=== PATIENT | male | born 1975 | race Caucasian/White ===

== ENCOUNTER 2016-06-23 17:44 | Emergency (ER) | payer MEDICARE, OTHER ==
[~2016-06-23] VITALS: Ht 170.2 cm; Wt 72.0 kg
[~2016-06-23 17:44] MED LIST: BENZ1TAB PO; CLON1 PO; ZYPR5TAB PO
--- NOTE | 2016-06-23 22:15 | PD ---
HPI Chief Complaint: Psychiatric Symptoms Time Seen by Provider: 22:09 Travel History International Travel<30 days: No Contact w/Intl Traveler<30days: No Traveled to known affect area: No History of Present Illness HPI Patient comes in with his mother requesting psychiatric evaluation. Patient has been under the care of Dr. Maier. Patient reports has not been sleeping well on his current medication. Patient was evaluated by different psychiatrist on Tuesday had medications adjusted. Patient continues to not sleep well and is having more agitation. Mother reports he has not slept normally for approximately a week. Denies anything making it better or worse. Denies any homicidal or suicidal ideations. Denies any pain anywhere. PFSH Past Medical History Anxiety: Yes Cardiovascular Problems: No Developmental Delay: Yes Diminished Hearing: No Genitourinary: No Musculoskeletal: No Neurologic: No Psychiatric: Yes Reproductive: No Respiratory: No Past Surgical History Abdominal Surgery: No Cardiac Surgery: No Ear Surgery: No Endocrine Surgery: No Eye Surgery: No Genitourinary Surgery: No Gynecologic Surgery: No Oral Surgery: No Thoracic Surgery: No Social History Alcohol Use: No Tobacco Use: No Substance Use: No Allergies-Medications (Allergen,Severity, Reaction): Coded Allergies: Risperidone (Verified Allergy, Severe, "CAN'T MOVE", 06/23/16) Abilify (Verified Allergy, Intermediate, 06/23/16) Reported Meds & Prescriptions Reported Meds & Active Scripts Active Zyprexa (Olanzapine) 5 Mg Tab 5 Mg PO HS Klonopin (Clonazepam) 1 Mg Tab 1 Mg PO BID PRN Review of Systems Except as stated in HPI: all other systems reviewed are Neg Physical Exam Narrative GENERAL: Well-developed, well nourished, in no acute distress, and non-ill appearing. SKIN: Warm and dry. HEAD: Atraumatic. Normocephalic. EYES: Pupils equal and round. EOMI. No scleral icterus. No injection or drainage. ENT: No nasal bleeding or discharge. Mucous membranes pink and moist. NECK: Trachea midline. Supple. No nuclear rigidity. CARDIOVASCULAR: Regular rate and rhythm. No murmur appreciated. RESPIRATORY: No accessory muscle use. No respiratory distress. Clear to auscultation. Breath sounds equal bilaterally. MUSCULOSKELETAL: No obvious deformities. No clubbing. No cyanosis. No edema. Full range of motion. NEUROLOGICAL: Awake and alert. No obvious cranial nerve deficits. Motor grossly within normal limits. Normal speech. PSYCHIATRIC: Appropriate mood and affect. Data Data Last Documented VS Vital Signs Date Time Temp Pulse Resp B/P Pulse Ox O2 Delivery O2 Flow Rate FiO2 06/24/16 01:59 97.6 79 16 117/61 99 Room Air Orders Complete Blood Count With Diff (06/23/16 22:01) Comprehensive Metabolic Panel (06/23/16 22:01) Psych Screen (06/23/16 22:01) Drug Screen, Random Urine (06/23/16 22:01) Alcohol (Ethanol) (06/23/16 22:01) Labs Laboratory Tests Test 06/23/16 22:19 White Blood Count 7.3 TH/MM3 Red Blood Count 4.75 MIL/MM3 Hemoglobin 13.8 GM/DL Hematocrit 39.9 % Mean Corpuscular Volume 84.0 FL Mean Corpuscular Hemoglobin 29.0 PG Mean Corpuscular Hemoglobin 34.5 % Concent Red Cell Distribution Width 13.0 % Platelet Count 227 TH/MM3 Mean Platelet Volume 8.6 FL Neutrophils (%) (Auto) 55.2 % Lymphocytes (%) (Auto) 33.2 % Monocytes (%) (Auto) 7.7 % Eosinophils (%) (Auto) 3.4 % Basophils (%) (Auto) 0.5 % Neutrophils # (Auto) 4.0 TH/MM3 Lymphocytes # (Auto) 2.4 TH/MM3 Monocytes # (Auto) 0.6 TH/MM3 Eosinophils # (Auto) 0.3 TH/MM3 Basophils # (Auto) 0.0 TH/MM3 CBC Comment AUTO DIFF Differential Comment AUTO DIFF CONFIRMED Sodium Level 143 MEQ/L Potassium Level 4.0 MEQ/L Chloride Level 106 MEQ/L Carbon Dioxide Level 29.6 MEQ/L Anion Gap 7 MEQ/L Blood Urea Nitrogen 8 MG/DL Creatinine 0.96 MG/DL Estimat Glomerular Filtration 87 ML/MIN Rate Random Glucose 100 MG/DL Calcium Level 8.5 MG/DL Total Bilirubin 0.3 MG/DL Aspartate Amino Transf 34 U/L (AST/SGOT) Alanine Aminotransferase 40 U/L (ALT/SGPT) Alkaline Phosphatase 70 U/L Total Protein 6.5 GM/DL Albumin 3.8 GM/DL Ethyl Alcohol Level LESS THAN 3 MG/DL MDM Medical Decision Making Medical Screen Exam Complete: Yes Emergency Medical Condition: Yes Differential Diagnosis Schizophrenia, disruptive mood disorder, insomnia, anxiety, other Narrative Course Patient was seen and examined. Labs were obtained and reviewed. Patient medically cleared for further treatment and evaluation by psych. Final disposition per psych. Diagnosis Primary Impression: DMDD (disruptive mood dysregulation disorder) Condition: Stable Santosh Tolbert Jun 23, 2016 22:15
[2016-06-23 22:48] LABS: BASOPHIL % 0.5 % (0.0-2.0); EOSINOPHIL # 0.3 TH/MM3 (0-0.4); EOSINOPHIL % 3.4 % (0.0-4.0); HEMATOCRIT 39.9 % (39.0-51.0); LYMPH % 33.2 % (9.0-44.0); LYMPHOCYTE # 2.4 TH/MM3 (1.0-4.8); MEAN CORPUSCULAR HGB CONC 34.5 % (32.0-36.0); MONO % 7.7 % (0.0-8.0); NEUT % 55.2 % (16.0-70.0); PLATELET COUNT 227 TH/MM3 (150-450); RED BLOOD COUNT 4.75 MIL/MM3 (4.50-5.90); WHITE BLOOD COUNT 7.3 TH/MM3 (4.0-11.0)
[2016-06-23 22:56] LABS: HEMO FLAGS AUTO DIFF
[2016-06-23 23:05] LABS: ALKALINE PHOSPHATASE 70 U/L (45-117); TOTAL BILIRUBIN ADULT 0.3 MG/DL (0.2-1.0)
[2016-06-23 23:19] LABS: ALT (GPT) 40 U/L (12-78); ANION GAP 7 MEQ/L (5-15); AST (GOT) 34 U/L (15-37); BICARBONATE 29.6 MEQ/L (21.0-32.0); BLOOD UREA NITROGEN 8 MG/DL (7-18); CHLORIDE 106 MEQ/L (98-107); GLOMERULAR FILTRATION RATE 87 ML/MIN (>89); SODIUM (NA) 143 MEQ/L (136-145)
[2016-06-23 23:25] LABS: SCAN/DIFF AUTO DIFF CONFIRMED
[2016-06-24 01:59] VITALS: BP 117/61; PULSE 79; RESP 16; TEMP 97.6; O2SAT 99
[2016-06-28] MEDS ORDERED: ZYPR15TA PO (09:00)
[2016-06-28] MEDS ORDERED: ZYPR5TAB PO (09:00)
[2016-06-28] MEDS ORDERED: QUET400XR PO ×2 (11:15→11:19)
[2016-07-05] MEDS ORDERED: SERO100T PO (11:17)
[2016-07-05] MEDS ORDERED: QUET400XR PO (11:17)
[2016-07-05] MEDS ORDERED: CLON1 PO (11:17)
[2016-07-26] MEDS ORDERED: SERO100T PO (10:51)
[2016-07-26] MEDS ORDERED: QUET400XR PO (10:51)
[2016-09-03] MEDS ORDERED: SAPH5SUB3 SL ×2 (10:29→10:32)
[2016-09-16] MEDS ORDERED: HALO2TAB PO ×2 (09:22→10:05)
[2016-09-16] MEDS ORDERED: BENZ1TAB PO ×2 (10:03→10:05)
[2016-09-28] MEDS ORDERED: SERO100T PO ×2 (11:00)
[2016-10-12] MEDS ORDERED: ZIPR40 PO ×2 (09:45→09:46)
[2016-10-27] MEDS ORDERED: SERO300T PO ×2 (09:38→09:39)
[2016-10-27] MEDS ORDERED: LORA-474 PO (09:39)
== END 2016-06-24 07:14 | disposition home or self-care (01) ==
LOC: NEPC 17:44
DX: F34.81 Disruptive mood dysregulation disorder (principal)
CPT/HCPCS: 80053; 80320; 85025; 99282

== ENCOUNTER 2016-07-29 08:52 | Emergency (ER) | payer MEDICARE, OTHER ==
[~2016-07-29] VITALS: Ht 172.7 cm; Wt 70.0 kg
[~2016-07-29 08:52] MED LIST changes: -BENZ1TAB PO; -CLON1 PO; +QUET400XR PO; +SERO100T PO; -ZYPR5TAB PO
[2016-07-29 08:53] VITALS: BP 114/66; PULSE 54; RESP 16; O2SAT 98
[2016-07-29 09:07] VITALS: BP 110/66; PULSE 54; RESP 18; TEMP 97.5; O2SAT 99
[2016-07-29 09:49] LABS: AUTOMATED NEUTROPHIL # 5.1 TH/MM3 (1.8-7.7); BASOPHIL % 0.2 % (0.0-2.0); EOSINOPHIL % 0.6 % (0.0-4.0); HEMATOCRIT 46.9 % (39.0-51.0); HEMO FLAGS DIFF FINAL; LYMPH % 21.2 % (9.0-44.0); LYMPHOCYTE # 1.5 TH/MM3 (1.0-4.8); MEAN CELL VOLUME 84.5 FL (80.0-100.0); MEAN CORPUSCULAR HEMOGLOBIN 27.9 PG (27.0-34.0); MEAN CORPUSCULAR HGB CONC 33.1 % (32.0-36.0); MONO % 5.8 % (0.0-8.0); NEUT % 72.2 % (16.0-70.0); PLATELET COUNT 262 TH/MM3 (150-450); RED BLOOD COUNT 5.56 MIL/MM3 (4.50-5.90); RED CELL DISTRIBUTION WIDTH 13.1 % (11.6-17.2); WHITE BLOOD COUNT 7.1 TH/MM3 (4.0-11.0)
[2016-07-29 10:07] LABS: BICARBONATE 28.2 MEQ/L (21.0-32.0); POTASSIUM 3.8 MEQ/L (3.5-5.1)
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
[2016-07-29 13:00] VITALS: BP 110/59; PULSE 61; RESP 16; O2SAT 98
[2016-09-03] MEDS ORDERED: SAPH5SUB3 SL ×2 (10:29→10:32)
[2016-09-16] MEDS ORDERED: HALO2TAB PO ×2 (09:22→10:05)
[2016-09-16] MEDS ORDERED: BENZ1TAB PO ×2 (10:03→10:05)
[2016-09-28] MEDS ORDERED: SERO100T PO ×2 (11:00)
[2016-10-12] MEDS ORDERED: ZIPR40 PO ×2 (09:45→09:46)
[2016-10-27] MEDS ORDERED: SERO300T PO ×2 (09:38→09:39)
[2016-10-27] MEDS ORDERED: LORA-474 PO (09:39)
[2016-11-12] MEDS ORDERED: LORA-474 PO ×3 (11:46→11:47)
[2016-11-12] MEDS ORDERED: SERO300T PO (11:46)
== END 2016-07-29 13:45 ==
LOC: NEPE 08:52 → NETRI 13:45
DX: M79.1 Myalgia (principal); R53.83 Other fatigue; T43.595A Adverse effect of other antipsychotics and neuroleptics, initial encounter; F84.0 Autistic disorder; Y92.009 Unspecified place in unspecified non-institutional (private) residence as the place of occurrence of the external cause
CPT/HCPCS: 80048; 82550; 85025; 99283

== ENCOUNTER 2016-07-29 13:47 | Inpatient (IN) | payer MEDICARE, OTHER ==
[~2016-07-29] VITALS: Ht 170.2 cm; Wt 67.5 kg
[2016-07-29 14:22] VITALS: BP 117/57; PULSE 60; O2SAT 99
[2016-07-29] MEDS ORDERED: ACETAMINOPHEN 325 MG TAB PO PRN (15:00)
[2016-07-29] MEDS ORDERED: ALUMINUM/MAGNESIUM/SIMETH 30 ML CUP PO PRN (15:00)
[2016-07-29] MEDS ORDERED: NICOTINE 21 MG/24 HR PATCH T-DERMAL SCH (15:00)
[2016-07-29] MEDS ORDERED: LORazepam 2 MG/ML VIAL IM PRN (15:00)
[2016-07-29] MEDS ORDERED: MAGNESIUM HYDROXIDE SUSP 30 ML CUP PO PRN (15:00)
[2016-07-29] MEDS ORDERED: LORazepam 1 MG TAB PO PRN (15:00)
[2016-07-29] MEDS ORDERED: REMOVE OLD NICOTINE PATCH T-DERMAL SCH (21:00)
[2016-07-30 06:05] VITALS: BP 114/58; PULSE 60; RESP 18; TEMP 99.3; O2SAT 98
[2016-07-30 07:44] LABS: AUTOMATED NEUTROPHIL # 6.3 TH/MM3 (1.8-7.7); BASOPHIL % 0.1 % (0.0-2.0); EOSINOPHIL % 0.4 % (0.0-4.0); HEMATOCRIT 44.5 % (39.0-51.0); HEMO FLAGS DIFF FINAL; LYMPH % 21.6 % (9.0-44.0); LYMPHOCYTE # 1.9 TH/MM3 (1.0-4.8); MEAN CELL VOLUME 82.4 FL (80.0-100.0); MEAN CORPUSCULAR HGB CONC 33.9 % (32.0-36.0); MONO % 6.2 % (0.0-8.0); NEUT % 71.7 % (16.0-70.0); PLATELET COUNT 246 TH/MM3 (150-450); RED BLOOD COUNT 5.41 MIL/MM3 (4.50-5.90); RED CELL DISTRIBUTION WIDTH 13.1 % (11.6-17.2); WHITE BLOOD COUNT 8.7 TH/MM3 (4.0-11.0)
[2016-07-30 08:24] LABS: ANION GAP 10 MEQ/L (5-15); BICARBONATE 28.4 MEQ/L (21.0-32.0); BLOOD UREA NITROGEN 14 MG/DL (7-18); CHLORIDE 102 MEQ/L (98-107); GLOMERULAR FILTRATION RATE 100 ML/MIN (>89); HDL CHOLESTEROL 49.6 MG/DL (40.0-60.0); LDL CHOLESTEROL 83 MG/DL (0-99); POTASSIUM 3.5 MEQ/L (3.5-5.1); SODIUM (NA) 140 MEQ/L (136-145)
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
[2016-07-30 13:53] LABS: HEMOGLOBIN A1a 0.8 %; HEMOGLOBIN A1b 0.9 %; HEMOGLOBIN F 0.8 %; HEMOGLOBIN LA1C 1.8 %; HEMOGLOBIN P3 3.5 %
--- NOTE | 2016-07-30 16:47 | RADRPT ---
EXAM DATE/TIME: 07/30/2016 16:27 [facility] COMPARISON: CT BRAIN W/O CONTRAST, January 15, 2011, 15:54. INDICATIONS : Altered mental status. RADIATION DOSE: 36.33 CTDIvol (mGy) MEDICAL HISTORY : Developmental delay. SURGICAL HISTORY : None. ENCOUNTER: Initial ACUITY: 1 day PAIN SCALE: 0/10 LOCATION: cranial TECHNIQUE: Multiple contiguous axial images were obtained of the head. Using automated exposure control and adj ustment of the mA and/or kV according to patient size, radiation dose was kept as low as reasonably a chievable to obtain optimal diagnostic quality images. FINDINGS: CEREBRUM: The ventricles are normal for age. No evidence of midline shift, mass lesion, hemorrhage or acute in farction. No extra-axial fluid collections are seen. POSTERIOR FOSSA: The cerebellum and brainstem are intact. The 4th ventricle is midline. The cerebellopontine angle i s unremarkable. EXTRACRANIAL: The visualized portion of the orbits is intact. SKULL: The calvaria is intact. No evidence of skull fracture. CONCLUSION: No acute disease. Gwyn Del Rio MD on July 30, 2016 at 16:45 Board Certified Radiologist. This report was verified electronically.
[2016-07-30 19:27] VITALS: BP 118/61; PULSE 57; RESP 18; TEMP 98.4; O2SAT 97
[2016-07-31 06:22] VITALS: BP 107/58; PULSE 51; RESP 18; TEMP 98.5; O2SAT 97
[2016-07-31 18:27] VITALS: BP 126/56; PULSE 74; RESP 18; TEMP 98.7; O2SAT 97
--- NOTE | 2016-07-31 21:04 | HHI.PYPN ---
Subjective Remarks Pt seen and discussed with staff. RN reports that pt's oral intake has increased but requires staff prompting and prefers packaged food. He is alert without sedation. No behavioral problems on unit. Objective Alert: Yes [place]: Person, Place Mood: Calm Affect: Restricted Memory Intact: Comment (intact) Hallucinations: Other (denies and does not appear to be responding internally) Delusions: No Delusion Type: Other (none) Suicidal: Ideation (denies) Homicidal: Ideation (denies) Insight/Judgement poor Vitals/IOs Vital Signs Date Time Temp Pulse Resp B/P Pulse Ox O2 Delivery O2 Flow Rate FiO2 07/31/16 18:27 98.7 74 18 126/56 97 Assessment & Plan Problem List: (1) Adjustment disorder with mixed disturbance of emotions and conduct ICD Code: F43.25 Assessment & Plan Continue observation and medication washout for now. Continue to monitor intake. Estimated LOS: days Justification for Cont. Inpt. impairments in self care Kina Esposito MD Jul 31, 2016 21:04
[2016-08-01 06:00] VITALS: BP 134/84; PULSE 58; RESP 16; TEMP 97.6; O2SAT 94
--- NOTE | 2016-08-01 15:32 | HHI.PYPN ---
Subjective Remarks Pt seen and discussed with staff. Pt has been cooperative with care. No agitation or aggression. Staff report improved eating and drinking and that pt has preferences for sweets including fruit. Pt has been pacing halls. He states that he is feeling "fine". Limited engagement. No SI/HI Objective Alert: Yes [place]: Person, Place Mood: Calm Affect: Restricted Memory Intact: Comment (intact) Hallucinations: Other (denies and does not appear to be responding internally) Delusions: No Delusion Type: Other (none) Suicidal: Ideation (denies) Homicidal: Ideation (denies) Insight/Judgement poor Vitals/IOs Vital Signs Date Time Temp Pulse Resp B/P Pulse Ox O2 Delivery O2 Flow Rate FiO2 08/01/16 06:00 97.6 58 16 134/84 94 Assessment & Plan Problem List: (1) Adjustment disorder with mixed disturbance of emotions and conduct ICD Code: F43.25 Assessment & Plan Continue current tx plan. Estimated LOS: days Justification for Cont. Inpt. risk of decompensation. Kina Esposito MD Aug 01, 2016 15:32
[2016-08-01 18:34] VITALS: BP 135/69; PULSE 88; RESP 17; TEMP 98.2; O2SAT 97
[2016-08-02 05:57] VITALS: BP 115/62; PULSE 53; RESP 16; TEMP 97.6; O2SAT 97
--- NOTE | 2016-08-02 15:47 | HHI.PYPN ---
Subjective Remarks Patient seen in [place] sleeping in Loren chair with nurse Aleksandar, patient somewhat delayed in his responses somewhat anxious also prior contact over no behavioral issues responses are brief and somewhat concrete. Though he denies suicidality of voices at this time. For now continue treatment and observation and assessment Review of Systems Except as stated in HPI: all other systems reviewed are Neg Objective Alert: Yes [place]: Person, Place Mood: Calm Affect: Restricted Memory Intact: Comment (intact) Hallucinations: Other (denies and does not appear to be responding internally) Delusions: No Delusion Type: Other (none) Suicidal: Ideation (denies) Homicidal: Ideation (denies) Insight/Judgement Poor Vitals/IOs Vital Signs Date Time Temp Pulse Resp B/P Pulse Ox O2 Delivery O2 Flow Rate FiO2 08/02/16 05:57 97.6 53 16 115/62 97 Intake and Output 08/01/16 08/01/16 08/02/16 08:00 16:00 00:00 Intake Total 120 ml 240 ml Balance 120 ml 240 ml Assessment & Plan Problem List: (1) Adjustment disorder with mixed disturbance of emotions and conduct ICD Code: F43.25 Assessment & Plan Estimated LOS: days patient showing no signs of aggression or irritability at this time he appears more withdrawn and isolating. For now continue observation Justification for Cont. Inpt. At this time patient will decompensate if placed in the lower level of care Discharge Planning To be determined Gwyn Lassiter MD Aug 02, 2016 15:47
[2016-08-02 18:56] VITALS: BP 112/61; PULSE 57; RESP 16; TEMP 97.6; O2SAT 94
[2016-08-03 06:13] VITALS: BP 100/58; PULSE 60; RESP 18; TEMP 98.3; O2SAT 96
--- NOTE | 2016-08-03 11:36 | HHI.PYPN ---
Subjective Remarks Patient seen in day room with nurse Leda, patient sitting in chair at table somewhat guarded look on his face. He is alert responses to my questions are somewhat delayed brief basically saying "I wish". He has otherwise been no behavioral problems. Did eat all his breakfast this morning. Nursing staff has been in contact with patient's mother and has arranged for meeting with us for about 9 AM tomorrow morning. At mother's request we'll repeat labs on the patient tomorrow including CBC CMP and UA to verify patient's level of hydration , that there is any processes that he has developed the interval between the last labs Review of Systems Except as stated in HPI: all other systems reviewed are Neg Objective Alert: Yes [place]: Person, Place Mood: Calm Affect: Restricted Memory Intact: Comment (intact) Hallucinations: Other (denies and does not appear to be responding internally) Delusions: No Delusion Type: Other (none) Suicidal: Ideation (denies) Homicidal: Ideation (denies) Insight/Judgement Very poor Vitals/IOs Vital Signs Date Time Temp Pulse Resp B/P Pulse Ox O2 Delivery O2 Flow Rate FiO2 08/03/16 06:13 98.3 60 18 100/58 96 Intake and Output 08/02/16 08/02/16 08/03/16 08:00 16:00 00:00 Intake Total 1380 ml Balance 1380 ml Assessment & Plan Problem List: (1) Adjustment disorder with mixed disturbance of emotions and conduct ICD Code: F43.25 Assessment & Plan Estimated LOS: days patient no significant behavioral problems, does need redirection encouragement at times. We'll meet with patient's mother tomorrow morning about 9 AM will repeat labs tomorrow morning Justification for Cont. Inpt. At this time patient will decompensate if placed in the lower level of care Discharge Planning To be determined Gwyn Lassiter MD Aug 03, 2016 11:36
[2016-08-03 20:27] VITALS: BP 117/71; PULSE 60; RESP 16; TEMP 97.8; O2SAT 96
[2016-08-04 04:19] LABS: BACTERIA, URINE RARE /hpf; BLOOD, URINE NEG (NEG); COMMENT (UR) CULT NOT INDICATED; CULTURE IF INDICATED CULT NOT INDICATED; GLUCOSE,URINE NEG (NEG); KETONE, URINE NEG (NEG); MUCUS URINE FEW /lpf (OCC); NITRITE,URINE NEG (NEG); PH, URINE 6.5 (5.0-8.5); SQUAMOUS EPITHELIAL CELL URINE <1 /hpf (0-5); URINE COLOR YELLOW (YELLW/STRAW)
[2016-08-04 06:01] VITALS: BP 111/56; PULSE 54; RESP 15; TEMP 99.1; O2SAT 97
[2016-08-04 08:01] LABS: AUTOMATED NEUTROPHIL # 7.4 TH/MM3 (1.8-7.7); BASOPHIL % 0.2 % (0.0-2.0); EOSINOPHIL # 0.4 TH/MM3 (0-0.4); EOSINOPHIL % 3.5 % (0.0-4.0); HEMATOCRIT 43.6 % (39.0-51.0); HEMO FLAGS DIFF FINAL; LYMPH % 19.6 % (9.0-44.0); LYMPHOCYTE # 2.1 TH/MM3 (1.0-4.8); MEAN CELL VOLUME 83.1 FL (80.0-100.0); MEAN CORPUSCULAR HEMOGLOBIN 28.8 PG (27.0-34.0); MEAN CORPUSCULAR HGB CONC 34.6 % (32.0-36.0); MONO % 7.4 % (0.0-8.0); NEUT % 69.3 % (16.0-70.0); PLATELET COUNT 258 TH/MM3 (150-450); RED BLOOD COUNT 5.24 MIL/MM3 (4.50-5.90); RED CELL DISTRIBUTION WIDTH 12.9 % (11.6-17.2); WHITE BLOOD COUNT 10.6 TH/MM3 (4.0-11.0)
[2016-08-04 08:07] LABS: ALT (GPT) 17 U/L (12-78); ANION GAP 7 MEQ/L (5-15); AST (GOT) 6 U/L (15-37); BICARBONATE 28.9 MEQ/L (21.0-32.0); BLOOD UREA NITROGEN 11 MG/DL (7-18); CHLORIDE 101 MEQ/L (98-107); GLOMERULAR FILTRATION RATE 106 ML/MIN (>89); POTASSIUM 3.8 MEQ/L (3.5-5.1); SODIUM (NA) 137 MEQ/L (136-145)
[2016-08-04 08:09] LABS: ALKALINE PHOSPHATASE 77 U/L (45-117); TOTAL BILIRUBIN ADULT 0.4 MG/DL (0.2-1.0)
--- NOTE | 2016-08-04 12:30 | HHI.PYPN ---
Subjective Remarks Met with patient's mother and counselor Lora, spoke with her for about 45 minutes. Discussed patient's behavior chronologically his various contact with mental health system since an adolescent, prior medications, and hospitalizations. Along with her hopes and expectations for patients recovery. It then discussed patient with the treatment team her we discussed diagnosis treatment medication management and discharge plans. And then met with patient on the unit, as is coming out of unit he was at the door to the unit started to walk out but was easily redirected back on the unit. Today he was also found to be laying down on a bed and another patient's room, again easily redirected from there. Patient is eating well taking fluids and, no significant out-of- control behaviors noted though continues to wander and is somewhat aimless manner. His responses are brief quite childlike and minimal. We'll continue to observe at the present time with though psychotropic medications continue to further assessment of his behaviors. No considering the fact that he had of his father 3 years ago and his grandmother about a year ago there may be a component of depression with this. Mother also stated she has noted episodes of behaviors that could be perhaps interpreted as hypomanic to manic behavior. We may want to consider a mood stabilizer. Routine labs drawn this morning have all come back within normal limits Review of Systems Except as stated in HPI: all other systems reviewed are Neg Objective Alert: Yes [place]: Person, Place Mood: Calm Affect: Restricted Memory Intact: Comment (intact) Hallucinations: Other (denies and does not appear to be responding internally) Delusions: No Delusion Type: Other (none) Suicidal: Ideation (denies) Homicidal: Ideation (denies) Insight/Judgement Very poor Labs Test 08/04/16 08/04/16 08/04/16 03:45 06:20 06:26 Urine Color YELLOW Urine Turbidity HAZY Urine pH 6.5 Urine Specific [place] 1.018 Urine Protein TRACE mg/dL Urine Glucose (UA) NEG mg/dL Urine Ketones NEG mg/dL Urine Occult Blood NEG Urine Nitrite NEG Urine Bilirubin NEG Urine Urobilinogen LESS THAN 2.0 MG/DL Urine Leukocyte Esterase NEG Urine RBC 5 /hpf Urine WBC 2 /hpf Urine Squamous Epithelial <1 /hpf Cells Urine Amorphous Sediment RARE Urine Bacteria RARE /hpf Urine Mucus FEW /lpf Urine Yeast (Budding) RARE Microscopic Urinalysis Comment CULT NOT INDICATED Sodium Level 137 MEQ/L Potassium Level 3.8 MEQ/L Chloride Level 101 MEQ/L Carbon Dioxide Level 28.9 MEQ/L Anion Gap 7 MEQ/L Blood Urea Nitrogen 11 MG/DL Creatinine 0.81 MG/DL Estimat Glomerular Filtration 106 ML/MIN Rate Random Glucose 80 MG/DL Calcium Level 9.4 MG/DL Total Bilirubin 0.4 MG/DL Aspartate Amino Transf 6 U/L (AST/SGOT) Alanine Aminotransferase 17 U/L (ALT/SGPT) Alkaline Phosphatase 77 U/L Total Protein 7.2 GM/DL Albumin 4.1 GM/DL White Blood Count 10.6 TH/MM3 Red Blood Count 5.24 MIL/MM3 Hemoglobin 15.1 GM/DL Hematocrit 43.6 % Mean Corpuscular Volume 83.1 FL Mean Corpuscular Hemoglobin 28.8 PG Mean Corpuscular Hemoglobin 34.6 % Concent Red Cell Distribution Width 12.9 % Platelet Count 258 TH/MM3 Mean Platelet Volume 9.1 FL Neutrophils (%) (Auto) 69.3 % Lymphocytes (%) (Auto) 19.6 % Monocytes (%) (Auto) 7.4 % Eosinophils (%) (Auto) 3.5 % Basophils (%) (Auto) 0.2 % Neutrophils # (Auto) 7.4 TH/MM3 Lymphocytes # (Auto) 2.1 TH/MM3 Monocytes # (Auto) 0.8 TH/MM3 Eosinophils # (Auto) 0.4 TH/MM3 Basophils # (Auto) 0.0 TH/MM3 CBC Comment DIFF FINAL Differential Comment Vitals/IOs Vital Signs Date Time Temp Pulse Resp B/P Pulse Ox O2 Delivery O2 Flow Rate FiO2 08/04/16 06:01 99.1 54 15 111/56 97 Intake and Output 08/03/16 08/03/16 08/04/16 08:00 16:00 00:00 Intake Total 840 ml 720 ml Balance 840 ml 720 ml Assessment & Plan Problem List: (1) Adjustment disorder with mixed disturbance of emotions and conduct ICD Code: F43.25 (2) Autism spectrum disorder ICD Code: F84.0 Assessment & Plan Estimated LOS: days patient continues to monitor the vague escape seeking behaviors. We'll further monitor thus psychotropics to assess stability of mood and behavior. We'll continue to consider possibility of an antidepressant and a mood stabilizer Justification for Cont. Inpt. At this time patient will decompensate if placed in a lower level of care Discharge Planning To be determined Gwyn Lassiter MD Aug 04, 2016 12:30
[2016-08-04 20:01] VITALS: BP 113/62; PULSE 68; RESP 17; TEMP 98.2; O2SAT 95
[2016-08-05 06:24] VITALS: BP 101/62; PULSE 58; RESP 16; TEMP 97.8; O2SAT 97
[2016-08-05 09:01] VITALS: BP 99/55; PULSE 62
--- NOTE | 2016-08-05 12:27 | HHI.PYPN ---
Subjective Remarks Patient seen in dayroom and in [place] with nurse Anamika. Chart reviewed. It appears patient's appetite is good and he is sleeping okay, patient continues wandering the unit somewhat confused expression on his face wandering into other patient's rooms and looking towards the dorsal unit. He is easily redirectable, there appears to been no behavioral issues related to this. However when considering mother's history of patient's episodes of mood lability and possible arousable I think a trial of a mood stabilizer is indicated. We will start patient on Tegretol chewable 100 mg twice a day Review of Systems Except as stated in HPI: all other systems reviewed are Neg Objective Alert: Yes [place]: Person, Place Mood: Anxious (mildly), Calm Affect: Restricted Memory Intact: Comment (intact) Hallucinations: Other (denies and does not appear to be responding internally) Delusions: No Delusion Type: Other (none) Suicidal: Ideation (denies) Homicidal: Ideation (denies) Insight/Judgement Very poor Vitals/IOs Vital Signs Date Time Temp Pulse Resp B/P Pulse Ox O2 Delivery O2 Flow Rate FiO2 08/05/16 09:01 62 99/55 08/05/16 06:24 97.8 16 97 Intake and Output 08/04/16 08/04/16 08/05/16 08:00 16:00 00:00 Intake Total 240 ml Balance 240 ml Assessment & Plan Problem List: (1) Adjustment disorder with mixed disturbance of emotions and conduct ICD Code: F43.25 (2) Autism spectrum disorder ICD Code: F84.0 Assessment & Plan Estimated LOS: days patient continues to wander somewhat confused look on his face. Responses continue quite brief and minimal. Appetite and sleep seem to be doing fairly well. Will initiate Tegretol Justification for Cont. Inpt. At this time patient will decompensate if place to the lower level of care Discharge Planning To be determined Gwyn Lassiter MD Aug 05, 2016 12:26
[2016-08-05 18:00] VITALS: BP 112/73; PULSE 75; RESP 17; TEMP 98.1; O2SAT 97
[2016-08-06 06:00] VITALS: BP 103/62; PULSE 51; RESP 18; TEMP 98.1
--- NOTE | 2016-08-06 15:08 | HHI.PYPN ---
Subjective Remarks Patient seen in day room, patient no behavioral problems. He continues to wander the halls at times laying down on other patient's beds but is easily redirected away from there. His appetite is been good. Is been sleeping well. I also did talk with patient's mother discussing the trowel of Tegretol. Patient mother would prefer we give the patient over the weekend to observe his behavior see if he returns more to her perceived prior level of functioning. I agreed to this. For now continue treatment and observation Review of Systems Except as stated in HPI: all other systems reviewed are Neg Objective Alert: Yes [place]: Person, Place Mood: Anxious (mildly), Calm Affect: Restricted Memory Intact: Comment (intact) Hallucinations: Other (denies and does not appear to be responding internally) Delusions: No Delusion Type: Other (none) Suicidal: Ideation (denies) Homicidal: Ideation (denies) Insight/Judgement Very poor Vitals/IOs Vital Signs Date Time Temp Pulse Resp B/P Pulse Ox O2 Delivery O2 Flow Rate FiO2 08/06/16 06:00 98.1 51 18 103/62 08/05/16 18:00 97 Intake and Output 08/05/16 08/05/16 08/06/16 08:00 16:00 00:00 Intake Total 480 ml 1200 ml 960 ml Balance 480 ml 1200 ml 960 ml Assessment & Plan Problem List: (1) Adjustment disorder with mixed disturbance of emotions and conduct ICD Code: F43.25 (2) Autism spectrum disorder ICD Code: F84.0 Assessment & Plan Estimated LOS: days patient continues to wander, please redirectable. So far showed no significant behavioral issues, is eating well sleeping well. For now continue observation assessment Justification for Cont. Inpt. At this time patient will decompensate if placed in a lower level of care Discharge Planning To be determined Gwyn Lassiter MD Aug 06, 2016 15:08
[2016-08-06 18:00] VITALS: BP 113/57; PULSE 74; RESP 18; TEMP 98.6; O2SAT 96
[2016-08-07 05:28] VITALS: BP 102/58; PULSE 55; RESP 16; TEMP 97.6; O2SAT 96
--- NOTE | 2016-08-07 14:22 | HHI.PYPN ---
Subjective Remarks Patient was seen and case discussed with nursing. Patient is anxious and hypoverbal. Flat affect. Guarded. His behavior is likely due to Asperger's. Is not on any medications at this time. Largely keeps to himself. Denies suicidal ideations intent or plan. Objective Alert: Yes [place]: Person, Place Mood: Anxious (mildly) Affect: Flat Memory Intact: Comment (intact) Hallucinations: Other (denies and does not appear to be responding internally) Delusions: No Delusion Type: Other (none) Suicidal: Ideation (denies) Homicidal: Ideation (denies) Insight/Judgement Poor Vitals/IOs Vital Signs Date Time Temp Pulse Resp B/P Pulse Ox O2 Delivery O2 Flow Rate FiO2 08/07/16 05:28 97.6 55 16 102/58 96 Intake and Output 08/06/16 08/06/16 08/07/16 08:00 16:00 00:00 Intake Total 480 ml 240 ml Balance 480 ml 240 ml Assessment & Plan Problem List: (1) Adjustment disorder with mixed disturbance of emotions and conduct ICD Code: F43.25 (2) Autism spectrum disorder ICD Code: F84.0 Assessment & Plan Continue current treatment plan Justification for Cont. Inpt. Patient will decompensate in a less restrictive setting Roger Thorpe DO Aug 07, 2016 14:22
--- NOTE | 2016-08-08 11:59 | HHI.PYPN ---
Subjective Remarks The patient was seen and case discussed with nursing. Patient is more interactive today. He went to the general area for lunch without direction from the [employer]. Remains anxious and blunted however. Compliant with his medications. During the one-word answers to most questions. Denies auditory visual hallucinations. Denies suicidal ideation intent or plan Objective Alert: Yes [place]: Person, Place Mood: Anxious, Oppositional Affect: Blunted Memory Intact: Comment (intact) Hallucinations: Other (denies and does not appear to be responding internally) Delusions: No Delusion Type: Other (none) Suicidal: Ideation (denies) Homicidal: Ideation (denies) Insight/Judgement Improving Vitals/IOs Vital Signs Date Time Temp Pulse Resp B/P Pulse Ox O2 Delivery O2 Flow Rate FiO2 08/07/16 05:28 97.6 55 16 102/58 96 Intake and Output 08/07/16 08/07/16 08/08/16 08:00 16:00 00:00 Intake Total 240 ml 720 ml 1080 ml Output Total 0 ml Balance 240 ml 720 ml 1080 ml Assessment & Plan Problem List: (1) Adjustment disorder with mixed disturbance of emotions and conduct ICD Code: F43.25 (2) Autism spectrum disorder ICD Code: F84.0 Assessment & Plan Continue current treatment plan Justification for Cont. Inpt. Patient will decompensate in a less restrictive setting Roger Thorpe DO Aug 08, 2016 11:59
[2016-08-08 19:04] VITALS: BP 122/58; PULSE 68; RESP 18; TEMP 98.1; O2SAT 96
[2016-08-09 05:27] VITALS: BP 107/67; PULSE 57; RESP 17; TEMP 97.9; O2SAT 97
--- NOTE | 2016-08-09 16:12 | HHI.PYPN ---
Subjective Remarks Patient discussed with treatment team and patient's mother, chart review, patient seen on unit. Mother feels patient is improving though not back to her somewhat wishful baseline. We did discuss alternatives including the addition of a mood stabilizer, Tegretol, will follow up with [facility] and Dr. barnhart. Or perhaps having her son go home with her tomorrow drug-free with continued observation and assessment at home the follow-up with next week. We also reassured patient's mother that she could have her son brought back for ED for a screening assessment at any time if she feels he is decompensating. Mother decided the latter option thus patient will be discharged tomorrow to his mother Review of Systems Except as stated in HPI: all other systems reviewed are Neg Objective Alert: Yes [place]: Person, Place Mood: Anxious, Oppositional Affect: Blunted Memory Intact: Comment (intact) Hallucinations: Other (denies and does not appear to be responding internally) Delusions: No Delusion Type: Other (none) Suicidal: Ideation (denies) Homicidal: Ideation (denies) Insight/Judgement Very poor Labs Test 08/09/16 06:20 Carbamazepine (Tegretol) Level LESS THAN 0.5 MCG/ML Vitals/IOs Vital Signs Date Time Temp Pulse Resp B/P Pulse Ox O2 Delivery O2 Flow Rate FiO2 08/09/16 05:27 97.9 57 17 107/67 97 Intake and Output 08/08/16 08/08/16 08/09/16 08:00 16:00 00:00 Intake Total 840 ml 600 ml Balance 840 ml 600 ml Assessment & Plan Problem List: (1) Adjustment disorder with mixed disturbance of emotions and conduct ICD Code: F43.25 (2) Autism spectrum disorder ICD Code: F84.0 Assessment & Plan Estimated LOS: days patient showing no significant behavior problems at this time, though he still wonders and needs redirection he is somewhat passive. This sleeping well and his appetite is good. For now consider discharge tomorrow to his mother Justification for Cont. Inpt. Will consider discharge tomorrow towards mother Discharge Planning See above Gwyn Lassiter MD Aug 09, 2016 16:12
[2016-08-09 18:00] VITALS: BP 126/60; PULSE 75; RESP 16; TEMP 97.9; O2SAT 97
[2016-08-10 06:00] VITALS: BP 112/68; PULSE 74; RESP 18; TEMP 96.9; O2SAT 97
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
[2016-09-03] MEDS ORDERED: SAPH5SUB3 SL ×2 (10:29→10:32)
[2016-09-16] MEDS ORDERED: HALO2TAB PO ×2 (09:22→10:05)
[2016-09-16] MEDS ORDERED: BENZ1TAB PO ×2 (10:03→10:05)
[2016-09-28] MEDS ORDERED: SERO100T PO ×2 (11:00)
[2016-10-12] MEDS ORDERED: ZIPR40 PO ×2 (09:45→09:46)
[2016-10-27] MEDS ORDERED: SERO300T PO ×2 (09:38→09:39)
[2016-10-27] MEDS ORDERED: LORA-474 PO (09:39)
[2016-11-12] MEDS ORDERED: LORA-474 PO ×3 (11:46→11:47)
[2016-11-12] MEDS ORDERED: SERO300T PO (11:46)
== END 2016-08-10 12:30 | disposition home or self-care (01) | DRG 882 ==
LOC: H260 13:47 → H250 07-31 21:56
PROVIDERS: ADMIT Psychiatry & Neurology Psychiatry; ATTEND Psychiatry & Neurology Psychiatry
DX: F43.25 Adjustment disorder with mixed disturbance of emotions and conduct (principal); F84.0 Autistic disorder; M79.1 Myalgia; R53.83 Other fatigue; T43.595A Adverse effect of other antipsychotics and neuroleptics, initial encounter; Y92.009 Unspecified place in unspecified non-institutional (private) residence as the place of occurrence of the external cause
CPT/HCPCS: 70450; 80048; 80053; 80061; 80156; 81001; 82550; 83036; 84443; 85025; 99283

== ENCOUNTER 2016-10-13 17:58 | Inpatient (IN) | payer MEDICARE, OTHER ==
[~2016-10-13] VITALS: Ht 172.7 cm; Wt 72.5 kg
[~2016-10-13 17:58] MED LIST changes: -QUET400XR PO; -SERO100T PO; +ZIPR40 PO
[2016-10-13 18:00] VITALS: BP 155/84; PULSE 86; RESP 24; TEMP 97.9; O2SAT 97
--- NOTE | 2016-10-13 18:14 | PD ---
Physical Exam Time Seen by Provider: 18:07 Narrative 41yo M having "breakdown." Having verbal outbursts. Followed by Dr. Maier. repetitive speech with outbursts in triage. Started last Tuesday and has been escalating. Patient seen in triage. VS reviewed. Awaiting bed placement. Data Data Last Documented VS Vital Signs Date Time Temp Pulse Resp B/P Pulse Ox O2 Delivery O2 Flow Rate FiO2 10/13/16 18:00 97.9 86 24 155/84 97 Room Air [facility] Supervised Visit with MATT: Rukhsana Stinson October 13, 2016 18:14
--- NOTE | 2016-10-13 20:54 | PD ---
HPI Chief Complaint: Psychiatric Symptoms Time Seen by Provider: 20:20 Travel History International Travel<30 days: No Contact w/Intl Traveler<30days: No Traveled to known affect area: No History of Present Illness HPI 41yo M with PMH of adjustment disorder and autism brought in by mother because of increasingly more odd behavior since last week. She called his psychiatrist who started him on geodon yesterday. However, mother states it is not helping. States his psychiatrist was Dr. Lagos. Denies any fever, chest pain, sob, n/v , abdominal pain, focal weakness or numbness or trauma. Pt was last admitted to psych 07/29/16. Mother states she has been having these episodes of mental confusion since his adverse effect to abilify last March. PFSH Past Medical History Anxiety: Yes Cancer: No Cardiovascular Problems: No Developmental Delay: Yes Diabetes: No Diminished Hearing: No Genitourinary: No Headaches: No Musculoskeletal: No Neurologic: No Psychiatric: No Reproductive: No Respiratory: No Seizures: No Past Surgical History Abdominal Surgery: No Cardiac Surgery: No Ear Surgery: No Endocrine Surgery: No Eye Surgery: No Genitourinary Surgery: No Gynecologic Surgery: No Oral Surgery: No Thoracic Surgery: No Social History Alcohol Use: No Tobacco Use: No Substance Use: No Allergies-Medications (Allergen,Severity, Reaction): Coded Allergies: Risperidone (Verified Allergy, Severe, "CAN'T MOVE", 10/13/16) Abilify (Verified Allergy, Intermediate, 10/13/16) Uncoded Allergies: abilify maintena (Adverse Reaction, Severe, 06/24/16) Reported Meds & Prescriptions Reported Meds & Active Scripts Active Geodon (Ziprasidone) 40 Mg Cap 40 Mg PO BID Reported Quetiapine (Quetiapine Fumarate) 100 Mg Tab 100 Mg PO BID Ziprasidone 40 Mg Cap 40 Mg PO BID Review of Systems Except as stated in HPI: all other systems reviewed are Neg Physical Exam Narrative GENERAL: 41yo M not in distress. SKIN: Focused skin assessment warm/dry. HEAD: Atraumatic. Normocephalic. EYES: Pupils equal and round at 4mm bilaterally. EOMI. No scleral icterus. No injection or drainage. ENT: No nasal bleeding or discharge. Mucous membranes pink and moist. NECK: Trachea midline. No JVD. CARDIOVASCULAR: Regular rate and rhythm. No murmur appreciated. RESPIRATORY: No accessory muscle use. Clear to auscultation. Breath sounds equal bilaterally. GASTROINTESTINAL: Abdomen soft, non-tender, nondistended. No rebound tenderness or guarding. MUSCULOSKELETAL: No obvious deformities. No clubbing. No cyanosis. No edema. NEUROLOGICAL: Awake and alert. No obvious cranial nerve deficits. Motor grossly within normal limits. Developmental delay. Moves all extremities to command. Does not seem to understand and my questions completely. PSYCHIATRIC: Inappropriate mood and affect; poor insight and judgment. Data Data Last Documented VS Vital Signs Date Time Temp Pulse Resp B/P Pulse Ox O2 Delivery O2 Flow Rate FiO2 10/13/16 18:00 97.9 86 24 155/84 97 Room Air Orders Complete Blood Count With Diff (10/13/16 20:21) Comprehensive Metabolic Panel (10/13/16 20:21) Psych Screen (10/13/16 20:21) Drug Screen, Random Urine (10/13/16 20:21) Alcohol (Ethanol) (10/13/16 20:21) Labs Laboratory Tests Test 10/13/16 20:50 White Blood Count 7.3 TH/MM3 Red Blood Count 5.33 MIL/MM3 Hemoglobin 15.2 GM/DL Hematocrit 44.4 % Mean Corpuscular Volume 83.4 FL Mean Corpuscular Hemoglobin 28.5 PG Mean Corpuscular Hemoglobin 34.2 % Concent Red Cell Distribution Width 13.4 % Platelet Count 351 TH/MM3 Mean Platelet Volume 8.3 FL Neutrophils (%) (Auto) 70.3 % Lymphocytes (%) (Auto) 22.8 % Monocytes (%) (Auto) 5.9 % Eosinophils (%) (Auto) 0.4 % Basophils (%) (Auto) 0.6 % Neutrophils # (Auto) 5.1 TH/MM3 Lymphocytes # (Auto) 1.7 TH/MM3 Monocytes # (Auto) 0.4 TH/MM3 Eosinophils # (Auto) 0.0 TH/MM3 Basophils # (Auto) 0.0 TH/MM3 CBC Comment DIFF FINAL Differential Comment Sodium Level 141 MEQ/L Potassium Level 3.6 MEQ/L Chloride Level 105 MEQ/L Carbon Dioxide Level 29.8 MEQ/L Anion Gap 6 MEQ/L Blood Urea Nitrogen 12 MG/DL Creatinine 0.97 MG/DL Estimat Glomerular Filtration 86 ML/MIN Rate Random Glucose 89 MG/DL Calcium Level 9.4 MG/DL Total Bilirubin 0.3 MG/DL Aspartate Amino Transf 14 U/L (AST/SGOT) Alanine Aminotransferase 26 U/L (ALT/SGPT) Alkaline Phosphatase 70 U/L Total Protein 8.1 GM/DL Albumin 4.5 GM/DL Ethyl Alcohol Level LESS THAN 3 MG/DL MDM Medical Decision Making Medical Screen Exam Complete: Yes Emergency Medical Condition: Yes Differential Diagnosis Adjustment disorder vs. worsening autism vs. delirium vs. electrolyte abnormality Narrative Course 41yo M with adjustment disorder here because of increasing odd behavior as per mother. Labs reviewed, no leukocytosis. CMP unremarkable. Alcohol negative. VS stable. Pt is medically clear for psych evaluation. Diagnosis Primary Impression: Adjustment disorder with mixed disturbance of emotions and conduct Emi Hightower DO October 13, 2016 20:54
[2016-10-13] MEDS ORDERED: QUET1TAB8 PO (20:56)
[2016-10-13] MEDS ORDERED: ZIPR1CAP8 PO (20:56)
[2016-10-13 21:19] LABS: AUTOMATED NEUTROPHIL # 5.1 TH/MM3 (1.8-7.7); BASOPHIL % 0.6 % (0.0-2.0); EOSINOPHIL % 0.4 % (0.0-4.0); HEMATOCRIT 44.4 % (39.0-51.0); HEMO FLAGS DIFF FINAL; LYMPH % 22.8 % (9.0-44.0); LYMPHOCYTE # 1.7 TH/MM3 (1.0-4.8); MEAN CELL VOLUME 83.4 FL (80.0-100.0); MEAN CORPUSCULAR HEMOGLOBIN 28.5 PG (27.0-34.0); MEAN CORPUSCULAR HGB CONC 34.2 % (32.0-36.0); MONO % 5.9 % (0.0-8.0); NEUT % 70.3 % (16.0-70.0); PLATELET COUNT 351 TH/MM3 (150-450); RED BLOOD COUNT 5.33 MIL/MM3 (4.50-5.90); RED CELL DISTRIBUTION WIDTH 13.4 % (11.6-17.2); WHITE BLOOD COUNT 7.3 TH/MM3 (4.0-11.0)
[2016-10-13 22:05] LABS: ALKALINE PHOSPHATASE 70 U/L (45-117); ALT (GPT) 26 U/L (12-78); ANION GAP 6 MEQ/L (5-15); AST (GOT) 14 U/L (15-37); BICARBONATE 29.8 MEQ/L (21.0-32.0); BLOOD UREA NITROGEN 12 MG/DL (7-18); CHLORIDE 105 MEQ/L (98-107); GLOMERULAR FILTRATION RATE 86 ML/MIN (>89); POTASSIUM 3.6 MEQ/L (3.5-5.1); SODIUM (NA) 141 MEQ/L (136-145); TOTAL BILIRUBIN ADULT 0.3 MG/DL (0.2-1.0)
[2016-10-14] MEDS ORDERED: diphenhydrAMINE HCL 50 MG/ML VIAL IM ONE (03:15)
[2016-10-14 05:17] VITALS: BP 130/67; PULSE 84; RESP 15; O2SAT 98
[2016-10-14 07:27] VITALS: BP 105/57; PULSE 94; RESP 15; TEMP 97.6; O2SAT 96
[2016-10-14] MEDS ORDERED: MAGNESIUM HYDROXIDE SUSP 30 ML CUP PO PRN (11:15)
[2016-10-14] MEDS ORDERED: ACETAMINOPHEN 325 MG TAB PO PRN (11:15)
[2016-10-14] MEDS ORDERED: LORazepam 0.5 MG TAB PO PRN (11:15)
[2016-10-14] MEDS ORDERED: ALUMINUM/MAGNESIUM/SIMETH 30 ML CUP PO PRN (11:15)
[2016-10-14] MEDS ORDERED: diphenhydrAMINE HCL 50 MG/ML VIAL IM PRN (11:15)
[2016-10-14] MEDS ORDERED: LORazepam 2 MG/ML VIAL IM PRN ×2 (11:15)
--- NOTE | 2016-10-14 11:20 | HHI.HP ---
Provisional Diagnosis Admission Date [place] I. Brief psychotic disorder. Certification of Person's Competence To Provide Express and Informed Consent I have personally examined Anders Butts , a person being served at [facility] on, Oct 14, 2016 11:14. Express and informed consent means consent voluntarily given in writing, by a competent person, after sufficient explanation and disclosure of the subject matter involved to enable the person to make a knowing and willful decision without any element of force, fraud, deceit, duress, or other form of constraint or coercion. This person is 18 years of age or older, is not now known to be incompetent to consent to treatment with a guardian advocate, and does not have a health care surrogate or proxy currently making medical treatment decisions. I have found this person to be one of the following: [] Competent to provide express and informed consent, as defined above, for voluntary admission to this facility and is competent to provide express and informed consent for treatment. He/she has the consistent capacity to make well reasoned, willful, and knowing decisions concerning his or her medical or mental health treatment. The person fully and consistently understands the purpose of the admission for examination/placement and is fully capable of personally exercising all rights assured [place] [X] Incompetent to provide express and informed consent to voluntary admission, and this is incompetent to provide express and informed consent to treatment. The person must be transferred to involuntary status and a petition for a guardian advocate filed with the Circuit Court. [] Refusing to provide express and informed consent to voluntary admission but is competent to provide express and informed consent for treatment. The person must be discharged or transferred to involuntary status. Form shall be completed within 24 hours of a person's arrival at the receiving facility and filed in the clinical record of each person: 1. Admitted on a voluntary basis 2. Permitted to provide express and informed consent to his/her own treatment 3. Allowed to transfer from involuntary to voluntary status 4. Prior to permitting a person to consent to his or her own treatment after having been previously found incompetent to consent to treatment. History of Present Illness Capacity: Lacks Capacity HPI This is a 41-year-old male, well known to this physician from years of outpatient treatment, currently presenting to the emergency department with civil commitment for dangerous behavior to self. The patient is highly emotional and easily agitated at this time. He is speaking in nonsensical terms. This physician spoke with the patient's mother and learned last evening he crammed as many candy in his mouth as possible and when she tried to get him to spit them out because he was choking he then took various coins and try to stop them in his mouth as well. Patient is currently a very poor historian and unable to follow directions or speak intelligently. This is not the patient's baseline as this physician has known the patient for years. Patient's mother is unable to care for him and his outpatient treatment with Dr. crawford has not stabilized his mood, thinking or behavior. Dr. crawford did recently change his medicines and add Geodon 40 mg twice a day but this has not helped and may have made him worse. In the past, Seroquel has at times improved his condition. The patient is currently at very high risk to harm himself. This physician also spoke with the patient's mother, indicating she does not have the capability of caring for the patient in the future and therefore she is willing to have him placed in some type of adult senior care. Review of Systems Except as stated in HPI: all other systems reviewed are Neg Past Psych History Psychological trauma history Uncertain evidence of previous psychological trauma. Patient has been admitted to adult psychiatry at [facility] previously. He is currently being treated as an outpatient at [facility]. Violence risk - others (6 mos) Moderate Violence risk - self (6 mos) Severe Substance Abuse History Drugs/Alcohol past 12 months Denied Past Family Social History Coded Allergies: Risperidone (Verified Allergy, Severe, "CAN'T MOVE", 10/13/16) Abilify (Verified Allergy, Intermediate, 10/13/16) Uncoded Allergies: abilify maintena (Adverse Reaction, Severe, 06/24/16) Active Scripts Ziprasidone (Geodon)40 Mg Cap40 Mg PO BID #60 CAP Ref 0 Prov:Thomas Crawford MD 10/12/16 Reported Medications Quetiapine 100 Mg Nex370 Mg PO BID #60 TAB Ref 0 10/13/16 Ziprasidone 40 Mg Cap40 Mg PO BID #60 CAP Ref 0 10/13/16 Discontinued Reported Medications Ziprasidone (Geodon)40 Mg Cap40 Mg PO BID #60 CAP Ref 0 10/12/16 Family History Patient has a brother with "special needs". Social History Patient lives with his 70-year-old mother. He occasionally works at a grocery store and try to do so in the last several days. He was unable to function. He does not use alcohol or drugs. He does receive Social Security disability. Patient's Strengths (min. 2) Resilient and has access to healthcare. Physical Exam GENERAL: SKIN: Warm and dry. HEAD: Normocephalic. EYES: No scleral icterus. No injection or drainage. NECK: Supple, trachea midline. No JVD or lymphadenopathy. CARDIOVASCULAR: Regular rate and rhythm without murmurs, gallops, or rubs. RESPIRATORY: Breath sounds equal bilaterally. No accessory muscle use. GASTROINTESTINAL: Abdomen soft, non-tender, nondistended. MUSCULOSKELETAL: No cyanosis, or edema. BACK: Nontender without obvious deformity. No CVA tenderness. Vital Signs Vital Signs Date Time Temp Pulse Resp B/P Pulse Ox O2 Delivery O2 Flow Rate FiO2 10/14/16 07:27 97.6 94 15 105/57 96 Room Air Mental Status Examination Speech: Incoherent Orientation: Person Memory: Impaired (describe) Thought Process: Organized, Other Thought Content: Bizarre thinking Hallucination Type: None Attention and Concentration: Easily Distracted Suicidal Ideation: No Previous Suicide Attempts: Yes Homicidal Ideation: No Previous Homicide Attempts: No Insight: Poor Judgment: Poor Affect: Anxious Affect if Inappropriate: Labile Mood: Anxious Motor Activity: Abnormal gait-specify Assessment & Plan Problem List: (1) Brief psychotic disorder ICD Code: F23 Assessment & Plan Estimated LOS: 7 days this is a 41-year-old male who is well known to this physician, currently decompensated to a state of psychosis and high risk self- harm behavior. Additionally, the patient has been historically very difficult to treat, including a severe reaction to Abilify which led to rhabdomyolysis and a decompensation of his cognitive function. He has recently been treated with Seroquel and Geodon. These medicines have not worked adequately and may have again made him worse, particularly the Geodon. At times, the Seroquel was helpful in the past and therefore it was continued upon this admission. The patient is also being evaluated for thyroid function, comprehensive metabolic profile and EKG. This physician remains highly concerned that the psychotropic medicines used to treat the patient may cause adverse reactions which are as dangerous as he has experienced in the past. Therefore we will ensure his cardiac conduction is satisfactory and that we are not doing anything to bring about neuroleptic malignant syndrome, some blood dyscrasia, or other serious side effects. This physician spoke to the patient's mother at length. She provided added history of his recent behavior. This physician spoke with the nurse regarding his dangerousness and inability to comply in the emergency department. This physician has ordered a second opinion from a psychiatrist because the patient is not apparently competent to provide consent. This physician is also asking the registered nurse hh case manager to get involved in placement decision making. John Maier MD Oct 14, 2016 11:20
[2016-10-14] MEDS: LORazepam 1 MG TAB PO PRN (11:34)
[2016-10-14 11:38] VITALS: BP 115/71; PULSE 90; RESP 15; TEMP 97.6; O2SAT 96
[2016-10-14 13:06] VITALS: BP 108/51; PULSE 91; RESP 18; TEMP 98.3; O2SAT 97
[2016-10-14 15:28] VITALS: BP 112/76; PULSE 94; RESP 16; TEMP 96.8; O2SAT 97
[2016-10-14] MEDS: diphenhydrAMINE HCL 50 MG CAP PO PRN (20:21)
[2016-10-14] MEDS: traZODone HCL 50 MG TAB PO PRN (20:21)
[2016-10-14] MEDS: QUEtiapine FUMARATE 100 MG TAB PO SCH (20:21)
[2016-10-15 05:56] VITALS: BP 115/57; PULSE 75; RESP 18; TEMP 97.9; O2SAT 98
[2016-10-15] MEDS: QUEtiapine FUMARATE 100 MG TAB PO SCH ×2 (09:14→20:28)
--- NOTE | 2016-10-15 09:45 | PD.CONS ---
Provisional Diagnosis Admission Date Oct 14, 2016 at 11:11 [place] I. 1. Intermittent explosive disorder 2. Generalized anxiety disorder 3. Autism spectrum disorder [place] II. Deferred [place] V. GAF is 35 presently History of Present Illness Service Psychiatry Consult Requested By Dr. Maier Reason for Consult Second opinion for involuntary psychiatric hospitalization Primary Care Physician No Primary Care Physician HPI From Dr. Maier's H&P: This is a 41-year-old male, well known to this physician from years of outpatient treatment, currently presenting to the emergency department with civil commitment for dangerous behavior to self. The patient is highly emotional and easily agitated at this time. He is speaking in nonsensical terms. This physician spoke with the patient's mother and learned last evening he crammed as many candy in his mouth as possible and when she tried to get him to spit them out because he was choking he then took various coins and try to stop them in his mouth as well. Patient is currently a very poor historian and unable to follow directions or speak intelligently. This is not the patient's baseline as this physician has known the patient for years. Patient's mother is unable to care for him and his outpatient treatment with Dr. crawford has not stabilized his mood, thinking or behavior. Dr. crawford did recently change his medicines and add Geodon 40 mg twice a day but this has not helped and may have made him worse. In the past, Seroquel has at times improved his condition. The patient is currently at very high risk to harm himself. This physician also spoke with the patient's mother, indicating she does not have the capability of caring for the patient in the future and therefore she is willing to have him placed in some type of adult skilled nursing. On my examination today: Patient seen and examined with counselor and nurse. Chart reviewed. I note that the patient saw his outpatient psychiatrist, Dr. Crawford, most recently on with diagnoses of IED, SHAKIRA, and ASD. Case discussed with nursing staff who reports that the patient was quite agitated on initial arrival on the unit but subsequently calmed down. On my examination today, the patient presents as quite childlike. Possibly some degree of intellectual disability. He repeats phrases like "7:30 or 8:00" which is when his mother is reportedly coming to visit. Inappropriate answers to questions, e.g. when I ask about AVH, he says, "I do see a doctor." Thought process somewhat disorganized. Patient cannot say whether he is experiencing SI/HI and seems unreliable to contract for safety in any event (and also see family history, below). Affect is generally euthymic, and I can elicit no depressive or hypomanic/manic symptoms. No chi delusions. Psychiatric interview somewhat limited, I suspect in large part because of patient's PDD. Patient denies side effects from medications and says that the Seroquel "tastes okay." Complains of some mild chronic back pain. Past psychiatric history: Patient has a history of IED, SHAKIRA and autism spectrum disorder. He follows with Dr. Crawford. When I inquire about prior admissions he says "I do clean my teeth sometimes." When I inquire about suicide attempts he says "one time, I hurt my pinky." Reviewing the electronic medical record, I note the patient was admitted most recently in July of this year under Dr. Lassiter. Family history: The patient does not seem to understand the question and says " I do hurt myself once in a while. I ride horses. Jackeline [apparently the name of his horse]." Chemical dependency history: The patient reports "I only eat coffee. I don't eat beer. I don't smoke either, that'll kill you." Social history: Patient reports that he lives with his mother and sometimes his brother Reinaldo. He is high school educated. He works at [employer]. He has a pet dog. Review of Systems ROS Limitations: Poor Historian Except as stated in HPI: all other systems reviewed are Neg Past Family Social History Coded Allergies: Risperidone (Verified Allergy, Severe, "CAN'T MOVE", 10/13/16) Abilify (Verified Allergy, Intermediate, 10/13/16) Uncoded Allergies: abilify maintena (Adverse Reaction, Severe, 06/24/16) Past Medical History See electronic medical record Reported Medications Quetiapine 100 Mg Tnh658 Mg PO BID #60 TAB Ref 0 10/13/16 Ziprasidone 40 Mg Cap40 Mg PO BID #60 CAP Ref 0 10/13/16 Discontinued Reported Medications Ziprasidone (Geodon)40 Mg Cap40 Mg PO BID #60 CAP Ref 0 10/12/16 Current Medications Medications (Trade) Dose Ordered Sig/Ilda Route Start Time Stop Time Status Last Admin (Ativan) 1 mg Q6H PRN PO 10/14/16 11:15 10/14/16 11:34 (Ativan Inj) 1 mg Q6H PRN IM 10/14/16 11:15 (Benadryl) 50 mg Q6H PRN PO 10/14/16 11:15 10/14/16 20:21 (Benadryl Inj) 50 mg Q6H PRN IM 10/14/16 11:15 (Tylenol) 650 mg Q4H PRN PO 10/14/16 11:15 (Milk Of Magnesia Liq) 30 ml DAILY PRN PO 10/14/16 11:15 (Mag-Al Plus Susp Liq) 30 ml Q6H PRN PO 10/14/16 11:15 (Desyrel) 50 mg HS PRN PO 10/14/16 11:15 10/14/16 20:21 (SEROquel) 100 mg BID PO 10/14/16 21:00 10/15/16 09:14 Family History See above Social History See above Patient's Strengths (min. 2) In monitored setting. Verbally fluent. Physical Exam Physical examination completed in the ED by ED provider. On my examination today, the patient appears to be in no acute physical distress. No motor abnormalities noted. Laboratories and vital signs reviewed: Vital Signs Vital Signs Date Time Temp Pulse Resp B/P Pulse Ox O2 Delivery O2 Flow Rate FiO2 10/15/16 05:56 97.9 75 18 115/57 98 10/14/16 11:38 Room Air Lab Results Item Value Date Time White Blood Count 5.8 TH/MM3 10/15/16957 Hemoglobin 15.1 GM/DL 10/15/16957 Platelet Count 309 TH/MM3 10/15/16957 Sodium Level 141 MEQ/L 10/13/162049 Potassium Level 3.6 MEQ/L 10/13/162049 Chloride Level 105 MEQ/L 10/13/162049 Carbon Dioxide Level 29.8 MEQ/L 10/13/162049 Blood Urea Nitrogen 12 MG/DL 10/13/162049 Estimat Glomerular Filtration Rate 86 ML/MIN L 10/13/162049 Creatinine 0.97 MG/DL 10/13/162049 Aspartate Amino Transf (AST/SGOT) 14 U/L L 10/13/162049 Alanine Aminotransferase (ALT/SGPT) 26 U/L 10/13/162049 Total Protein 8.1 GM/DL 10/13/162049 Alkaline Phosphatase 70 U/L 10/13/162049 Ethyl Alcohol Level LESS THAN 3 MG/DL 10/13/162049 EKG reveals sinus rhythm with a QTC of 401 ms. Mental Status Examination Patient is in hospital gown. He is somewhat disheveled but appears to be maintaining basic hygiene. He is awake and alert and oriented to person and hospital. No abnormal motor movements noted. Speech is within normal limits for rate, tone and volume. Language and fund of knowledge seems somewhat reduced for age. Memory seems fairly intact on clinical exam. Mood is good and affect is euthymic and childlike. Thought process circumstantial, at times tangential. Associations somewhat loose. No chi delusions. No audiovisual hallucinations. No active suicidal or homicidal ideation, but the patient seems unreliable to contract for safety. Insight and judgment are poor. Assessment & Plan Problem List: (1) Intermittent explosive disorder ICD Code: F63.81 (2) SHAKIRA (generalized anxiety disorder) ICD Code: F41.1 (3) Autism spectrum disorder ICD Code: F84.0 Assessment & Plan Given the circumstances of patient's presentation here and his presentation on my examination today, I concur with Dr. Maier that the patient meets criteria for involuntary psychiatric hospitalization under the [place] act. I have completed the second opinion paperwork. I will be assuming primary care of this patient. I will titrate his Seroquel to 150 mg twice daily for the management of symptoms associated with his psychiatric diagnoses. Continue to monitor on the high acuity unit. Continue other medications and care as ordered. Discharge Planning Per documentation from Dr. Maier, patient's mother desires the patient to be placed. I have asked the counselor to explore whether the patient has an APD guardian as this would be needed for skilled nursing placement. Assisted living placement represents an alternative. Request HC Surrog/Guard Advoc?: Yes Bobo Kirk MD Oct 15, 2016 09:44
[2016-10-15 10:15] LABS: AUTOMATED NEUTROPHIL # 3.7 TH/MM3 (1.8-7.7); BASOPHIL % 0.4 % (0.0-2.0); EOSINOPHIL % 0.8 % (0.0-4.0); HEMATOCRIT 43.8 % (39.0-51.0); HEMO FLAGS DIFF FINAL; LYMPH % 28.9 % (9.0-44.0); LYMPHOCYTE # 1.7 TH/MM3 (1.0-4.8); MEAN CELL VOLUME 83.5 FL (80.0-100.0); MEAN CORPUSCULAR HEMOGLOBIN 28.8 PG (27.0-34.0); MEAN CORPUSCULAR HGB CONC 34.5 % (32.0-36.0); MONO % 5.9 % (0.0-8.0); PLATELET COUNT 309 TH/MM3 (150-450); RED BLOOD COUNT 5.24 MIL/MM3 (4.50-5.90); RED CELL DISTRIBUTION WIDTH 13.2 % (11.6-17.2); WHITE BLOOD COUNT 5.8 TH/MM3 (4.0-11.0)
[2016-10-15] MEDS ORDERED: PILL SPLITTER OTHER PRN (11:15)
--- NOTE | 2016-10-15 12:23 | EKG ---
Date Performed: 10/14/2016 Time Performed: 11:23:22 PTAGE: 41 years EKG: Sinus rhythm INCOMPLETE RIGHT BUNDLE BRANCH BLOCK BORDERLINE ECG Compared to prior tracing no significant change PREVIOUS TRACING : 04/12/2016 22.06 DOCTOR: Anival Ledbetter Interpretating Date/Time 10/15/2016 12:20:02
[2016-10-15 15:30] VITALS: BP 98/64; PULSE 94; RESP 18; TEMP 97.7; O2SAT 96
[2016-10-15 17:53] LABS: HEMOGLOBIN A1b 1.6 %; HEMOGLOBIN LA1C 1.9 %; HEMOGLOBIN P3 3.5 %
[2016-10-15] MEDS: diphenhydrAMINE HCL 50 MG CAP PO PRN (20:28)
[2016-10-16 06:00] VITALS: BP 116/59; PULSE 88; RESP 18; TEMP 97.5; O2SAT 98
[2016-10-16] MEDS: QUEtiapine FUMARATE 100 MG TAB PO SCH ×2 (08:14→21:36)
[2016-10-16 09:55] LABS: ALKALINE PHOSPHATASE 67 U/L (45-117); ALT (GPT) 19 U/L (12-78); ANION GAP 8 MEQ/L (5-15); AST (GOT) 8 U/L (15-37); BICARBONATE 28.6 MEQ/L (21.0-32.0); BLOOD UREA NITROGEN 11 MG/DL (7-18); CHLORIDE 105 MEQ/L (98-107); GLOMERULAR FILTRATION RATE 86 ML/MIN (>89); LDL CHOLESTEROL 81 MG/DL (0-99); POTASSIUM 3.9 MEQ/L (3.5-5.1); SODIUM (NA) 142 MEQ/L (136-145); TOTAL BILIRUBIN ADULT 0.2 MG/DL (0.2-1.0)
--- NOTE | 2016-10-16 12:04 | HHI.PYPN ---
Subjective Remarks Pt seen and discussed with staff. Staff reports that pt has been calm and cooperative on unit. He is tolerating seroquel without side effects. No dystonia or EPS. Appetite improved. Objective Alert: Yes [place]: Person, Place Mood: Calm Affect: Restricted Memory Intact: Comment (difficult to assess) Hallucinations: Other (does not appear internally sitmulated) Delusions: No Delusion Type: Other (none) Suicidal: Ideation (none) Homicidal: Ideation (none) Insight/Judgment limited Labs Test 10/16/16 08:45 Sodium Level 142 MEQ/L Potassium Level 3.9 MEQ/L Chloride Level 105 MEQ/L Carbon Dioxide Level 28.6 MEQ/L Anion Gap 8 MEQ/L Blood Urea Nitrogen 11 MG/DL Creatinine 0.97 MG/DL Estimat Glomerular Filtration 86 ML/MIN Rate Random Glucose 107 MG/DL Calcium Level 8.5 MG/DL Total Bilirubin 0.2 MG/DL Aspartate Amino Transf 8 U/L (AST/SGOT) Alanine Aminotransferase 19 U/L (ALT/SGPT) Alkaline Phosphatase 67 U/L Total Protein 6.7 GM/DL Albumin 3.6 GM/DL Triglycerides Level 89 MG/DL Cholesterol Level 154 MG/DL LDL Cholesterol 81 MG/DL HDL Cholesterol 55.0 MG/DL Cholesterol/HDL Ratio 2.80 RATIO Thyroid Stimulating Hormone 0.761 uIU/ML 3rd Gen Vitals/IOs Vital Signs Date Time Temp Pulse Resp B/P Pulse Ox O2 Delivery O2 Flow Rate FiO2 10/16/16 06:00 97.5 88 18 116/59 98 10/14/16 11:38 Room Air Assessment & Plan Problem List: (1) Intermittent explosive disorder ICD Code: F63.81 (2) SHAKIRA (generalized anxiety disorder) ICD Code: F41.1 (3) Autism spectrum disorder ICD Code: F84.0 Assessment & Plan Continue current tx plan. Pt improving Estimated LOS: days Justification for Cont. Inpt. risk of decompensation Request HC Surrog/Guard Advoc?: Yes Kina Esposito MD Oct 16, 2016 12:04
[2016-10-16 15:20] VITALS: BP 112/59; PULSE 82; RESP 18; TEMP 97.9; O2SAT 97
[2016-10-16] MEDS: diphenhydrAMINE HCL 50 MG CAP PO PRN (21:40)
[2016-10-16] MEDS: traZODone HCL 50 MG TAB PO PRN (21:40)
[2016-10-17 06:04] VITALS: BP 111/61; PULSE 89; RESP 16; TEMP 96.9; O2SAT 95
[2016-10-17] MEDS: QUEtiapine FUMARATE 100 MG TAB PO SCH ×2 (08:50→21:00)
[2016-10-17 10:09] LABS: HEMOGLOBIN A1a 0.9 %; HEMOGLOBIN A1b 1.6 %; HEMOGLOBIN P3 3.5 %
--- NOTE | 2016-10-17 14:51 | HHI.PYPN ---
Subjective Remarks Pt seen and discussed with staff. He is compliant with treatment and has been cooperative. Pt denies any pain or discomfort. No EPS. No behavioral problems on unit. Objective Alert: Yes [place]: Person, Place Mood: Calm Affect: Restricted Memory Intact: Comment (difficult to assess) Hallucinations: Other (does not appear internally sitmulated) Delusions: No Delusion Type: Other (none) Suicidal: Ideation (none) Homicidal: Ideation (none) Insight/Judgment poor Vitals/IOs Vital Signs Date Time Temp Pulse Resp B/P Pulse Ox O2 Delivery O2 Flow Rate FiO2 10/17/16 06:04 96.9 89 16 111/61 95 10/14/16 11:38 Room Air Assessment & Plan Problem List: (1) Intermittent explosive disorder ICD Code: F63.81 (2) SHAKIRA (generalized anxiety disorder) ICD Code: F41.1 (3) Autism spectrum disorder ICD Code: F84.0 Assessment & Plan Continue current tx plan. Estimated LOS: days Justification for Cont. Inpt. risk of decompensation Request HC Surrog/Guard Advoc?: Yes Kina Esposito MD Oct 17, 2016 14:51
[2016-10-17 19:27] VITALS: BP 122/68; PULSE 78; TEMP 97.9; O2SAT 99
[2016-10-18 05:56] VITALS: BP 110/62; PULSE 71; RESP 18; TEMP 97.1; O2SAT 98
[2016-10-18] MEDS: QUEtiapine FUMARATE 100 MG TAB PO SCH (09:00)
--- NOTE | 2016-10-18 13:09 | HHI.PYPN ---
Subjective Remarks Patient seen and examined with counselor and nurse. Chart reviewed. Case discussed with nursing staff reports the patient has been cooperative and polite on the unit. On my examination today, the patient is discharged focused. He would like to go home so that he can go back to work. No SI or HI. No side effects from medications. No physical complaints. Spoke with patient's mother (EDGAR) over the phone, spending ~27min in consultation. She believes patient has had a negative response to antipsychotics, especially since an adverse reaction to Abilify last Fall. She believes these agents, even the non-sedating ones, make him more confused and make it more difficult for him to focus at his job at [employer]. She believes he has done the best on just a PRN benzodiazepine for anxiety. She believes that patient's primary issue is more to do with anxiety/worry and notes that the bulk of his psychiatric symptoms are in this vein. She reports that the presenting behavior of putting candies/coins in his mouth is rare, and she does not suspect that this was suicidal behavior. She would like to explore a medication regimen that avoids antipsychotics. I have a lengthy discussion with mother regarding the risks and benefits of an antipsychotic-sparing strategy, highlighting the risk for significant behavioral deterioration off of these agents. I discuss use of SSRIs for management of anxiety and discuss the risks and benefits of this strategy as well. We settle on discontinuing patient 's Seroquel, monitoring for a few days on the inpatient unit with just PRN Ativan/Benadryl, and considering adding an SSRI at that time. She would like to have the patient home at the conclusion of this admission and does not presently want him placed. She thanks me for the call. Review of Systems ROS Limitations: Poor Historian Except as stated in HPI: all other systems reviewed are Neg Objective Alert: Yes [place]: Person, Place Mood: Calm Affect: Blunted (childlike) Memory Intact: Comment (Not formally assessed today) Hallucinations: Other (Denies AVH) Delusions: No Delusion Type: Other (No delusions) Suicidal: Ideation (Denies SI) Homicidal: Ideation (Denies HI) Insight/Judgment Poor, chronically so. Remarks No motor abnormalities noted. Thought process perseverative on discharge. Grooming and hygiene fair. Labs Labs reviewed. Vitals/IOs Vital Signs Date Time Temp Pulse Resp B/P Pulse Ox O2 Delivery O2 Flow Rate FiO2 10/18/16 05:56 97.1 71 18 110/62 98 10/14/16 11:38 Room Air Assessment & Plan Problem List: (1) Intermittent explosive disorder ICD Code: F63.81 (2) SHAKIRA (generalized anxiety disorder) ICD Code: F41.1 (3) Autism spectrum disorder ICD Code: F84.0 Assessment & Plan Discontinue Seroquel. Continue Ativan as needed for anxiety. To consider initiating an SSRI. Continue monitoring on the high acuity unit. Continue other medications and care as ordered. Justification for Cont. Inpt. Medication changes in process. Risk for decompensation in a less restrictive environment. Discharge Planning Pending outcome of further observation and medication changes. Request HC Surrog/Guard Advoc?: Yes Bobo Kirk MD Oct 18, 2016 13:08
[2016-10-18] MEDS: LORazepam 1 MG TAB PO PRN (16:47)
[2016-10-18 18:32] VITALS: BP 131/56; PULSE 100; RESP 18; TEMP 97.9; O2SAT 98
[2016-10-19 06:00] VITALS: BP 125/59; PULSE 75; RESP 18; TEMP 97.5
--- NOTE | 2016-10-19 09:28 | HHI.PYPN ---
Subjective Remarks Patient seen and examined. Chart reviewed. Case discussed with counselor, nurse and occupational therapist in treatment team. No evidence of behavioral deterioration off of antipsychotics, per RN. Patient was reportedly complaining of AH. On my examination today, patient complains of "noise" that is "all the time and says 'go home' that's all it says." In context it seems more likely that this represents reification of patient's wish for discharge than AH per se. He denies SI noting, "I don't wanna hurt myself, I don't wanna cry." Says that he wants to be released to go to school and work. Affect quite childlike. No physical complaints or side effects from medications. Review of Systems ROS Limitations: Poor Historian Objective Alert: Yes [place]: Person, Place Mood: Calm Affect: Blunted (remains quite childlike) Memory Intact: Comment (Not formally assessed today) Hallucinations: Other (As above) Delusions: No Delusion Type: Other (No chi delusional material) Suicidal: Ideation (Denies SI) Homicidal: Ideation (No HI) Insight/Judgment poor Remarks No motor abnormalities noted. Grooming and hygiene fair. Labs Labs reviewed. Vitals/IOs Vital Signs Date Time Temp Pulse Resp B/P Pulse Ox O2 Delivery O2 Flow Rate FiO2 10/19/16 06:00 97.5 75 18 125/59 10/18/16 18:32 98 Assessment & Plan Problem List: (1) Intermittent explosive disorder ICD Code: F63.81 (2) SHAKIRA (generalized anxiety disorder) ICD Code: F41.1 (3) Autism spectrum disorder ICD Code: F84.0 Assessment & Plan Continue to monitor off of antipsychotics. As noted above, I do not suspect that the patient is experiencing goran damion auditory hallucinations. Patient does not presently appear to be responding to internal stimuli. Continue to monitor on the inpatient unit. Continue other medications and care as ordered. Justification for Cont. Inpt. Risk for decompensation in a less restrictive environment. Observing for impairments in safety. Discharge Planning Monitor overnight. Consider further medication adjustments tomorrow including possible introduction of an SSRI or reintroduction of an antipsychotic. Request HC Surrog/Guard Advoc?: Yes Bobo Kirk MD Oct 19, 2016 09:27
--- NOTE | 2016-10-19 14:58 | PD.TTN ---
Present for Treatment Team Treatment Team Staff: Provider (Dr. Kirk), Nurse (Taylor Hrerera, CARISSA), Psych Therapist (VERA Betancourt), Occupational Therapist (KATIA Ross) Patient Problems 1. Discharge planning 2. Medication compliance 3. Knowledge deficit 4. Lack of coping skills Progress Toward Goals Provider Input: Medication changes will continue to be made in order to attempt to achieve further stabilization. Nurse Input: Pt appears childlike, cooperative, confused, repetitive and compliant with medication regiment. He displays no aggression or agitation and cooperates with unit expectations. Psych Therapist Input: Pt appears distressed today and reports that he is "not well" due to auditory hallucinations. Pt appears disorganized, confused and struggles to remain on topic. He denies any suicidal or homicidal ideation. Pt appears anxious and struggles to cope with emotional distress. Occupational Therapist Input: Pt will often attend groups but usually does not participate. He appears confused during group and often asks to go back to unit confusing this for "home". Documentation Scribe: VERA Betancourt Date Resolved: Oct 19, 2016 Bhaskar Sauer Oct 19, 2016 14:58
[2016-10-19 18:06] VITALS: BP 122/71; PULSE 106; RESP 18; TEMP 97.4; O2SAT 97
[2016-10-20 06:07] VITALS: BP 144/72; PULSE 95; RESP 18; TEMP 98.5; O2SAT 97
--- NOTE | 2016-10-20 10:03 | HHI.PYPN ---
Subjective Remarks Patient seen and examined with counselor and nurse. Chart reviewed. Case discussed with nursing staff who reports that the patient is emotionally labile and complaining of auditory hallucinations. On my examination today, the patient presents as tearful. He says "always cry." He alludes to wanting to go "to heaven all of the time. I don't want to take shots." He reports voices saying, "socks, socks, socks." No physical complaints. In light of patient's deteriorated state today, I placed a call back to patient' s mother. I think that the Seroquel that he was taking was clearly providing some therapeutic benefit. I have recommended that the patient's mother allow me to resume this medication at slightly increased dose, namely 200 mg twice daily. Patient's mother agrees that the discontinuation of the Seroquel has not been beneficial for the patient and agrees with resuming this medication now. We discussed the [place] act court briefly. We also discussed length of stay, and the patient's mother would like to have him home soon once he stabilizes, and we discussed possible discharge end of this week or beginning of next week if the patient improves with reintroduction of Seroquel and she is in agreement with this plan. Review of Systems ROS Limitations: Poor Historian Except as stated in HPI: all other systems reviewed are Neg Objective Alert: Yes [place]: Person, Place Mood: Anxious, Other (dysphoric) Affect: Tearful Memory Intact: Comment (Not assessed) Hallucinations: Auditory ("socks, socks, socks") Delusions: No Delusion Type: Other (No delusions) Suicidal: Ideation (Possibly some SI, speaks of wanting to go to heaven. No reported urge to hurt self on inpatient unit.) Homicidal: Ideation (No HI) Insight/Judgment Poor Remarks No motor abnormalities noted. Grooming and hygiene poor. Speech a little rambling. TP fairly linear. Labs Labs reviewed. Vitals/IOs Vital Signs Date Time Temp Pulse Resp B/P Pulse Ox O2 Delivery O2 Flow Rate FiO2 10/20/16 06:07 98.5 95 18 144/72 97 Assessment & Plan Problem List: (1) Intermittent explosive disorder ICD Code: F63.81 (2) SHAKIRA (generalized anxiety disorder) ICD Code: F41.1 (3) Autism spectrum disorder ICD Code: F84.0 Assessment & Plan Resume Seroquel 200mg BID. Continue to monitor on high acuity unit. Continue other medications and care as ordered. Justification for Cont. Inpt. Monitoring for impairment in safety. Med changes in process. High risk for decompensation pending psychiatric stabilization. Discharge Planning Pending stabilization. As above. Request HC Surrog/Guard Advoc?: Yes Bobo Kirk MD Oct 20, 2016 10:03
[2016-10-20] MEDS: QUEtiapine FUMARATE 200 MG TAB PO SCH ×2 (11:21→21:44)
[2016-10-20] MEDS: LORazepam 1 MG TAB PO PRN (11:21)
[2016-10-20 18:16] VITALS: BP 138/66; PULSE 80; RESP 18; TEMP 98; O2SAT 99
[2016-10-20] MEDS: diphenhydrAMINE HCL 50 MG CAP PO PRN (21:44)
[2016-10-21 06:13] VITALS: BP 110/63; PULSE 78; RESP 18; TEMP 97.9; O2SAT 78
[2016-10-21] MEDS: QUEtiapine FUMARATE 200 MG TAB PO SCH ×2 (08:20→21:21)
--- NOTE | 2016-10-21 09:53 | HHI.PYPN ---
Subjective Remarks Patient seen and examined with nurse. Chart reviewed. Case discussed with nursing staff who reports that the patient is discharged focus. This is how I find the patient today. He is significantly less labile and dysphoric than yesterday since reintroduction of the Seroquel. Affect actually seems generally fairly euthymic if somewhat childlike. Denies any suicidal or homicidal ideation. Continues to purport to hear voices saying "go home" but he says that he always hears these. No side effects from medications. No physical complaints. Review of Systems ROS Limitations: Poor Historian Except as stated in HPI: all other systems reviewed are Neg Objective Alert: Yes [place]: Person, Place Mood: Calm Affect: Euthymic Memory Intact: Comment (Not assessed) Hallucinations: Auditory ("go home") Delusions: No Delusion Type: Other (No delusions) Suicidal: Ideation (Denies SI) Homicidal: Ideation (Denies HI) Insight/Judgment Poor Remarks No motor abnormalities noted. Labs Labs reviewed. Vitals/IOs Vital Signs Date Time Temp Pulse Resp B/P Pulse Ox O2 Delivery O2 Flow Rate FiO2 10/21/16 06:13 97.9 78 18 110/63 78 Assessment & Plan Problem List: (1) Intermittent explosive disorder ICD Code: F63.81 (2) SHAKIRA (generalized anxiety disorder) ICD Code: F41.1 (3) Autism spectrum disorder ICD Code: F84.0 Assessment & Plan Continue Seroquel as ordered. Patient seems much improved with this medication back in place. To consider further titration of this medication although the patient's mood seems much more stable today and he has been no behavioral problem. Continue to monitor on the inpatient unit. Continue other medications and care as ordered. The patient's case was presented to the [place] act court and placed in continuance for 4 weeks. Mother was in attendance at [place] court. Justification for Cont. Inpt. Risk for decompensation Discharge Planning Anticipate discharge back to mother's care Tuesday or perhaps Tuesday. Request HC Surrog/Guard Advoc?: Yes Bobo Kirk MD Oct 21, 2016 09:53
[2016-10-21 15:55] VITALS: BP 117/57; PULSE 84; RESP 17; TEMP 97.8; O2SAT 97
[2016-10-21] MEDS: traZODone HCL 50 MG TAB PO PRN (21:32)
[2016-10-22 06:02] VITALS: BP 108/67; PULSE 80; RESP 16; TEMP 98.2; O2SAT 98
[2016-10-22] MEDS: QUEtiapine FUMARATE 200 MG TAB PO SCH (08:34)
--- NOTE | 2016-10-22 15:56 | HHI.PYPN ---
Subjective Remarks Patient seen and examined with counselor. Chart reviewed. Case discussed with nursing staff who reports patient continues to pace and remains somewhat anxious. On my examination today, patient is anxious and discharge focused. No psychotic symptoms. Denies SI or HI. No side effects from medications. No physical complaints. Placed call to patient's mother who requests that the patient be observed over the weekend. She is agreeable to a Tuesday discharge. I discuss using this time to titrate patient's Seroquel to target anxiety, and she is agreeable to this. Review of Systems ROS Limitations: Poor Historian Except as stated in HPI: all other systems reviewed are Neg Objective Alert: Yes [place]: Person, Place Mood: Calm Affect: Euthymic (childlike) Memory Intact: Comment (Not assessed) Hallucinations: Auditory (denies AVH) Delusions: No Delusion Type: Other (no delusional material) Suicidal: Ideation (Denies SI) Homicidal: Ideation (Denies HI) Insight/Judgment Poor Remarks No motor abnormalities noted Labs Labs reviewed Vitals/IOs Vital Signs Date Time Temp Pulse Resp B/P Pulse Ox O2 Delivery O2 Flow Rate FiO2 10/22/16 06:02 98.2 80 16 108/67 98 Assessment & Plan Problem List: (1) Intermittent explosive disorder ICD Code: F63.81 (2) SHAKIRA (generalized anxiety disorder) ICD Code: F41.1 (3) Autism spectrum disorder ICD Code: F84.0 Assessment & Plan Titrate Seroquel over the weekend to target dose of 300 mg twice daily. Continue to monitor on the inpatient unit in the meantime. Continue other medications and care as ordered. Justification for Cont. Inpt. Medication changes in process. Discharge Planning Discharge home Tuesday barring some clinical deterioration. Request HC Surrog/Guard Advoc?: Yes Bobo Kirk MD Oct 22, 2016 15:56
[2016-10-22 17:00] VITALS: BP 110/55; PULSE 86; RESP 16; TEMP 98.4; O2SAT 96
[2016-10-22] MEDS: QUEtiapine FUMARATE 100 MG TAB PO SCH (21:57)
[2016-10-22] MEDS: traZODone HCL 50 MG TAB PO PRN (21:57)
[2016-10-23 06:18] VITALS: BP 105/55; PULSE 75; RESP 17; TEMP 97.3; O2SAT 96
[2016-10-23] MEDS: QUEtiapine FUMARATE 100 MG TAB PO SCH ×2 (08:24→21:00)
--- NOTE | 2016-10-23 16:02 | HHI.PYPN ---
Subjective Remarks Patient was seen and case discussed with nursing. Patient is pleasant and cooperative with exam. Said he had a productive to our visit with his mother. Behaving well per nursing. No outbursts or labile behavior. Compliant with medications Objective Alert: Yes [place]: Person, Place Mood: Calm Affect: Euthymic (childlike) Memory Intact: Comment (Not assessed) Hallucinations: Auditory (denies AVH) Delusions: No Delusion Type: Other (no delusional material) Suicidal: Ideation (Denies SI) Homicidal: Ideation (Denies HI) Insight/Judgment Poor Vitals/IOs Vital Signs Date Time Temp Pulse Resp B/P Pulse Ox O2 Delivery O2 Flow Rate FiO2 10/23/16 06:18 97.3 75 17 105/55 96 Assessment & Plan Problem List: (1) Intermittent explosive disorder ICD Code: F63.81 (2) SHAKIRA (generalized anxiety disorder) ICD Code: F41.1 (3) Autism spectrum disorder ICD Code: F84.0 Assessment & Plan Continue current treatment plan Justification for Cont. Inpt. Patient will decompensate in a less restrictive setting Request HC Surrog/Guard Advoc?: Yes Roger Thorpe DO Oct 23, 2016 16:02
[2016-10-23 17:00] VITALS: BP 126/69; PULSE 101; RESP 18; TEMP 98.5; O2SAT 96
[2016-10-23] MEDS: traZODone HCL 50 MG TAB PO PRN (21:16)
[2016-10-24 05:59] VITALS: BP 111/67; PULSE 84; RESP 16; TEMP 97.6; O2SAT 98
[2016-10-24] MEDS: QUEtiapine FUMARATE 100 MG TAB PO SCH ×2 (08:20→21:00)
--- NOTE | 2016-10-24 16:47 | HHI.PYPN ---
Subjective Remarks Patient was seen and case discussed with nursing. Patient is compliant with medications. Has had no behavioral outbursts or agitated behavior. Compliant with medications. Getting along with others. Objective Alert: Yes [place]: Person, Place Mood: Calm Affect: Euthymic (childlike) Memory Intact: Comment (Not assessed) Hallucinations: Auditory (denies AVH) Delusions: No Delusion Type: Other (no delusional material) Suicidal: Ideation (Denies SI) Homicidal: Ideation (Denies HI) Insight/Judgment Poor Vitals/IOs Vital Signs Date Time Temp Pulse Resp B/P Pulse Ox O2 Delivery O2 Flow Rate FiO2 10/24/16 05:59 97.6 84 16 111/67 98 Assessment & Plan Problem List: (1) Intermittent explosive disorder ICD Code: F63.81 (2) SHAKIRA (generalized anxiety disorder) ICD Code: F41.1 (3) Autism spectrum disorder ICD Code: F84.0 Assessment & Plan Continue current treatment plan Justification for Cont. Inpt. Patient will decompensate in a less restrictive setting Request HC Surrog/Guard Advoc?: Yes Roger Thorpe DO Oct 24, 2016 16:47
[2016-10-24 20:06] VITALS: BP 131/73; PULSE 76; RESP 16; TEMP 98.2; O2SAT 100
[2016-10-24] MEDS: traZODone HCL 50 MG TAB PO PRN (21:31)
[2016-10-25 05:48] VITALS: BP 113/57; PULSE 87; RESP 17; TEMP 97.7; O2SAT 98
[2016-10-25] MEDS: QUEtiapine FUMARATE 100 MG TAB PO SCH (09:00)
[2016-10-25] MEDS ORDERED: SERO300T PO (09:22)
[2016-10-25] MEDS ORDERED: LORA-474 PO (09:22)
--- NOTE | 2016-10-25 09:22 | HHI.DS ---
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 The patient is highly emotional and easily agitated at this time. He is speaking in nonsensical terms. This physician spoke with the patient's mother and learned last evening he crammed as many candy in his mouth as possible and when she tried to get him to spit them out because he was choking he then took various coins and try to stop them in his mouth as well. Patient is currently a very poor historian and unable to follow directions or speak intelligently. This is not the patient's baseline as this physician has known the patient for years. Patient's mother is unable to care for him and his outpatient treatment with Dr. barnhart has not stabilized his mood, thinking or behavior. Dr. barnhart did recently change his medicines and add Geodon 40 mg twice a day but this has not helped and may have made him worse. In the past, Seroquel has at times improved his condition. The patient is currently at very high risk to harm himself. Tobacco Use In Past 30 Days: No Tobacco Past 30 Days Alcohol Use: Never Hospital Course Patient was admitted to a locked, inpatient psychiatric unit. Appropriate precautions were in place throughout patient's hospital stay. Patient was seen and examined daily on the unit by psychiatry and also visited by counselor. Medications were adjusted. Patient was trialed off of antipsychotic medications at the behest of his mother but unfortunately experienced destabilization of his mood and exacerbation of hallucinatory phenomena off of antipsychotics. Once placed back on his Seroquel and with a small dose titration, the patient had rapid return of good mood stabilization and resolution of psychotic symptoms. Patient's behavior improved with benefit of psychopharmacologic treatment. There was no evidence of any suicidality or homicidality on the inpatient unit. I have discussed the case with patient's mother who is not presently desirous of placement and wants the patient home once stable. On the day of discharge: Patient seen and examined with nurse. Chart reviewed. Case discussed with nursing staff. No behavioral issues noted. On my examination today, the patient is in good spirits. He remains eager for discharge. He denies any suicidal or homicidal ideation. Denies audiovisual hallucinations. No evidence of psychosis otherwise. No mood instability. Denies side effects from medications. No physical complaints. Weighing the acute, chronic, and protective factors and based on the available evidence, I tankroom tender to a reasonable degree of medical certainty that the patient is at low imminent risk of harm to self or others from a mental illness as defined under the [place] act and his level of function is adequate for outpatient care. There likely is a component of chronic risk related to patient 's underlying pervasive developmental disorder but this risk would not be further ameliorated by a longer inpatient psychiatric hospital stay. The patient has maximized benefit from this inpatient psychiatric hospital stay will be discharged today with psychiatric follow-up as arranged by counselor. Patient is also to follow-up with primary care. Patient to return to the psychiatric emergency room for any concerning psychiatric symptoms. Results Blood Pressure 113 / 57 Vital Signs Date Time Temp Pulse Resp B/P Pulse Ox O2 Delivery O2 Flow Rate FiO2 10/25/16 05:48 97.7 87 17 113/57 98 Item Value Date Time White Blood Count 5.8 TH/MM3 10/15/16 0958 Hemoglobin 15.1 GM/DL 10/15/16 0958 Platelet Count 309 TH/MM3 10/15/16 0958 Sodium Level 142 MEQ/L 10/16/16 0845 Potassium Level 3.9 MEQ/L 10/16/16 0845 Chloride Level 105 MEQ/L 10/16/16 0845 Carbon Dioxide Level 28.6 MEQ/L 10/16/16 0845 Blood Urea Nitrogen 11 MG/DL 10/16/16 0845 Creatinine 0.97 MG/DL 10/16/16 0845 Random Glucose 107 MG/DL H 10/16/16 0845 Hemoglobin A1c 5.4 % 10/16/16 0845 Aspartate Amino Transf (AST/SGOT) 8 U/L L 10/16/16 0845 Alanine Aminotransferase (ALT/SGPT) 19 U/L 10/16/16 0845 Alkaline Phosphatase 67 U/L 10/16/16 0845 Thyroid Stimulating Hormone 3rd Gen 0.761 uIU/ML 10/16/16 0845 Ethyl Alcohol Level LESS THAN 3 MG/DL 10/13/162049 Summary of Procedures None done Imaging None done Pending results at discharge: No Medications # of Antipsychotic meds at D/C: 1 Approp Antipsych med options 1 - Minimum of three failed multiple trials of monotherapy. 2 - Documented plan to taper to monotherapy due to previous use of multiple meds OR cross-taper in progress at D/C. 3 - Documentation of augmentation of Clozapine. 4 - Justification other than those listed in allowable values 1-3, document here : Discharge Discharge Date: Oct 25, 2016 Discharge Diagnosis: (1) Intermittent explosive disorder Diagnosis: Principal (stable) ICD Code: F63.81 (2) SHAKIRA (generalized anxiety disorder) Diagnosis: Secondary (stable) ICD Code: F41.1 (3) Autism spectrum disorder Diagnosis: Secondary (chronic) ICD Code: F84.0 GAF on discharge is 50. Mental Status Exam at Disch Patient is casually dressed. He is fairly well groomed and certainly maintaining basic hygiene. He is awake and alert and oriented to person and hospital. No evidence of delirium. No motor abnormalities noted. Speech is in normal limits for rate, tone and volume. Mood is good and affect is full and reactive if somewhat childlike. Thought process fairly linear. No loosening of associations. No delusional material. Denies audiovisual hallucinations. Denies suicidal or homicidal ideation. Insight and judgment are chronically poor. Pt Condition on Discharge: Stable Discharge Disposition: Discharge Home Discharge Instructions Diet Instructions: As Tolerated, No Restrictions Activities you can perform: Weight Bearing as Sade Scheduled Appointment: as per counselor's notes New Medications: Quetiapine (Seroquel) 300 Mg Tab 300 MG PO BID Mental Health Days 15 Ref 1 TAB Lorazepam (Ativan) 1 Mg Tab 1 MG PO Q6H PRN MODERATE TO SEVERE ANXIETY #15 Ref 1 TAB Discontinued Medications: Quetiapine (Quetiapine) 100 Mg Tab 100 MG PO BID #60 Ref 0 TAB Ziprasidone (Ziprasidone) 40 Mg Cap 40 MG PO BID #60 Ref 0 CAP Discharge Time <= 30 minutes Discharge/Advance Care Plan Health Problems: (1) Intermittent explosive disorder (2) SHAKIRA (generalized anxiety disorder) (3) Autism spectrum disorder Goals to promote your health * To prevent worsening of your condition and complications * To maintain your health at the optimal level Directions to meet your goals Take your medications as prescribed Follow your dietary instruction Follow activity as directed Keep your appointments as scheduled Take your immunizations and boosters as scheduled If your symptoms worsen call your PCP, if no PCP go to Urgent Care Center or Emergency Room For 06/12 questions related to your inpatient stay or results of tests pending at discharge, please contact Dr. Bobo Kirk at Smoking is Dangerous to Your Health. Avoid second hand smoking Bobo Kirk MD Oct 25, 2016 09:22
[2016-10-27] MEDS ORDERED: SERO300T PO ×2 (09:38→09:39)
[2016-10-27] MEDS ORDERED: LORA-474 PO (09:39)
[2016-11-12] MEDS ORDERED: SERO300T PO (11:46)
[2016-11-12] MEDS ORDERED: LORA-474 PO ×3 (11:46→11:47)
== END 2016-10-25 14:25 | disposition home or self-care (01) | DRG 883 ==
LOC: NEPD 17:58 → NEDA 10-14 11:11 → H270 10-14 12:20
PROVIDERS: ADMIT Psychiatry & Neurology Psychiatry; ATTEND Psychiatry & Neurology Psychiatry
DX: F63.81 Intermittent explosive disorder (principal); F41.1 Generalized anxiety disorder; F84.0 Autistic disorder
CPT/HCPCS: 80053; 80061; 80307; 83036; 84443; 85025; 93005; J1200; Q0163

== ENCOUNTER 2017-04-23 17:29 | Emergency (ER) | payer MEDICARE ==
[~2017-04-23] VITALS: Ht 170.2 cm; Wt 75.0 kg
[~2017-04-23 17:29] MED LIST changes: +LORA-474 PO; +SERO300T PO; -ZIPR40 PO
[2017-04-23 17:30] VITALS: BP 133/72; PULSE 125; RESP 15; TEMP 97.4; O2SAT 97
[2017-04-23] MEDS ORDERED: LORazepam 2 MG TAB PO ONE (18:15)
[2017-04-23] MEDS ORDERED: FAMOTIDINE 20 MG TAB PO ONE (18:15)
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
[2017-04-23] MEDS ORDERED: RANI150T PO (18:49)
[2017-04-23] MEDS ORDERED: QUEtiapine FUMARATE 300 MG TAB PO ONE (19:00)
[2017-04-27] MEDS ORDERED: AMBI10TA PO ×3 (08:07→12:12)
== END 2017-04-23 19:44 | disposition home or self-care (01) ==
LOC: NEPD 17:29
DX: F34.81 Disruptive mood dysregulation disorder (principal); F84.0 Autistic disorder; F43.25 Adjustment disorder with mixed disturbance of emotions and conduct
CPT/HCPCS: 99284

== ENCOUNTER 2017-04-29 17:05 | Inpatient (IN) | payer MEDICARE, OTHER ==
[~2017-04-29] VITALS: Ht 170.2 cm; Wt 76.9 kg
[~2017-04-29 17:05] MED LIST changes: +AMBI10TA PO; +RANI150T PO
[2017-04-29 17:06] VITALS: BP 141/87; PULSE 113; RESP 18; TEMP 98.2; O2SAT 99
[2017-04-29] MEDS ORDERED: HALOPERIDOL LACTATE 5 MG/ML AMP IM ONE (19:30)
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
[2017-04-29 20:58] LABS: AUTOMATED NEUTROPHIL # 2.9 TH/MM3 (1.8-7.7); BASOPHIL % 0.4 % (0.0-2.0); EOSINOPHIL # 0.2 TH/MM3 (0-0.4); EOSINOPHIL % 2.7 % (0.0-4.0); HEMATOCRIT 38.4 % (39.0-51.0); HEMO FLAGS DIFF FINAL; LYMPH % 36.7 % (9.0-44.0); LYMPHOCYTE # 2.1 TH/MM3 (1.0-4.8); MEAN CELL VOLUME 85.8 FL (80.0-100.0); MEAN CORPUSCULAR HEMOGLOBIN 29.4 PG (27.0-34.0); MEAN CORPUSCULAR HGB CONC 34.2 % (32.0-36.0); MONO % 9.8 % (0.0-8.0); NEUT % 50.4 % (16.0-70.0); PLATELET COUNT 239 TH/MM3 (150-450); RED BLOOD COUNT 4.47 MIL/MM3 (4.50-5.90); RED CELL DISTRIBUTION WIDTH 13.1 % (11.6-17.2); WHITE BLOOD COUNT 5.8 TH/MM3 (4.0-11.0)
[2017-04-29 21:12] LABS: ALT (GPT) 43 U/L (12-78); ANION GAP 9 MEQ/L (5-15); AST (GOT) 22 U/L (15-37); BICARBONATE 25.6 MEQ/L (21.0-32.0); BLOOD UREA NITROGEN 9 MG/DL (7-18); CHLORIDE 106 MEQ/L (98-107); GLOMERULAR FILTRATION RATE 77 ML/MIN (>89); POTASSIUM 3.3 MEQ/L (3.5-5.1); SODIUM (NA) 141 MEQ/L (136-145)
[2017-04-29 21:15] LABS: ALKALINE PHOSPHATASE 73 U/L (45-117); TOTAL BILIRUBIN ADULT 0.1 MG/DL (0.2-1.0)
[2017-04-29] MEDS ORDERED: MIDAZOLAM HCL 2 MG/2 ML VIAL IM ONE (22:00)
[2017-04-30 09:00] VITALS: BP 132/72; PULSE 78; RESP 20
[2017-04-30 13:00] VITALS: BP 132/70; PULSE 85; RESP 20; O2SAT 98
--- NOTE | 2017-04-30 13:11 | HHI.HP ---
Provisional Diagnosis Admission Date [place] I. Autism spectrum disorder, intermittent explosive disorder [place] II. Deferred [place] III. No significant medical history Certification of Person's Competence To Provide Express and Informed Consent I have personally examined Anders Butts , a person being served at [facility] on, Apr 30, 2017 12:56. Express and informed consent means consent voluntarily given in writing, by a competent person, after sufficient explanation and disclosure of the subject matter involved to enable the person to make a knowing and willful decision without any element of force, fraud, deceit, duress, or other form of constraint or coercion. This person is 18 years of age or older, is not now known to be incompetent to consent to treatment with a guardian advocate, and does not have a health care surrogate or proxy currently making medical treatment decisions. I have found this person to be one of the following: [] Competent to provide express and informed consent, as defined above, for voluntary admission to this facility and is competent to provide express and informed consent for treatment. He/she has the consistent capacity to make well reasoned, willful, and knowing decisions concerning his or her medical or mental health treatment. The person fully and consistently understands the purpose of the admission for examination/placement and is fully capable of personally exercising all rights [place] [x] Incompetent to provide express and informed consent to voluntary admission, and this is incompetent to provide express and informed consent to treatment. The person must be transferred to involuntary status and a petition for a guardian advocate filed with the Circuit Court. [] Refusing to provide express and informed consent to voluntary admission but is competent to provide express and informed consent for treatment. The person must be discharged or transferred to involuntary status. Form shall be completed within 24 hours of a person's arrival at the receiving facility and filed in the clinical record of each person: 1. Admitted on a voluntary basis 2. Permitted to provide express and informed consent to his/her own treatment 3. Allowed to transfer from involuntary to voluntary status 4. Prior to permitting a person to consent to his or her own treatment after having been previously found incompetent to consent to treatment. History of Present Illness Capacity: Lacks Capacity HPI The patient is a 41 years old man, domicile with his mother, single, part-time employed in [employer], with psychiatric history of autism spectrum disorder, intermittent explosive disorder, multiple psychiatric hospitalizations , no previous suicidal attempts, establish outpatient psychiatric care in the [facility] with Dr. Jimenez, the patient is on Seroquel 1200 mg daily, 300 in the morning, 300 in the afternoon, 600 at bedtime, Ativan 1 mg 3 times a day when necessary agitation and anxiety, no significant medical history, who was brought by his mother due to persistent disorganized behavior, agitation, lack of sleep. Chart was reviewed. Case discussed with the ER physician and nurse in charge. Collateral information from mother Alva Butts, was obtained. On psychiatric evaluation patient is poorly cooperative, very disorganized, talkative, repetitive. Patient says that he is here because "they want to kill me, mon don't allow them to kill me". Patient doesn't make sense, but he is sensitive to verbal de-escalation. His mother says that the patient has been this way for about 2 weeks now. He has been very talkative, talking irrational , restless, irritable, which goes far beyond his baseline. She says that at baseline the patient can work part-time in [employer], he can sustain pleasant conversations and he is usually calm and cooperative. The patient has been taking his medication as prescribed. No suicidal or homicidal ideation, no visual or auditory hallucinations. The patient denies the use of drugs and alcohol. Review of Systems Constitutional: DENIES: Diaphoretic episodes, Fatigue, Fever, Weight gain, Weight loss, Chills, Dizziness, Change in appetite, Night Sweats Endocrine: DENIES: Heat/cold intolerance, Polydipsia, Polyuria, Polyphagia Eyes: DENIES: Blurred vision, Diplopia, Eye inflammation, Eye pain, Vision loss , Photosensitivity, Double Vision Cardiovascular: DENIES: Chest pain, Palpitations, Syncope, Dyspnea on Exertion , PND, Lower Extremity Edema, Orthopnea, Claudication Gastrointestinal: DENIES: Abdominal pain, Black stools, Bloody stools, Constipation, Diarrhea, Nausea, Vomiting, Difficulty Swallowing, Anorexia Genitourinary: DENIES: Sexual dysfunction, Urinary frequency, Urinary incontinence, Urgency, Hematuria, Dysuria, Nocturia, Penile Discharge, Testicular Pain, Testicular Swelling Musculoskeletal: DENIES: Joint pain, Muscle aches, Stiffness, Joint Swelling, Back pain, Neck pain Integumentary: DENIES: Abnormal pigmentation, Nail changes, Pruritus, Rash Hematologic/lymphatic: DENIES: Bruising, Lymphadenopathy Immunologic/allergic: DENIES: Eczema, Urticaria Neurologic: DENIES: Abnormal gait, Headache, Localized weakness, Paresthesias, Seizures, Speech Problems, Tremor, Poor Balance Psychiatric: COMPLAINS OF: Anxiety, Mood changes Substance Abuse History Drugs/Alcohol past 12 months Patient denies alcohol and the use of drugs Past Family Social History Coded Allergies: risperidone (Unverified Allergy, Severe, "CAN'T MOVE", 04/21/17) aripiprazole (Unverified Allergy, Intermediate, 04/21/17) Uncoded Allergies: abilify maintena (Adverse Reaction, Severe, 06/24/16) Active Scripts Zolpidem (Ambien) 10 Mg Tab, 10 MG PO HS Y for INSOMNIA, #30 TAB 0 Refills Prov:Thomas Crawford MD 04/27/17 Ranitidine (Ranitidine) 150 Mg Tab, 150 MG PO DAILY for Heartburn Management, # 30 TAB 0 Refills Prov:Demetrio Vickers MD 04/23/17 Quetiapine (Seroquel) 300 Mg Tab, 300 MG PO DIRECTED, #120 TAB 3 Refills 1 pill q am and 3pm and 2 q hs Prov:Thomas Crawford MD 04/21/17 Lorazepam (Ativan) 1 Mg Tab, 1 MG PO BID Y for ANXIETY AND/OR AGITATION, #60 TAB 3 Refills Prov:Thomas Crawford MD 04/21/17 Discontinued Reported Medications Zolpidem (Ambien) 10 Mg Tab, 10 MG PO HS Y for INSOMNIA, #30 TAB 0 Refills 04/27/17 Current Medications Medications (Trade) Dose Ordered Sig/Ilda Route Start Time Stop Time Status Last Admin (SEROquel) 300 mg TID PO 04/30/17 13:00 UNV Non-Formulary Medication 150 mg DAILY PO 04/30/17 13:00 UNV (SEROquel) 300 mg HS PO 04/30/17 21:00 UNV (Depakote Dr) 250 mg Q12HR PO 04/30/17 13:00 UNV (KlonoPIN) 2 mg HS PO 04/30/17 21:00 UNV Family Psych History No family psychiatric history Social History Patient was born and raised in [facility], he lives in [place] with his mother , part-time employed in [employer], Patient's Strengths (min. 2) Family support, outpatient psychiatric care Physical Exam Vital Signs Vital Signs Date Time Temp Pulse Resp B/P (MAP) Pulse Ox O2 Delivery O2 Flow Rate FiO2 04/29/17 17:06 98.2 113 18 141/87 (105) 99 Lab Results Test 04/29/17 20:45 White Blood Count 5.8 TH/MM3 Red Blood Count 4.47 MIL/MM3 Hemoglobin 13.1 GM/DL Hematocrit 38.4 % Mean Corpuscular Volume 85.8 FL Mean Corpuscular Hemoglobin 29.4 PG Mean Corpuscular Hemoglobin Concent 34.2 % Red Cell Distribution Width 13.1 % Platelet Count 239 TH/MM3 Mean Platelet Volume 8.1 FL Neutrophils (%) (Auto) 50.4 % Lymphocytes (%) (Auto) 36.7 % Monocytes (%) (Auto) 9.8 % Eosinophils (%) (Auto) 2.7 % Basophils (%) (Auto) 0.4 % Neutrophils # (Auto) 2.9 TH/MM3 Lymphocytes # (Auto) 2.1 TH/MM3 Monocytes # (Auto) 0.6 TH/MM3 Eosinophils # (Auto) 0.2 TH/MM3 Basophils # (Auto) 0.0 TH/MM3 CBC Comment DIFF FINAL Differential Comment Blood Urea Nitrogen 9 MG/DL Creatinine 1.07 MG/DL Random Glucose 115 MG/DL Total Protein 6.4 GM/DL Albumin 3.8 GM/DL Calcium Level 8.4 MG/DL Alkaline Phosphatase 73 U/L Aspartate Amino Transf (AST/SGOT) 22 U/L Alanine Aminotransferase (ALT/SGPT) 43 U/L Total Bilirubin 0.1 MG/DL Sodium Level 141 MEQ/L Potassium Level 3.3 MEQ/L Chloride Level 106 MEQ/L Carbon Dioxide Level 25.6 MEQ/L Anion Gap 9 MEQ/L Estimat Glomerular Filtration Rate 77 ML/MIN Mental Status Examination Appearance: Appropriate Consciousness: Alert Orientation: Person, Place Motor Activity: Abnormal gait Speech: Rapid Language: Adequate Fund of Knowledge: Inadequate Attention and Concentration: Adequate Memory: Unremarkable Mood: Irritable Affect: Irritable Thought Process & Associations: Loose associations, Disorganized Thought Content: Bizarre thinking Hallucination Type: None Delusion Type: None Suicidal Ideation: No Suicidal Plan: No Suicidal Intention: No Homicidal Ideation: No Homicidal Plan: No Homicidal Intention: No Insight: Fair Judgment: Impulsive Assessment & Plan Problem List: (1) Autism spectrum disorder ICD Codes: F84.0 - Autistic disorder Status: Acute Assessment & Plan: On psychiatric evaluation the patient is disorganized, restless, tangential, with rapidly and incoherent speech. Patient also has been reportedly verbally aggressive at home and was sleeping more than 3 hours per night. Patient has a psychiatric history of autism spectrum disorder, but as per mother at baseline the patient works part-time, can have logical conversations, take care of himself, but usually be more attentive and his sleep over 8 hours per day. His mother feels that the patient under the circumstances could be a danger to herself and others due to the level of disorganization and agitation. Patient will be admitted in psychiatry for stabilization and safety. Try to communicate with Dr. Banks. I'm going to reduce his Seroquel to 900 mg daily with the idea that akathisia could be partly responsible for patient current presentation. Add propranolol 10 mg 3 times a day. Add Depakote 250 mg twice a day for mood stabilization. Add clonazepam 2 mg at bedtime to help with sleep. Discontinue daytime Ativan to avoid paradoxical reaction. Transfer patient to med psych. auto glass worker intervention for psychosocial assessment, individual and group therapies. Will consult psychiatry for second opinion. Assessment & Plan Estimated LOS: Hugo Ferrer MD Apr 30, 2017 13:11
[2017-04-30] MEDS: PROPRANOLOL HCL 10 MG TAB PO SCH ×2 (14:00→21:03)
[2017-04-30] MEDS: QUEtiapine FUMARATE 300 MG TAB PO SCH ×2 (14:00→17:38)
[2017-04-30] MEDS: FAMOTIDINE 20 MG TAB PO SCH (14:00)
[2017-04-30] MEDS: DIVALPROEX SODIUM DELAYED RELEASE 250 MG TAB PO SCH ×2 (14:00→21:03)
[2017-04-30 14:53] VITALS: BP 128/72; PULSE 100; RESP 18; TEMP 97.4; O2SAT 95
[2017-04-30 18:03] VITALS: BP 131/77; PULSE 99; RESP 17; TEMP 99; O2SAT 96
[2017-04-30] MEDS ORDERED: QUEtiapine FUMARATE 300 MG TAB PO SCH (21:00)
[2017-04-30] MEDS: clonazePAM 1 MG TAB PO SCH (21:03)
[2017-04-30] MEDS: ACETAMINOPHEN 325 MG TAB PO PRN (21:07)
[2017-05-01] MEDS: PROPRANOLOL HCL 10 MG TAB PO SCH ×3 (05:58→21:03)
[2017-05-01 06:03] VITALS: BP 114/81; PULSE 88; RESP 21; TEMP 97.1; O2SAT 100
[2017-05-01] MEDS: FAMOTIDINE 20 MG TAB PO SCH (07:57)
[2017-05-01] MEDS: QUEtiapine FUMARATE 300 MG TAB PO SCH ×3 (07:57→17:04)
[2017-05-01] MEDS: DIVALPROEX SODIUM DELAYED RELEASE 250 MG TAB PO SCH ×2 (07:57→21:03)
[2017-05-01] MEDS: ACETAMINOPHEN 325 MG TAB PO PRN (11:25)
--- NOTE | 2017-05-01 13:59 | HHI.PYPN ---
Subjective Remarks This is a request for second opinion. Admission note was reviewed and I agree with the contents. Pt was seen and case discussed with nursing. Pt has been on good behavior. No outbursts, perseverations, compliant with instructions, eating and sleeping well. Insight poor likely secondary to cognitive deficits. Thought process remains disorganized. Mental Status Examination Appearance: Appropriate Consciousness: Alert Orientation: Person, Place, Date/Time Motor Activity: Abnormal gait Speech: Unremarkable Language: Adequate Fund of Knowledge: Inadequate Attention and Concentration: Adequate Memory: Unremarkable Mood: Irritable Affect: Irritable Thought Process & Associations: Loose associations, Disorganized Thought Content: Bizarre thinking Hallucination Type: None Delusion Type: None Suicidal Ideation: No Suicidal Plan: No Suicidal Intention: No Homicidal Ideation: No Homicidal Plan: No Homicidal Intention: No Insight: Fair Judgment: Impulsive Results Vitals/IOs Vital Signs Date Time Temp Pulse Resp B/P (MAP) Pulse Ox O2 Delivery O2 Flow Rate FiO2 05/01/17 06:03 97.1 88 21 114/81 (92) 100 Intake and Output 05/01/17 05/01/17 05/02/17 08:00 16:00 00:00 Intake Total 360 ml 240 ml Balance 360 ml 240 ml Assessment & Plan Problem List: (1) Autism spectrum disorder ICD Codes: F84.0 - Autistic disorder Status: Acute Assessment & Plan I agree with the first opinion to continue petition, criteria include aggressive behavior before admission. Justification for Cont. Inpt. Patient would decompensate in a less restrictive setting. Roger Thorpe DO May 01, 2017 13:59
[2017-05-01 18:00] VITALS: BP 121/59; PULSE 81; RESP 18; TEMP 97.4; O2SAT 94
[2017-05-01] MEDS: clonazePAM 1 MG TAB PO SCH (21:03)
[2017-05-02] MEDS: PROPRANOLOL HCL 10 MG TAB PO SCH ×3 (05:57→21:03)
[2017-05-02] MEDS: ACETAMINOPHEN 325 MG TAB PO PRN (06:00)
[2017-05-02 06:25] VITALS: BP 115/58; PULSE 82; RESP 18; TEMP 97.5; O2SAT 97
[2017-05-02] MEDS: DIVALPROEX SODIUM DELAYED RELEASE 250 MG TAB PO SCH ×2 (08:21→21:03)
[2017-05-02] MEDS: QUEtiapine FUMARATE 300 MG TAB PO SCH ×3 (08:21→16:41)
[2017-05-02] MEDS: FAMOTIDINE 20 MG TAB PO SCH (08:21)
--- NOTE | 2017-05-02 12:41 | HHI.PYPN ---
Subjective Remarks Patient seen for follow, chart reviewed. Discussed nursing staff reported that mother came to visit with patient today has not had any behavioral disturbances. Patient found sitting in hospital bed speaking with mother who was interviewed alone. Patient states that he is feeling "better" reported that he was feeling sick prior to coming in but that he no longer feels this way. Patient states that he is feeling not well for the past 4 days and was unable to describe exactly what was he experiencing aside from having difficulty with sleep. Patient noted to have concrete thought process has history of autism. Patient states his mood is "good" reported that he feels "100% better" denies any perceptual disturbances or delusions at this time. Patient noted to carry adequate conversation, noted to have pressured speech, with appropriate engagement during interview. Patient denies any adverse drug reaction from medication regimen at this time. Patient reports sleeping well, eating and drinking well, no problems with urination or bowel movement. Billing Administrator spoke with patient's mother who had come to visit his which she states that she sees that her son is much better. Mother reports that previously she been having difficulty for the past couple of weeks with his behavior as well as medication changes with her outpatient provider. Nancy plan was reviewed with patient's mother which she acknowledges and for sees patient is stabilized soon to be discharged back to her care. Review of Systems Except as stated in HPI: all other systems reviewed are Neg Mental Status Examination Appearance: Appropriate Consciousness: Alert Orientation: Person, Place, Date/Time Motor Activity: Abnormal gait Speech: Unremarkable Language: Adequate Fund of Knowledge: Inadequate Attention and Concentration: Adequate Memory: Unremarkable Mood: Appropriate Affect: Appropriate, Anxious Thought Process & Associations: Loose associations, Disorganized Thought Content: Appropriate Hallucination Type: None Delusion Type: None Suicidal Ideation: No Suicidal Plan: No Suicidal Intention: No Homicidal Ideation: No Homicidal Plan: No Homicidal Intention: No Insight: Fair Judgment: Impulsive Results Vitals/IOs Vital Signs Date Time Temp Pulse Resp B/P (MAP) Pulse Ox O2 Delivery O2 Flow Rate FiO2 05/02/17 06:25 97.5 82 18 115/58 (77) 97 Intake and Output 05/02/17 05/02/17 05/03/17 08:00 16:00 00:00 Intake Total 240 ml Balance 240 ml Assessment & Plan Problem List: (1) Autism spectrum disorder ICD Codes: F84.0 - Autistic disorder Status: Acute Assessment & Plan Patient at this time was able to engage in interview appropriately, not noted to have any pressured speech, bizarre thinking or psychotic symptoms. Patient was better organized thought process as he was able to maintain engage in conversation. Patient really started on Depakote which appears to be effective. Valproic acid level ordered for tomorrow a.m. Continue current treatment for now. Continue recommendations as per primary medical team. Discharge planning in progress Justification for Cont. Inpt. At risk for further decompensation if at lower level of care Discharge Planning Patient to be discharged back to mother's care once psychiatric stable. Jefferson Wolfe MD May 02, 2017 12:41
--- NOTE | 2017-05-02 15:03 | PD.TTN ---
Patient Problems 1. Discharge planning 2. Medication compliance 3. Knowledge deficit 4. Lack of coping skills Progress Toward Goals Provider Present: Dr. Joycelyn Wolfe Provider Input: 05/02/2017 patient continue to require medication stablizing Nurse(s) Present: CARISSA [place] Nurse(s) Input: 05/02/2017 patient is taking his medication and eating meals he is however obtaining redirection with his mood Psychiatric Counselors Present: VERA Smith Psych Therapist Input: 05/02/2017 Patient will be encouraged with group activities; call family to discuss discharge concerns Group Spec/RT/OT/MONTALVO Present: Taco Tran OT Group Spec/RT/OT/MONTALVO Input: 05/02/2017 New admission will be orientated with group activities Documentation Scribe: VERA Smith Sandra LMHC May 02, 2017 15:03
[2017-05-02 18:04] VITALS: BP 98/55; PULSE 76; RESP 17; TEMP 97.4; O2SAT 96
[2017-05-02 21:01] VITALS: BP 102/60
[2017-05-02] MEDS: clonazePAM 1 MG TAB PO SCH (21:03)
[2017-05-03] MEDS: PROPRANOLOL HCL 10 MG TAB PO SCH ×3 (05:36→21:11)
[2017-05-03 05:49] VITALS: BP 118/63; PULSE 81; RESP 16; TEMP 97.6; O2SAT 97
[2017-05-03 07:17] LABS: BICARBONATE 32.6 MEQ/L (21.0-32.0); POTASSIUM 3.3 MEQ/L (3.5-5.1)
--- NOTE | 2017-05-03 07:55 | HHI.PYPN ---
Subjective Remarks Patient seen for follow-up, chart reviewed. Discussion she staff reported patient continues to be noted to be childlike, cooperative and slept well last evening. Patient was sitting in hospital chair, cooperative today. Patient noted to have's subs pressured speech with interview today. Patient reports having slept well with some back pain that has been happening for some time as per patient but estimates about for 5 hours last evening which she states is usual for him. He shouldn't says his mood is "pretty good", reported having visited by his mother and that his brothers planning to visit him today. When asked how he has to compare when he first came any patient states that he had felt sick initially prior to coming to the hospital. States feeling much better. Patient noted to be tangential at times during interview. Review of Systems Except as stated in HPI: all other systems reviewed are Neg Mental Status Examination Appearance: Appropriate Consciousness: Alert Orientation: Person, Place, Date/Time Motor Activity: Abnormal gait Speech: Pressured Language: Adequate Fund of Knowledge: Inadequate Attention and Concentration: Adequate Memory: Unremarkable Mood: Appropriate Affect: Appropriate, Anxious Thought Process & Associations: Loose associations, Tangential Thought Content: Appropriate Hallucination Type: None Delusion Type: None Suicidal Ideation: No Suicidal Plan: No Suicidal Intention: No Homicidal Ideation: No Homicidal Plan: No Homicidal Intention: No Insight: Fair Judgment: Impulsive Results Labs Labs reviewed Test 05/03/17 05:12 Blood Urea Nitrogen 16 MG/DL Creatinine 1.03 MG/DL Random Glucose 80 MG/DL Calcium Level 9.0 MG/DL Sodium Level 140 MEQ/L Potassium Level 3.3 MEQ/L Chloride Level 102 MEQ/L Carbon Dioxide Level 32.6 MEQ/L Anion Gap 5 MEQ/L Estimat Glomerular Filtration Rate 80 ML/MIN Valproic Acid (Depakene) Level 48 MCG/ML Vitals/IOs Vital Signs Date Time Temp Pulse Resp B/P (MAP) Pulse Ox O2 Delivery O2 Flow Rate FiO2 05/03/17 05:49 97.6 81 16 118/63 (81) 97 Intake and Output 05/03/17 05/03/17 05/04/17 08:00 16:00 00:00 Intake Total 0 ml Balance 0 ml Assessment & Plan Problem List: (1) Autism spectrum disorder ICD Codes: F84.0 - Autistic disorder Status: Acute Assessment & Plan Patient noted to have his some pressured speech with interview today and well as some tangentiality. Depakote levels were subtherapeutic. We'll increase Depakote to 250 mg a.m./500 mg at bedtime for mood stabilization. Continue with the medications. Patient had reported some chronic back pain as well as noted to have some hypokalemia upon lab results. Consult hospitalist for evaluation and management. Discharge planning in progress Justification for Cont. Inpt. At risk for further decompensation if at lower level of care Discharge Planning Patient to return back to his residence was psychiatrically stable. Jefferson Wolfe MD May 03, 2017 07:55
[2017-05-03] MEDS: FAMOTIDINE 20 MG TAB PO SCH (09:35)
[2017-05-03] MEDS: QUEtiapine FUMARATE 300 MG TAB PO SCH ×3 (09:35→18:00)
[2017-05-03] MEDS: DIVALPROEX SODIUM DELAYED RELEASE 250 MG TAB PO SCH (09:35)
[2017-05-03 18:08] VITALS: BP 105/61; PULSE 83; RESP 16; TEMP 97.3; O2SAT 98
[2017-05-03] MEDS: clonazePAM 1 MG TAB PO SCH (20:47)
[2017-05-03] MEDS ORDERED: DIVALPROEX DR 500 MG TABEC PO SCH (21:00)
[2017-05-04 05:14] VITALS: BP 96/57; PULSE 76; RESP 18; TEMP 97.7; O2SAT 96
[2017-05-04] MEDS: PROPRANOLOL HCL 10 MG TAB PO SCH (05:20)
[2017-05-04] MEDS: QUEtiapine FUMARATE 300 MG TAB PO SCH (08:38)
[2017-05-04] MEDS: FAMOTIDINE 20 MG TAB PO SCH (08:38)
[2017-05-04] MEDS: DIVALPROEX SODIUM DELAYED RELEASE 250 MG TAB PO SCH (08:38)
[2017-05-04] MEDS ORDERED: POTASSIUM CHLORIDE 20 MEQ CONTROLLED RELEASE TAB PO ONE (09:15)
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
[2017-05-04] MEDS ORDERED: DIVA500T PO (10:06)
[2017-05-04] MEDS ORDERED: CLON1 PO (10:06)
[2017-05-04] MEDS ORDERED: DIVA250T PO (10:06)
[2017-05-04] MEDS ORDERED: QUET1TAB10 PO (10:06)
[2017-05-04] MEDS ORDERED: PROP10TA6 PO (10:06)
--- NOTE | 2017-05-04 10:41 | HHI.DS ---
Psychiatry Discharge Summary Inpatient Psychiatric care?: Yes Advance Directive: No Reason Not Provided: REFUSED Mental Health AdvanceDirective: No Health Care Proxy: No Admission Admission Date Apr 30, 2017 at 12:56 Admission Diagnosis: (1) Autism spectrum disorder ICD Code: F84.0 - Autistic disorder Brief History The patient is a 41 years old man, domicile with his mother, single, part-time employed in [employer], with psychiatric history of autism spectrum disorder, intermittent explosive disorder, multiple psychiatric hospitalizations , no previous suicidal attempts, establish outpatient psychiatric care in the [facility] with Dr. Jimenez, the patient is on Seroquel 1200 mg daily, 300 in the morning, 300 in the afternoon, 600 at bedtime, Ativan 1 mg 3 times a day when necessary agitation and anxiety, no significant medical history, who was brought by his mother due to persistent disorganized behavior, agitation, lack of sleep. Chart was reviewed. Case discussed with the ER physician and nurse in charge. Collateral information from mother Alva Butts, was obtained. On psychiatric evaluation patient is poorly cooperative, very disorganized, talkative, repetitive. Patient says that he is here because "they want to kill me, mon don't allow them to kill me". Patient doesn't make sense, but he is sensitive to verbal de-escalation. His mother says that the patient has been this way for about 2 weeks now. He has been very talkative, talking irrational , restless, irritable, which goes far beyond his baseline. She says that at baseline the patient can work part-time in [employer], he can sustain pleasant conversations and he is usually calm and cooperative. The patient has been taking his medication as prescribed. No suicidal or homicidal ideation, no visual or auditory hallucinations. The patient denies the use of drugs and alcohol. Tobacco Use In Past 30 Days: No Tobacco Past 30 Days Alcohol Use: Never Hospital Course Patient is a 41 years old man, domicile with his mother, single, part- time employed in [employer], with psychiatric history of autism spectrum disorder, intermittent explosive disorder, multiple psychiatric hospitalizations, no previous suicidal attempts, establish outpatient psychiatric care in the [facility] with Dr. Jimenez, the patient is on Seroquel 1200 mg daily, 300 in the morning, 300 in the afternoon, 600 at bedtime, Ativan 1 mg 3 times a day when necessary agitation and anxiety, no significant medical history, who was brought by his mother due to persistent disorganized behavior, agitation, lack of sleep. Patient had quetiapine reduced to 900mg PO daily, started on Depakote 250mg PO BID and titrated up to 250mg/500mg, started on clonazepam 2mg PO HS and propranolol 10mg PO TID for likely akathisia from high quetiapine dose previously. Patient tolerated level well was noted to have stable mood, organized thought process, and mother during admission had been visiting with him and recognized that the patient was back at baseline prior to discharge. He did not endorse suicidal ideation nor perceptual disturbances and maintained fair mood, was goal-directed and hopeful to continue to improve and maintain stable mood. Patient agreed to continue medication regimen and outpatient follow up for continuity of care. Patient plans on returning home with mother. Patient advised to call 911 or go nearest ED in case of emergency. Patient agrees with plan. Results Blood Pressure 96 / 57 Vital Signs Date Time Temp Pulse Resp B/P (MAP) Pulse Ox O2 Delivery O2 Flow Rate FiO2 05/04/17 05:14 97.7 76 18 96/57 (70) 96 Laboratory Tests Test 05/03/17 05:12 Potassium Level 3.3 MEQ/L (3.5-5.1) Carbon Dioxide Level 32.6 MEQ/L (21.0-32.0) Estimat Glomerular Filtration Rate 80 ML/MIN (>89) Valproic Acid (Depakene) Level 48 MCG/ML (50-100) Laboratory Results Test 05/03/17 05:12 Valproic Acid (Depakene) Level 48 MCG/ML (50-100) Summary of Procedures None Pending results at discharge: No Medications # of Antipsychotic meds at D/C: 1 Approp Antipsych med options 1 - Minimum of three failed multiple trials of monotherapy. 2 - Documented plan to taper to monotherapy due to previous use of multiple meds OR cross-taper in progress at D/C. 3 - Documentation of augmentation of Clozapine. 4 - Justification other than those listed in allowable values 1-3, document here : Discharge Discharge Date: May 04, 2017 Discharge Diagnosis: (1) Autism spectrum disorder ICD Code: F84.0 - Autistic disorder Status: Chronic Pt Condition on Discharge: Stable Discharge Disposition: Discharge Home Discharge Instructions Diet Instructions: As Tolerated, No Restrictions Activities you can perform: Regular-No Restrictions Discharge Time > 30 minutes Mental Status Examination Appearance: Appropriate Consciousness: Alert Orientation: Person, Place, Date/Time Motor Activity: Abnormal gait Speech: Pressured Language: Adequate Fund of Knowledge: Inadequate Attention and Concentration: Adequate Memory: Unremarkable Mood: Appropriate Affect: Appropriate Thought Process & Associations: Intact Thought Content: Appropriate Hallucination Type: None Delusion Type: None Suicidal Ideation: No Suicidal Plan: No Suicidal Intention: No Homicidal Ideation: No Homicidal Plan: No Homicidal Intention: No Insight: Fair Judgment: Impulsive Discharge/Advance Care Plan Health Problems: (1) Autism spectrum disorder Goals to promote your health * To prevent worsening of your condition and complications * To maintain your health at the optimal level Directions to meet your goals Take your medications as prescribed Follow your dietary instruction Follow activity as directed Keep your appointments as scheduled Take your immunizations and boosters as scheduled If your symptoms worsen call your PCP, if no PCP go to Urgent Care Center or Emergency Room For 06/12 questions related to your inpatient stay or results of tests pending at discharge, please contact Dr. Jefferson Wolfe at Smoking is Dangerous to Your Health. Avoid second hand smoking Jefferson Wolfe MD May 04, 2017 10:41
[2017-05-06] MEDS ORDERED: DEPA500T3 PO ×2 (10:22→10:23)
== END 2017-05-04 12:00 | disposition home or self-care (01) | DRG 884 ==
LOC: NEPD 17:05 → NEDA 04-30 12:56 → H4EA 04-30 14:07
PROVIDERS: ADMIT Student in an Organized Health Care Education/Training Program; ATTEND Student in an Organized Health Care Education/Training Program
DX: F84.0 Autistic disorder (principal); R41.89 Other symptoms and signs involving cognitive functions and awareness; E87.6 Hypokalemia; M54.9 Dorsalgia, unspecified
CPT/HCPCS: 80048; 80053; 80164; 85025; 96372; J1630

== ENCOUNTER 2017-05-06 11:41 | Inpatient (IN) | payer MEDICARE ==
[~2017-05-06] VITALS: Ht 170.2 cm; Wt 70.9 kg
[~2017-05-06 11:41] MED LIST changes: -AMBI10TA PO; +CLON1 PO; +DEPA500T3 PO; +DIVA250T PO; +DIVA500T PO; -LORA-474 PO; +PROP10TA6 PO; +QUET1TAB10 PO; -SERO300T PO
[2017-05-06 11:43] VITALS: BP 118/72; PULSE 82; RESP 12; TEMP 98.6; O2SAT 99
[2017-05-06 12:13] VITALS: BP 114/65; PULSE 75; RESP 18; TEMP 99.1; O2SAT 99
[2017-05-06] MEDS ORDERED: MAGNESIUM HYDROXIDE SUSP 30 ML CUP PO PRN (12:30)
[2017-05-06] MEDS ORDERED: LORazepam 2 MG/ML VIAL IM PRN (12:30)
[2017-05-06] MEDS ORDERED: diphenhydrAMINE HCL 50 MG/ML VIAL IM PRN (12:30)
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
[2017-05-06] MEDS: FAMOTIDINE 20 MG TAB PO SCH (12:45)
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
[2017-05-06 16:00] VITALS: BP 116/57; PULSE 85; RESP 16; TEMP 97.9; O2SAT 96
[2017-05-06 18:00] VITALS: BP 116/57; PULSE 85; RESP 16; TEMP 97.9
[2017-05-06] MEDS: clonazePAM 1 MG TAB PO SCH (20:56)
[2017-05-06] MEDS: DIVALPROEX SODIUM E.R. 500 MG TAB PO SCH (20:57)
[2017-05-06] MEDS: LURASIDONE 40 MG TAB PO SCH (20:57)
[2017-05-06] MEDS: ALUMINUM/MAGNESIUM/SIMETH 30 ML CUP PO PRN (21:17)
[2017-05-07] MEDS: LORazepam 1 MG TAB PO PRN (00:52)
[2017-05-07 01:00] VITALS: BP 120/71; PULSE 103; RESP 18; O2SAT 96
[2017-05-07 06:19] VITALS: BP 115/64; PULSE 110; RESP 18; TEMP 98; O2SAT 94
--- NOTE | 2017-05-07 08:09 | HHI.PYPN ---
Subjective Remarks Patient initially seen by Dr. John Maier his initial psych eval reviewed and agreed with. I have completed the initial admission psychiatric template and review the medication reconciliation. Dr. Maier has signed first opinion petition supporting Colon act. I agree. Patient meets criteria for involuntary psychiatric hospitalization under the Colon act thus will cosign second opinion petition supporting Colon act Dr. Maier is also requested health care surrogate I agreed to that also. Patient seen by me with nurse Radha. Patient is alert quite childlike his developmental delays his autistic behaviors are quite prevalent. He denies any of the behaviors that are documented on the admission and the Colon act. He does denies suicidality with plan does deny voices. However this time he does meet criteria for further assessment of the Colon act. There is a Depakote level in the process of being determined at this time. Otherwise will continue medications per the med reconciliation. Review of Systems Constitutional: DENIES: Diaphoretic episodes, Fatigue, Fever, Weight gain, Weight loss, Chills, Dizziness, Change in appetite, Night Sweats Endocrine: DENIES: Heat/cold intolerance, Polydipsia, Polyuria, Polyphagia Eyes: DENIES: Blurred vision, Diplopia, Eye inflammation, Eye pain, Vision loss , Photosensitivity, Double Vision Ears, nose, mouth, throat: DENIES: Tinnitus, Hearing loss, Vertigo, Nasal discharge, Oral lesions, Throat pain, Hoarseness, Ear Pain, Running Nose, Epistaxis, Sinus Pain, Toothache, Odynophagia Respiratory: DENIES: Apneas, Cough, Snoring, Wheezing, Hemoptysis, Sputum production, Shortness of breath Cardiovascular: DENIES: Chest pain, Palpitations, Syncope, Dyspnea on Exertion , PND, Lower Extremity Edema, Orthopnea, Claudication Gastrointestinal: DENIES: Abdominal pain, Black stools, Bloody stools, Constipation, Diarrhea, Nausea, Vomiting, Difficulty Swallowing, Anorexia Genitourinary: DENIES: Sexual dysfunction, Urinary frequency, Urinary incontinence, Urgency, Hematuria, Dysuria, Nocturia, Penile Discharge, Testicular Pain, Testicular Swelling Musculoskeletal: DENIES: Joint pain, Muscle aches, Stiffness, Joint Swelling, Back pain, Neck pain Integumentary: DENIES: Abnormal pigmentation, Nail changes, Pruritus, Rash Hematologic/lymphatic: DENIES: Bruising, Lymphadenopathy Immunologic/allergic: DENIES: Eczema, Urticaria Neurologic: DENIES: Abnormal gait, Headache, Localized weakness, Paresthesias, Seizures, Speech Problems, Tremor, Poor Balance Psychiatric: COMPLAINS OF: Anxiety, Agitation Mental Status Examination Appearance: Appropriate Consciousness: Alert Orientation: Person, Place, Date/Time Motor Activity: Normal gait Speech: Hesitant Language: Perseveration, Other Fund of Knowledge: Inadequate Attention and Concentration: Easily Distracted Memory: Impaired Mood: Oppositional Affect: Labile Thought Process & Associations: Other Thought Content: Bizarre thinking Hallucination Type: None Delusion Type: None Suicidal Ideation: No Suicidal Plan: No Suicidal Intention: No Homicidal Ideation: No Homicidal Plan: No Homicidal Intention: No Insight: Poor Judgment: Impulsive Results Vitals/IOs Vital Signs Date Time Temp Pulse Resp B/P (MAP) Pulse Ox O2 Delivery O2 Flow Rate FiO2 05/07/17 06:19 98.0 110 18 115/64 (81) 94 05/06/17 12:13 Room Air Intake and Output 05/07/17 05/07/17 05/08/17 08:00 16:00 00:00 Intake Total 480 ml Balance 480 ml Assessment & Plan Problem List: (1) Intermittent explosive disorder ICD Codes: F63.81 - Intermittent explosive disorder Assessment & Plan Estimated LOS: days this time patient does meet criteria for further inpatient hospitalist of the Colon act. Dr. Muhammad done first opinion, I would then second opinion, he has long health care surrogate and guardian advocate and I agree with that also. We'll to his medications per med reconciliation. Basically further discussion with patient's family about possible placement issues Justification for Cont. Inpt. At this time patient will decompensate and placed in the lower level of care Discharge Planning Possible return to the family home versus other alternative Request HC Surrog/Guard Advoc?: Yes Gwyn Lassiter MD May 07, 2017 08:09
[2017-05-07] MEDS: DIVALPROEX SODIUM E.R. 500 MG TAB PO SCH ×2 (09:54→22:05)
[2017-05-07] MEDS: FAMOTIDINE 20 MG TAB PO SCH (09:54)
[2017-05-07] MEDS: LURASIDONE 40 MG TAB PO SCH ×2 (09:54→22:06)
[2017-05-07 10:00] LABS: EOSINOPHIL % 0.5 % (0.0-4.0); HEMATOCRIT 44.8 % (39.0-51.0); HEMOGLOBIN 15.1 GM/DL (13.0-17.0); LYMPH % 5.2 % (9.0-44.0); LYMPHOCYTE # 0.5 TH/MM3 (1.0-4.8); MEAN CELL VOLUME 86.7 FL (80.0-100.0); MEAN CORPUSCULAR HEMOGLOBIN 29.2 PG (27.0-34.0); MEAN CORPUSCULAR HGB CONC 33.7 % (32.0-36.0); MEAN PLATELET VOLUME 8.5 FL (7.0-11.0); MONOCYTE # 0.6 TH/MM3 (0-0.9); NEUT % 87.3 % (16.0-70.0); PLATELET COUNT 231 TH/MM3 (150-450); RED BLOOD COUNT 5.16 MIL/MM3 (4.50-5.90); RED CELL DISTRIBUTION WIDTH 13.1 % (11.6-17.2); WHITE BLOOD COUNT 9.2 TH/MM3 (4.0-11.0)
[2017-05-07] MEDS: ACETAMINOPHEN 325 MG TAB PO PRN (10:07)
[2017-05-07 10:21] LABS: AST (GOT) 12 U/L (15-37); BICARBONATE 25.2 MEQ/L (21.0-32.0); BLOOD UREA NITROGEN 20 MG/DL (7-18); CALCIUM 8.5 MG/DL (8.5-10.1); CHLORIDE 103 MEQ/L (98-107); CREATININE 1.03 MG/DL (0.60-1.30); GLOMERULAR FILTRATION RATE 80 ML/MIN (>89); GLUCOSE,RANDOM 104 MG/DL (74-106); SODIUM (NA) 138 MEQ/L (136-145)
[2017-05-07 10:22] LABS: ALT (GPT) 21 U/L (12-78); CHOLESTEROL 170 MG/DL (120-200); TRIGLYCERIDES 103 MG/DL (42-150)
[2017-05-07 10:47] LABS: ALKALINE PHOSPHATASE 56 U/L (45-117); CHOLESTEROL/ HDL RATIO 3.01 RATIO; HDL CHOLESTEROL 56.4 MG/DL (40.0-60.0); LDL CHOLESTEROL 93 MG/DL (0-99); TOTAL BILIRUBIN ADULT 0.4 MG/DL (0.2-1.0); TOTAL PROTEIN 7.1 GM/DL (6.4-8.2)
[2017-05-07 12:05] LABS: HEMOGLOBIN A1C 5.3 % (4.3-6.0)
[2017-05-07] MEDS: ALUMINUM/MAGNESIUM/SIMETH 30 ML CUP PO PRN (16:25)
[2017-05-07] MEDS: hydrOXYzine HCL 50 MG TAB PO PRN ×2 (16:25→23:00)
--- NOTE | 2017-05-07 16:50 | EKG ---
Date Performed: 05/07/2017 Time Performed: 10:32:56 PTAGE: 41 years EKG: SINUS TACHYCARDIA INCOMPLETE RIGHT BUNDLE BRANCH BLOCK ABNORMAL RHYTHM ECG PREVIOUS TRACING : 10/14/2016 11.23 Compared to prior tracing no significant change DOCTOR: Rashi Barrow Interpretating Date/Time 05/07/2017 16:49:26
[2017-05-07 18:08] VITALS: BP 108/70; PULSE 92; RESP 17; TEMP 98; O2SAT 95
[2017-05-07] MEDS ORDERED: ONDANSETRON ODT 4 MG TAB PO PRN (18:30)
[2017-05-07] MEDS: clonazePAM 1 MG TAB PO SCH (22:06)
[2017-05-08 06:08] VITALS: BP 112/59; PULSE 77; RESP 18; TEMP 97.9; O2SAT 95
--- NOTE | 2017-05-08 08:07 | HHI.PYPN ---
Subjective Remarks Patient seen in his room with nurse Kenzie, chart review patient compliant medication. Patient calm pleasant with us patient no behavioral problems. States she slept on his appetite is good. He states his mother is not feeling well right now. Continues little insight into his behaviors. For now continue treatment, Depakote level drawn on 05/07 was 31. We need to repeat this in 2 days once level gets to steady-state Review of Systems Except as stated in HPI: all other systems reviewed are Neg Mental Status Examination Appearance: Appropriate Consciousness: Alert Orientation: Person, Place, Date/Time Motor Activity: Normal gait Speech: Hesitant Language: Perseveration, Other Fund of Knowledge: Inadequate Attention and Concentration: Easily Distracted Memory: Impaired Mood: Oppositional Affect: Labile Thought Process & Associations: Other Thought Content: Bizarre thinking Hallucination Type: None Delusion Type: None Suicidal Ideation: No Suicidal Plan: No Suicidal Intention: No Homicidal Ideation: No Homicidal Plan: No Homicidal Intention: No Insight: Poor Judgment: Impulsive Results Labs Test 05/07/17 08:45 White Blood Count 9.2 TH/MM3 Red Blood Count 5.16 MIL/MM3 Hemoglobin 15.1 GM/DL Hematocrit 44.8 % Mean Corpuscular Volume 86.7 FL Mean Corpuscular Hemoglobin 29.2 PG Mean Corpuscular Hemoglobin Concent 33.7 % Red Cell Distribution Width 13.1 % Platelet Count 231 TH/MM3 Mean Platelet Volume 8.5 FL Neutrophils (%) (Auto) 87.3 % Lymphocytes (%) (Auto) 5.2 % Monocytes (%) (Auto) 7.0 % Eosinophils (%) (Auto) 0.5 % Basophils (%) (Auto) 0.0 % Neutrophils # (Auto) 8.0 TH/MM3 Lymphocytes # (Auto) 0.5 TH/MM3 Monocytes # (Auto) 0.6 TH/MM3 Eosinophils # (Auto) 0.0 TH/MM3 Basophils # (Auto) 0.0 TH/MM3 CBC Comment DIFF FINAL Differential Comment Blood Urea Nitrogen 20 MG/DL Creatinine 1.03 MG/DL Random Glucose 104 MG/DL Total Protein 7.1 GM/DL Albumin 4.0 GM/DL Calcium Level 8.5 MG/DL Alkaline Phosphatase 56 U/L Aspartate Amino Transf (AST/SGOT) 12 U/L Alanine Aminotransferase (ALT/SGPT) 21 U/L Total Bilirubin 0.4 MG/DL Sodium Level 138 MEQ/L Potassium Level 3.7 MEQ/L Chloride Level 103 MEQ/L Carbon Dioxide Level 25.2 MEQ/L Anion Gap 10 MEQ/L Estimat Glomerular Filtration Rate 80 ML/MIN Hemoglobin A1c 5.3 % Triglycerides Level 103 MG/DL Cholesterol Level 170 MG/DL LDL Cholesterol 93 MG/DL HDL Cholesterol 56.4 MG/DL Cholesterol/HDL Ratio 3.01 RATIO Vitamin B12 Level 254 PG/ML 25-Hydroxy Vitamin D Total 18.2 ng/ML Thyroid Stimulating Hormone 3rd Gen 0.359 uIU/ML Valproic Acid (Depakene) Level 31 MCG/ML Vitals/IOs Vital Signs Date Time Temp Pulse Resp B/P (MAP) Pulse Ox O2 Delivery O2 Flow Rate FiO2 05/08/17 06:08 97.9 77 18 112/59 (76) 95 05/06/17 12:13 Room Air Intake and Output 05/08/17 05/08/17 05/09/17 08:00 16:00 00:00 Intake Total 360 ml Balance 360 ml Assessment & Plan Problem List: (1) Intermittent explosive disorder ICD Codes: F63.81 - Intermittent explosive disorder Assessment & Plan Estimated LOS: days patient calm cooperative compliant with medications. Still little insight into his behaviors. For now continue treatment need to recheck Depakote blood level in a few days Justification for Cont. Inpt. At this time patient will decompensate if placed in the lower level of care Discharge Planning Probable return to family home Request HC Surrog/Guard Advoc?: Yes Gwyn Lassiter MD May 08, 2017 08:07
[2017-05-08] MEDS: FAMOTIDINE 20 MG TAB PO SCH (08:13)
[2017-05-08] MEDS: DIVALPROEX SODIUM E.R. 500 MG TAB PO SCH ×2 (08:13→20:43)
[2017-05-08] MEDS: LURASIDONE 40 MG TAB PO SCH ×2 (08:13→20:43)
[2017-05-08 17:26] VITALS: BP 111/59; PULSE 84; RESP 18; TEMP 98; O2SAT 96
[2017-05-08] MEDS: clonazePAM 1 MG TAB PO SCH (20:43)
[2017-05-08] MEDS: diphenhydrAMINE HCL 50 MG CAP PO PRN (20:43)
[2017-05-09] MEDS: LORazepam 1 MG TAB PO PRN (04:44)
[2017-05-09 06:08] VITALS: BP 100/54; PULSE 78; RESP 20; TEMP 97.9; O2SAT 97
[2017-05-09] MEDS: LURASIDONE 40 MG TAB PO SCH ×2 (08:25→20:35)
[2017-05-09] MEDS: FAMOTIDINE 20 MG TAB PO SCH (08:25)
[2017-05-09] MEDS: DIVALPROEX SODIUM E.R. 500 MG TAB PO SCH ×2 (08:25→20:35)
--- NOTE | 2017-05-09 11:05 | HHI.PYPN ---
Subjective Remarks Patient very agitated and threatening when he discovered his mother would not take him home yesterday. Still not sleeping well. Review of Systems Psychiatric: COMPLAINS OF: Anxiety, Mood changes Except as stated in HPI: all other systems reviewed are Neg Mental Status Examination Appearance: Appropriate Consciousness: Alert Orientation: Person, Place, Date/Time Motor Activity: Normal gait Speech: Hesitant Language: Perseveration, Other Fund of Knowledge: Inadequate Attention and Concentration: Easily Distracted Memory: Impaired Mood: Oppositional Affect: Labile Thought Process & Associations: Other Thought Content: Bizarre thinking Hallucination Type: None Delusion Type: None Suicidal Ideation: No Suicidal Plan: No Suicidal Intention: No Homicidal Ideation: No Homicidal Plan: No Homicidal Intention: No Insight: Poor Judgment: Impulsive Results Vitals/IOs Vital Signs Date Time Temp Pulse Resp B/P (MAP) Pulse Ox O2 Delivery O2 Flow Rate FiO2 05/09/17 06:08 97.9 78 20 100/54 (69) 97 05/06/17 12:13 Room Air Intake and Output 05/09/17 05/09/17 05/10/17 08:00 16:00 00:00 Intake Total 360 ml Balance 360 ml Assessment & Plan Problem List: (1) Intermittent explosive disorder ICD Codes: F63.81 - Intermittent explosive disorder Assessment & Plan Estimated LOS: days this physician started Thorazine 100 mg by mouth daily at bedtime for its soporific effects, anti-anxiety effects and hopeful behavioral stabilization. Justification for Cont. Inpt. Patient still represents a danger to himself and others. We'll evaluate new medication, Thorazine at bedtime. Request HC Surrog/Guard Advoc?: Yes John Maier MD May 09, 2017 11:05
[2017-05-09] MEDS: hydrOXYzine HCL 50 MG TAB PO PRN (14:30)
[2017-05-09 18:00] VITALS: BP 127/71; PULSE 88; RESP 18; TEMP 97.6; O2SAT 97
[2017-05-09] MEDS: clonazePAM 1 MG TAB PO SCH (20:35)
[2017-05-10 06:21] VITALS: BP 112/96; PULSE 104; RESP 16; TEMP 97.5; O2SAT 96
--- NOTE | 2017-05-10 08:19 | HHI.PYPN ---
Subjective Remarks Patient seen for follow-up, chart review. Patient is found walking the hallway to be somewhat disheveled slightly irritable interview today. Patient states that "I got sick", was able to her expand on events that occurred after his last hospitalization and prior to his recent admission. Patient states that he has been sleeping prior to coming to the hospital stated that he had been compliant with medications although valproic acid level was subtherapeutic initially. Patient states that he slept well last night after the addition of the new medication (Thorazine 100 mg daily at bedtime). Patient reports hitting drinking well, no problems with bowel movements states that his mood is "very well", denies any perceptual disturbances or delusions at this time. Review of Systems Except as stated in HPI: all other systems reviewed are Neg Mental Status Examination Appearance: Disheveled Consciousness: Alert Orientation: Person, Place, Date/Time Motor Activity: Normal gait Speech: Hesitant Language: Perseveration, Other Fund of Knowledge: Inadequate Attention and Concentration: Easily Distracted Memory: Impaired Mood: Irritable Affect: Irritable Thought Process & Associations: Other (concrete) Thought Content: Bizarre thinking Hallucination Type: None Delusion Type: None Suicidal Ideation: No Suicidal Plan: No Suicidal Intention: No Homicidal Ideation: No Homicidal Plan: No Homicidal Intention: No Insight: Poor Judgment: Impulsive Results Labs Labs reviewed Test 05/10/17 07:08 Valproic Acid (Depakene) Level 90 MCG/ML Vitals/IOs Vital Signs Date Time Temp Pulse Resp B/P (MAP) Pulse Ox O2 Delivery O2 Flow Rate FiO2 05/10/17 06:21 97.5 104 16 112/96 (101) 96 05/06/17 12:13 Room Air Assessment & Plan Problem List: (1) Intermittent explosive disorder ICD Codes: F63.81 - Intermittent explosive disorder Assessment & Plan Patient at this time noted to be slightly irritable but cooperative and noted to have pressured speech at this time. We'll continue current treatment for now , valproic acid level was within therapeutic range (90.0). Continue to monitor mood and behavior. Collateral information pending. Discharge planning in progress Justification for Cont. Inpt. At risk for further decompensation if at lower level of care Discharge Planning Patient return back to his mother's residence once psychiatric stable Request HC Surrog/Guard Advoc?: Yes Jefferson Wolfe MD May 10, 2017 08:19
[2017-05-10] MEDS: LURASIDONE 40 MG TAB PO SCH ×2 (09:23→20:45)
[2017-05-10] MEDS: DIVALPROEX SODIUM E.R. 250 MG TAB PO SCH ×2 (09:23→20:46)
[2017-05-10] MEDS: FAMOTIDINE 20 MG TAB PO SCH (09:23)
[2017-05-10] MEDS ORDERED: LURA40 PO (13:17)
[2017-05-10] MEDS ORDERED: CLON1 PO (13:17)
[2017-05-10] MEDS ORDERED: DEPA500T3 PO (13:17)
[2017-05-10] MEDS ORDERED: PROP10TA6 PO (13:17)
[2017-05-10] MEDS ORDERED: FAMO20TA2 PO (13:17)
[2017-05-10 18:00] VITALS: BP 132/62; PULSE 90; RESP 18; TEMP 97.9; O2SAT 99
[2017-05-10] MEDS: clonazePAM 1 MG TAB PO SCH (20:46)
[2017-05-11] MEDS: hydrOXYzine HCL 50 MG TAB PO PRN (05:56)
[2017-05-11 06:00] VITALS: BP 122/65; PULSE 96; RESP 17; TEMP 98.1; O2SAT 94
[2017-05-11] MEDS: FAMOTIDINE 20 MG TAB PO SCH (09:09)
[2017-05-11] MEDS: DIVALPROEX SODIUM E.R. 250 MG TAB PO SCH ×2 (09:09→21:46)
[2017-05-11] MEDS: LURASIDONE 40 MG TAB PO SCH ×2 (09:09→21:46)
[2017-05-11 18:20] VITALS: BP 124/69; PULSE 100; RESP 16; TEMP 98.1; O2SAT 97
--- NOTE | 2017-05-11 20:36 | HHI.PYPN ---
Subjective Remarks Patient seen for follow up; chart reviewed. Discussion with nursing staff reported that the patient doing well today, less demanding, less confused, showered today, slept well overnight but was noted to have pushed a behavioral tech this morning. Patient was found walking on the unit, calm and cooperative with interview. Patient noted to have some thought blocking, stating that he is feeling "good", sleeping well, no physical complaints at this time. He reports attending groups and activities. He denies any AVH or delusions. Review of Systems Except as stated in HPI: all other systems reviewed are Neg Mental Status Examination Appearance: Disheveled Consciousness: Alert Orientation: Person, Place, Date/Time Motor Activity: Normal gait Speech: Hesitant Language: Perseveration, Other Fund of Knowledge: Inadequate Attention and Concentration: Easily Distracted Memory: Impaired Mood: Other ("good") Affect: Blunt Thought Process & Associations: Other (concrete) Thought Content: Thought blocking (at times) Hallucination Type: None Delusion Type: None Suicidal Ideation: No Suicidal Plan: No Suicidal Intention: No Homicidal Ideation: No Homicidal Plan: No Homicidal Intention: No Insight: Poor Judgment: Impulsive Results Vitals/IOs Vital Signs Date Time Temp Pulse Resp B/P (MAP) Pulse Ox O2 Delivery O2 Flow Rate FiO2 05/11/17 18:20 98.1 100 16 124/69 (87) 97 Assessment & Plan Problem List: (1) Intermittent explosive disorder ICD Codes: F63.81 - Intermittent explosive disorder Assessment & Plan Patient to continue current treatment for now, noted to have some thought blocking. He has not had any behavioral issues or episodes of agitation. Will have mother visit and inquire if she sees patient back to baseline prior to discharge. Discharge planning in progress. Justification for Cont. Inpt. At risk for further decompensation if at lower level of care. Request HC Surrog/Guard Advoc?: Yes Jefferson Wolfe MD May 11, 2017 20:36
[2017-05-11] MEDS: clonazePAM 1 MG TAB PO SCH (21:46)
[2017-05-12 06:00] VITALS: BP 122/65; PULSE 113; RESP 18; TEMP 97.8; O2SAT 95
[2017-05-12] MEDS: DIVALPROEX SODIUM E.R. 250 MG TAB PO SCH ×2 (08:51→20:16)
[2017-05-12] MEDS: FAMOTIDINE 20 MG TAB PO SCH (08:51)
[2017-05-12] MEDS: hydrOXYzine HCL 50 MG TAB PO PRN (08:51)
[2017-05-12] MEDS: LURASIDONE 40 MG TAB PO SCH ×2 (08:51→20:16)
--- NOTE | 2017-05-12 14:42 | PD.TTN ---
Patient Problems 1. Discharge planning 2. Medication compliance 3. Knowledge deficit 4. Lack of coping skills Progress Toward Goals Provider Present: Dr. Joycelyn Wolfe Provider Input: Patient is continuing to be monitored on the unit. Patient is compliant with medications and Nurse(s) Input: Patient has been compliant with medications and has not shown significant behavioral issues. Patient was confused and disoriented but is redirectable. Psychiatric Counselors Present: NOÉ Knott Psych Therapist Input: Patient will return to reside with mother once patient is stablized. Patient continues to be montiored on the unit and has not shown significant behavioral issues. Group Spec/RT/OT/MONTALVO Present: Taco Tran OT Group Spec/RT/OT/MONTALVO Input: Patient participates in some groups. Discharge Plan Patient will return home to mother once stablized. Stephanie David [facility] May 12, 2017 14:42
--- NOTE | 2017-05-12 15:36 | HHI.PYPN ---
Subjective Remarks Patient seen for follow-up, chart reviewed. Discussion she staff reported the patient noted to have speech delay, slow response to questioning, with poverty of thought at this time. Patient was found walking in the hallway was able to participate in interview but was noted to be lethargic which patient noted to be nodding off and had to be redirected back to his room. Patient states that he is feeling "okay" but noted to be very sedated during interview and having difficulty with fibrillation of thoughts. Patient noted to have some speech latency as well. It is likely patient to be spirits in sedation from current treatment regimen. Patient reports having attended groups. In he also reports having spoken to his mother but was able to recall details from the conversation. Collateral information from patient's mother: She stated that patient was noted to be very lethargic and unable to interact effectively during her visit stating that patient could not recall previous conversations nor count adequately. She states that she is concerned that this thinking process is slowed down due to medications but is glad the patient has been sleeping. Review of Systems Except as stated in HPI: all other systems reviewed are Neg Mental Status Examination Appearance: Disheveled Consciousness: Alert Orientation: Person, Place, Date/Time Motor Activity: Normal gait Speech: Hesitant, Slow Language: Other Fund of Knowledge: Inadequate Attention and Concentration: Inadequate Memory: Impaired Mood: Other ("good") Affect: Blunt, Other (noted to be too lethargic) Thought Process & Associations: Other (concrete) Thought Content: Other (concrete) Hallucination Type: None Delusion Type: None Suicidal Ideation: No Suicidal Plan: No Suicidal Intention: No Homicidal Ideation: No Homicidal Plan: No Homicidal Intention: No Insight: Poor Judgment: Impulsive Results Vitals/IOs Vital Signs Date Time Temp Pulse Resp B/P (MAP) Pulse Ox O2 Delivery O2 Flow Rate FiO2 05/12/17 06:00 97.8 113 18 122/65 (23) 95 Assessment & Plan Problem List: (1) Intermittent explosive disorder ICD Codes: F63.81 - Intermittent explosive disorder Assessment & Plan Patient this time noted to be too sedated to effectively interact with interview. Will decrease Thorazine to 50 mg by mouth at bedtime, decrease clonazepam to 1 mg at bedtime continue rest of medications. Continue to monitor mood and behavior. Continue to monitor for with a psychotic hypotension. Discharge planning in progress Justification for Cont. Inpt. At risk for further decompensation if at lower level of care Discharge Planning Patient to return back to his mother's residence once psychiatrically stable. Request HC Surrog/Guard Advoc?: Yes Jefferson Wolfe MD May 12, 2017 15:36
[2017-05-12 17:06] VITALS: BP 134/74; PULSE 97; RESP 18; TEMP 97.6; O2SAT 96
[2017-05-12] MEDS ORDERED: clonazePAM 1 MG TAB PO SCH (21:00)
[2017-05-13 05:42] VITALS: BP 141/73; PULSE 82; RESP 16; TEMP 97.4; O2SAT 98
[2017-05-13] MEDS: FAMOTIDINE 20 MG TAB PO SCH (09:52)
[2017-05-13] MEDS: DIVALPROEX SODIUM E.R. 250 MG TAB PO SCH ×2 (09:53→21:43)
[2017-05-13] MEDS: LURASIDONE 40 MG TAB PO SCH ×2 (09:53→21:43)
--- NOTE | 2017-05-13 15:02 | EKG ---
Date Performed: 05/12/2017 Time Performed: 13:00:02 PTAGE: 42 years EKG: SINUS TACHYCARDIA INCOMPLETE RIGHT BUNDLE BRANCH BLOCK Since previous tracing, no significa nt change noted ABNORMAL RHYTHM ECG PREVIOUS TRACING : 05/07/2017 10.32 DOCTOR: Wilmar Robledo Interpretating Date/Time 05/13/2017 14:59:59
--- NOTE | 2017-05-13 16:16 | HHI.PYPN ---
Subjective Remarks Patient seen for follow-up, chart reviewed. Discussion with nursing staff reported that the patient has not been noted to be irritable, feeling better but later in the day was found to have defecated on the floor to his room. Patient was found sitting in the day room after having showered and states that he had an accident in his room and that he did not make it to the bathroom. He reports that this has never happened before. He states that he is feeling better and no longer feeling sick. He continues to have some delay in response but more reactive today. Review of Systems Except as stated in HPI: all other systems reviewed are Neg Mental Status Examination Appearance: Disheveled Consciousness: Alert Orientation: Person, Place, Date/Time Motor Activity: Normal gait Speech: Hesitant, Slow Language: Other Fund of Knowledge: Inadequate Attention and Concentration: Inadequate Memory: Impaired Mood: Other ("ok") Affect: Blunt, Other (guarded) Thought Process & Associations: Other (concrete) Thought Content: Other (concrete) Hallucination Type: None Delusion Type: None Suicidal Ideation: No Suicidal Plan: No Suicidal Intention: No Homicidal Ideation: No Homicidal Plan: No Homicidal Intention: No Insight: Poor Judgment: Impulsive Results Vitals/IOs Vital Signs Date Time Temp Pulse Resp B/P (MAP) Pulse Ox O2 Delivery O2 Flow Rate FiO2 05/13/17 05:42 97.4 82 16 141/73 (95) 98 Intake and Output 05/13/17 05/13/17 05/14/17 08:00 16:00 00:00 Intake Total 1800 ml Balance 1800 ml Assessment & Plan Problem List: (1) Intermittent explosive disorder ICD Codes: F63.81 - Intermittent explosive disorder Assessment & Plan Patient continues to be noted to be concrete, not elaborating much. Patient noted to be more reactive but continues with some degree of lethargy. Will decrease thorazine to 25mg PO HS and decrease clonazepam to 0.5mg PO HS, continue rest of medications. Labs ordered for tomorrow AM. (CBC, BMP, VPA level). Encourage and assist patient in maintenance of hygiene and participation in groups and activities. Discharge planning in progress. Justification for Cont. Inpt. At risk for further decompensation at lower level of care. Discharge Planning To be discharge back to mother's residence once psychiatrically stable. Request HC Surrog/Guard Advoc?: Yes Jefferson Wolfe MD May 13, 2017 16:16
[2017-05-13] MEDS ORDERED: PILL SPLITTER OTHER PRN (17:00)
[2017-05-13 18:00] VITALS: BP 138/70; PULSE 94; RESP 17; TEMP 98.4; O2SAT 99
[2017-05-13] MEDS: clonazePAM 0.5 MG TAB PO SCH (21:45)
[2017-05-14 06:31] VITALS: BP 107/58; PULSE 80; RESP 16; TEMP 97.6; O2SAT 98
[2017-05-14] MEDS: FAMOTIDINE 20 MG TAB PO SCH (08:46)
[2017-05-14] MEDS: LURASIDONE 40 MG TAB PO SCH ×2 (08:46→20:32)
[2017-05-14] MEDS: DIVALPROEX SODIUM E.R. 250 MG TAB PO SCH ×3 (08:47→20:25)
[2017-05-14 09:31] LABS: AUTOMATED NEUTROPHIL # 2.6 TH/MM3 (1.8-7.7); BASOPHIL % 0.3 % (0.0-2.0); EOSINOPHIL % 0.8 % (0.0-4.0); LYMPH % 30.2 % (9.0-44.0); LYMPHOCYTE # 1.3 TH/MM3 (1.0-4.8); MEAN CELL VOLUME 85.6 FL (80.0-100.0); MEAN CORPUSCULAR HEMOGLOBIN 30.6 PG (27.0-34.0); MEAN CORPUSCULAR HGB CONC 35.7 % (32.0-36.0); MEAN PLATELET VOLUME 8.2 FL (7.0-11.0); MONO % 9.5 % (0.0-8.0); MONOCYTE # 0.4 TH/MM3 (0-0.9); NEUT % 59.2 % (16.0-70.0); PLATELET COUNT 262 TH/MM3 (150-450); RED CELL DISTRIBUTION WIDTH 12.9 % (11.6-17.2); WHITE BLOOD COUNT 4.4 TH/MM3 (4.0-11.0)
[2017-05-14 09:52] LABS: BICARBONATE 28.2 MEQ/L (21.0-32.0); CALCIUM 8.8 MG/DL (8.5-10.1); CREATININE 0.99 MG/DL (0.60-1.30)
[2017-05-14] MEDS ORDERED: BENZTROPINE MESYLATE 1 MG TAB PO ONE (17:30)
[2017-05-14 18:00] VITALS: BP 109/57; PULSE 89; RESP 18; TEMP 98; O2SAT 97
--- NOTE | 2017-05-14 19:38 | HHI.PYPN ---
Subjective Remarks Pt seen and discussed with staff. Thorazine was decreased yesterday due to lethargy. He remains sedated and lethargic and RNs express concern over pt's shuffling gait. On exam, pt is found to have cogwheeling in upper extremities. No oculogyric movements or dystonia present. Staff report that pt has been anxious and mildly agitated. Depakote level is 118 and he has a fine tremor. No SI/HI Mental Status Examination Appearance: Disheveled Consciousness: Alert Orientation: Person, Place, Date/Time Motor Activity: Abnormal gait (shuffling bradykinetic) Speech: Hesitant, Slow Language: Other Fund of Knowledge: Inadequate Attention and Concentration: Inadequate Memory: Impaired Mood: Other ("ok") Affect: Blunt, Other (guarded) Thought Process & Associations: Other (concrete) Thought Content: Other (concrete) Hallucination Type: None Delusion Type: None Suicidal Ideation: No Suicidal Plan: No Suicidal Intention: No Homicidal Ideation: No Homicidal Plan: No Homicidal Intention: No Insight: Poor Judgment: Impulsive Results Labs Test 05/14/17 08:30 White Blood Count 4.4 TH/MM3 Red Blood Count 4.90 MIL/MM3 Hemoglobin 15.0 GM/DL Hematocrit 42.0 % Mean Corpuscular Volume 85.6 FL Mean Corpuscular Hemoglobin 30.6 PG Mean Corpuscular Hemoglobin Concent 35.7 % Red Cell Distribution Width 12.9 % Platelet Count 262 TH/MM3 Mean Platelet Volume 8.2 FL Neutrophils (%) (Auto) 59.2 % Lymphocytes (%) (Auto) 30.2 % Monocytes (%) (Auto) 9.5 % Eosinophils (%) (Auto) 0.8 % Basophils (%) (Auto) 0.3 % Neutrophils # (Auto) 2.6 TH/MM3 Lymphocytes # (Auto) 1.3 TH/MM3 Monocytes # (Auto) 0.4 TH/MM3 Eosinophils # (Auto) 0.0 TH/MM3 Basophils # (Auto) 0.0 TH/MM3 CBC Comment DIFF FINAL Differential Comment Blood Urea Nitrogen 14 MG/DL Creatinine 0.99 MG/DL Random Glucose 162 MG/DL Calcium Level 8.8 MG/DL Sodium Level 138 MEQ/L Potassium Level 3.5 MEQ/L Chloride Level 100 MEQ/L Carbon Dioxide Level 28.2 MEQ/L Anion Gap 10 MEQ/L Estimat Glomerular Filtration Rate 83 ML/MIN Valproic Acid (Depakene) Level 118 MCG/ML Vitals/IOs Vital Signs Date Time Temp Pulse Resp B/P (MAP) Pulse Ox O2 Delivery O2 Flow Rate FiO2 05/14/17 18:00 98.0 89 18 109/57 (74) 97 Intake and Output 05/14/17 05/14/17 05/15/17 08:00 16:00 00:00 Intake Total 480 ml 240 ml Balance 480 ml 240 ml Assessment & Plan Problem List: (1) Intermittent explosive disorder ICD Codes: F63.81 - Intermittent explosive disorder Assessment & Plan Will stop thorazine due to sedation and EPS. Cogentin given for EPS. Continue Latuda. Hold Depakote HS and Recheck depakote level in AM. Lower depakote dose to 750 total daily dose. Estimated LOS: days Justification for Cont. Inpt. medication changes requiring observation Request HC Surrog/Guard Advoc?: Yes Kina Esposito MD May 14, 2017 19:38
[2017-05-14] MEDS: diphenhydrAMINE HCL 50 MG CAP PO PRN (20:32)
[2017-05-14] MEDS: clonazePAM 0.5 MG TAB PO SCH (20:32)
[2017-05-14] MEDS: BENZTROPINE MESYLATE 1 MG TAB PO SCH (20:32)
[2017-05-14] MEDS ORDERED: chlorproMAZINE HCL 25 MG TAB PO SCH (21:00)
[2017-05-14] MEDS ORDERED: BENZTROPINE MESYLATE 1 MG TAB PO SCH (21:00)
[2017-05-15] MEDS: DIVALPROEX SODIUM E.R. 500 MG TAB PO SCH (08:54)
[2017-05-15] MEDS: LURASIDONE 40 MG TAB PO SCH (08:55)
[2017-05-15] MEDS: BENZTROPINE MESYLATE 1 MG TAB PO SCH ×2 (08:55→21:59)
[2017-05-15] MEDS: FAMOTIDINE 20 MG TAB PO SCH (08:55)
[2017-05-15 09:00] VITALS: BP 119/62; PULSE 95
--- NOTE | 2017-05-15 13:13 | HHI.PYPN ---
Subjective Remarks Pt seen and discussed with staff. Pt is more alert today and has been less anxious and agitated. Cogwheeling and stiffness in UE is decreased, but still present. Pt states that he feels better and staff report that he has been cooperative and pleasant today. No aggression. Mental Status Examination Appearance: Disheveled Consciousness: Alert Orientation: Person, Place, Date/Time Motor Activity: Abnormal gait (mild shuffling, improved compared with yesterday ) Speech: Hesitant, Slow Language: Other Fund of Knowledge: Inadequate Attention and Concentration: Inadequate Memory: Impaired Mood: Other ("ok") Affect: Blunt, Other (guarded) Thought Process & Associations: Other (concrete) Thought Content: Other (concrete) Hallucination Type: None Delusion Type: None Suicidal Ideation: No Suicidal Plan: No Suicidal Intention: No Homicidal Ideation: No Homicidal Plan: No Homicidal Intention: No Insight: Poor Judgment: Impulsive Results Labs Test 05/15/17 07:15 Valproic Acid (Depakene) Level 77 MCG/ML Vitals/IOs Vital Signs Date Time Temp Pulse Resp B/P (MAP) Pulse Ox O2 Delivery O2 Flow Rate FiO2 05/15/17 09:00 95 119/62 (81) 05/14/17 18:00 98.0 18 97 Intake and Output 05/15/17 05/15/17 05/16/17 08:00 16:00 00:00 Intake Total 360 ml 240 ml Balance 360 ml 240 ml Assessment & Plan Problem List: (1) Intermittent explosive disorder ICD Codes: F63.81 - Intermittent explosive disorder Assessment & Plan Will lower latuda to 40mg PO Qdaily with 350 calories due to EPS. will increase cogentin. PT improving. Will check ck. VPA 77. Will continue lowered dose. Estimated LOS: days Justification for Cont. Inpt. complicating medical condition. Request HC Surrog/Guard Advoc?: Yes Kina Esposito MD May 15, 2017 13:13
[2017-05-15] MEDS ORDERED: BENZTROPINE MESYLATE 1 MG TAB PO ONE (13:15)
[2017-05-15] MEDS ORDERED: BENZTROPINE MESYLATE 1 MG TAB PO PRN (13:15)
[2017-05-15 18:14] VITALS: BP 118/60; PULSE 92; RESP 16; TEMP 98.6; O2SAT 94
[2017-05-15] MEDS: clonazePAM 0.5 MG TAB PO SCH (21:59)
[2017-05-15] MEDS: DIVALPROEX SODIUM E.R. 250 MG TAB PO SCH (21:59)
[2017-05-16 06:19] VITALS: BP 113/65; PULSE 88; RESP 18; TEMP 97.8; O2SAT 96
[2017-05-16] MEDS: DIVALPROEX SODIUM E.R. 500 MG TAB PO SCH ×2 (09:10→22:48)
[2017-05-16] MEDS: BENZTROPINE MESYLATE 1 MG TAB PO SCH ×2 (09:10→22:48)
[2017-05-16] MEDS: LURASIDONE 40 MG TAB PO SCH (09:11)
[2017-05-16] MEDS: FAMOTIDINE 20 MG TAB PO SCH (09:11)
--- NOTE | 2017-05-16 10:04 | HHI.PYPN ---
Subjective Remarks I have seen and examined this patient, reviewed the documentation, review the notes of the weekend rounder, discussed the case with nursing charge. On psychiatric evaluation patient is found in his breakfast, he reports feeling much better, a little be confused, oriented in place and person, disoriented in time, in general calm, cooperative. He reports good mood, good sleep, level of energy and concentration, denies suicidal and homicidal ideation, he denies visual and auditory hallucinations. A little bit stiff and tremulous. He has been compliant with his medications, decreased severity of EPS compare with initial presentation. No agitation or aggressive behavior reported. Review of Systems Neurologic: COMPLAINS OF: Tremor, Poor Balance Except as stated in HPI: all other systems reviewed are Neg Mental Status Examination Appearance: Appropriate Consciousness: Alert Orientation: Person, Place, Date/Time Motor Activity: Abnormal gait (mild shuffling, improved compared with yesterday ) Speech: Hesitant, Slow Language: Adequate Fund of Knowledge: Inadequate Attention and Concentration: Inadequate Memory: Impaired Mood: Other ("ok") Affect: Blunt, Other (guarded) Thought Process & Associations: Other (concrete) Thought Content: Appropriate Hallucination Type: None Delusion Type: None Suicidal Ideation: No Suicidal Plan: No Suicidal Intention: No Homicidal Ideation: No Homicidal Plan: No Homicidal Intention: No Insight: Fair Judgment: Adequate Results Labs Test 05/15/17 14:44 Total Creatine Kinase 979 U/L Creatine Kinase MB 3.6 NG/ML Creatine Kinase MB % 0.4 % Vitals/IOs Vital Signs Date Time Temp Pulse Resp B/P (MAP) Pulse Ox O2 Delivery O2 Flow Rate FiO2 05/16/17 06:19 97.8 88 18 113/65 (81) 96 Intake and Output 05/16/17 05/16/17 05/17/17 08:00 16:00 00:00 Intake Total 240 ml 480 ml Balance 240 ml 480 ml Assessment & Plan Problem List: (1) Intermittent explosive disorder ICD Codes: F63.81 - Intermittent explosive disorder (2) Extrapyramidal syndrome ICD Codes: G25.9 - Extrapyramidal and movement disorder, unspecified Status: Acute Assessment & Plan: Patient presents improvement in behavior. Continue to be a little bit confused and with mild EPS. We will increase Depakote to 500 mg twice a day. Order Depakote levels. Also will order CPK. Increase clonazepam to 0.5 twice a day to help with EPS. Assessment & Plan Estimated LOS: days Justification for Cont. Inpt. Patient has an very elevated risk of decompensation at a lower level of care. Request HC Surrog/Guard Advoc?: Yes Hugo Monique MD May 16, 2017 10:04
[2017-05-16 18:00] VITALS: BP 133/62; PULSE 84; RESP 17; TEMP 98.1; O2SAT 96
[2017-05-16] MEDS: hydrOXYzine HCL 50 MG TAB PO PRN (20:00)
[2017-05-16] MEDS: diphenhydrAMINE HCL 50 MG CAP PO PRN (22:48)
[2017-05-16] MEDS: clonazePAM 0.5 MG TAB PO SCH (22:48)
[2017-05-17] MEDS: LORazepam 1 MG TAB PO PRN (02:19)
[2017-05-17 06:15] VITALS: BP 122/67; PULSE 84; RESP 16; TEMP 97.3; O2SAT 97
[2017-05-17] MEDS: PROPRANOLOL HCL 10 MG TAB PO SCH ×3 (10:00→21:11)
--- NOTE | 2017-05-17 10:16 | HHI.PYPN ---
Subjective Remarks Patient is a follow, chart reviewed. Discussion she staff reported the patient did receive Ativan 1 by mouth last evening but slept. Patient was found pacing the hallway unable to sit throughout interview Getting up and walking around him to be restless. Patient states that he is feeling "good" and reports having slept well last evening tolerating medications well. She reports they've been visited by his mother over the weekend which went well. When asked if patient is feeling slightly more restless than usual he says yes. Patient denies any perceptual disturbances or delusions at this time. Patient noted to be more alert and engaging in interview compared to previous encounters. Review of Systems Except as stated in HPI: all other systems reviewed are Neg Mental Status Examination Appearance: Appropriate Consciousness: Alert Orientation: Person, Place, Date/Time Motor Activity: Abnormal gait (mild shuffling, improved compared with yesterday ) Speech: Hesitant, Slow Language: Adequate Fund of Knowledge: Inadequate Attention and Concentration: Inadequate Memory: Impaired Mood: Other ("good") Affect: Blunt, Other (less guarded today) Thought Process & Associations: Other (concrete) Thought Content: Appropriate Hallucination Type: None Delusion Type: None Suicidal Ideation: No Suicidal Plan: No Suicidal Intention: No Homicidal Ideation: No Homicidal Plan: No Homicidal Intention: No Insight: Fair Judgment: Adequate Results Labs Labs reviewed Test 05/16/17 11:12 Total Creatine Kinase 953 U/L Creatine Kinase MB 3.7 NG/ML Creatine Kinase MB % 0.4 % Valproic Acid (Depakene) Level 81 MCG/ML Vitals/IOs Vital Signs Date Time Temp Pulse Resp B/P (MAP) Pulse Ox O2 Delivery O2 Flow Rate FiO2 05/17/17 06:15 97.3 84 16 122/67 (85) 97 Intake and Output 05/17/17 05/17/17 05/18/17 08:00 16:00 00:00 Intake Total 120 ml Balance 120 ml Assessment & Plan Problem List: (1) Intermittent explosive disorder ICD Codes: F63.81 - Intermittent explosive disorder (2) Extrapyramidal syndrome ICD Codes: G25.9 - Extrapyramidal and movement disorder, unspecified Status: Acute Assessment & Plan Patient this time noted to have improved interaction during interview noted to be sedated at alert and engaging. Patient noted to have likely akathisia secondary to psychotropic medications. Depakote levels within therapeutic limits. We'll start propranolol 10 mg by mouth 3 times a day for akathisia. Continue with the medications. Patient noted to have elevated CK on lab, will order Hospital consult for recommendations. Discharge planning in progress Justification for Cont. Inpt. At risk for further decompensation at lower level of care Discharge Planning To return back to mother's residence when psychiatrically stable Request HC Surrog/Guard Advoc?: Yes Jefferson Wolfe MD May 17, 2017 10:16
[2017-05-17] MEDS: FAMOTIDINE 20 MG TAB PO SCH (10:32)
[2017-05-17] MEDS: clonazePAM 0.5 MG TAB PO SCH ×2 (10:32→21:00)
[2017-05-17] MEDS: BENZTROPINE MESYLATE 1 MG TAB PO SCH ×2 (10:32→21:12)
[2017-05-17] MEDS: DIVALPROEX SODIUM E.R. 500 MG TAB PO SCH ×2 (10:32→21:13)
[2017-05-17] MEDS: LURASIDONE 40 MG TAB PO SCH (10:32)
--- NOTE | 2017-05-17 12:08 | PD.CONS ---
HPI Service [facility] Consult Requested By Reason for Consult Patient with Autism, intermittent explosive disorder, currently with elevated CK level 953. Primary Care Physician Thomas Crawford MD Diagnoses: (1) Intermittent explosive disorder (2) Autism spectrum disorder (3) Elevated creatine kinase level History of Present Illness 42-year old male with PMH significant for autism currently admitted in Medical psychiatric unit due to intermittent explosive disorder. He is a poor historian due to his autism, he is seen and examined in his room sitting up on side of bed eating lunch. He denies chest pain, SOB, cough or chest pain or pressure. He denies muscle aches, headache, fever, chills, nausea or vomiting. He repots he had one episode of vomiting but no more since then. Asked about his past medical history and states the only thing is back pain but repots "that is betting better now". Call placed to mother to discuss Mr. Butts, she states that his episode of rhabdomyolysis in 2016 was due to IM injections of Abilify. She states that this latest hospitalization was due to insomnia. She tells me that she patient was going 3 days without sleeping, she also felt that he was making unsafe decisions. Even when at work in [employer] she tells me he was leaving his designated workstation and walking out into the parking lot in front of traffic. She believes that the reason why his lab work has been elevated was due to the recent trial of Thorazine. She denies any recent falls or trauma to patient, no IM injections. Spent time discussing with the mother plan to rehydrate and recheck lab work tomorrow. She was pleased and is happy to know that the medical team is also following. She is also asking for a work note as patient has been absent from work for several days now. Review of Systems Except as stated in HPI: all other systems reviewed are Neg Past Family Social History Allergies: Coded Allergies: risperidone (Unverified Allergy, Severe, "CAN'T MOVE", 04/21/17) aripiprazole (Unverified Allergy, Intermediate, 04/21/17) Uncoded Allergies: abilify maintena (Adverse Reaction, Severe, 06/24/16) Past Medical History Autism spectrum with intermittent explosive disorder Anxiety Back pain Past Surgical History none Reported Medications Reported Meds & Active Scripts Active Quetiapine (Quetiapine Fumarate) 300 Mg Tab 300 Mg PO TID 30 Days Ranitidine (Ranitidine HCl) 150 Mg Tab 150 Mg PO DAILY Active Ordered Medications Inpatient Medications Acetaminophen (Tylenol) 650 mg Q4H PRN PO Pain 1-5 or Temp >101F Last administered on 05/07/17 10:07; Start 05/06/17 at 12:30 Al Hydrox/Mg Hydrox/Simethicone (Mag-Al Plus Susp Liq) 30 ml Q6H PRN PO DYSPEPSIA Last administered on 05/07/17 16:25; Start 05/06/17 at 12:30 Benztropine Mesylate (Cogentin) 1 mg Q8HR PRN PO Extrapyramidal symptoms; Start 05/15/17 at 13:15 Chlorpromazine (Thorazine) 25 mg HS PO ; Start 05/14/17 at 21:00; Stop at 21:00; Status DC Clonazepam (KlonoPIN) 0.5 mg BID PO Last administered on 05/17/17 10:32; Start 05/16/17 at 21:00 Diphenhydramine HCl (Benadryl Inj) 50 mg Q6H PRN IM For mild anxiety and/or EPS Last administered on 05/15/17 04:41; Start 05/06/17 at 12:30 Diphenhydramine HCl (Benadryl) 50 mg Q6H PRN PO For mild anxiety and/or EPS Last administered on 05/16/17 22:48; Start 05/06/17 at 12:30 Divalproex Sodium (Depakote Er) 500 mg BID PO Last administered on 05/17/17 10: 32; Start 05/16/17 at 21:00 Famotidine (Pepcid) 20 mg DAILY PO Last administered on 05/17/17 10:32; Start 05/06/17 at 12:45 Hydroxyzine HCl (Atarax) 50 mg Q6H PRN PO ANXIETY Last administered on 20:00; Start 05/07/17 at 08:00 Lorazepam (Ativan Inj) 1 mg Q6H PRN IM MODERATE TO SEVERE ANXIETY Last administered on 05/14/17 21:20; Start 05/06/17 at 12:30 Lorazepam (Ativan) 1 mg Q6H PRN PO MODERATE TO SEVERE ANXIETY Last administered on 05/17/17at 02:19; Start 05/06/17 at 12:30 Lurasidone HCl (Latuda) 40 mg DAILY PO Last administered on 05/17/17at 10:32; Start 05/16/17 at 09:00 Magnesium Hydroxide (Milk Of Magnesia Liq) 30 ml DAILY PRN PO CONSTIPATION; Start 05/06/17 at 12:30 Miscellaneous (Pill Splitter) 1 ea UNSCH PRN OTHER SEE LABEL COMMENTS; Start 05/13/17 at 17:00 Ondansetron HCl (Zofran Odt) 4 mg Q6H PRN PO NAUSEA OR VOMITING Last administered on 05/07/17t 18:30; Start 05/07/17 at 18:30 Propranolol HCl (Inderal) 10 mg Q8HR PO ; Start 05/17/17 at 10:00 Family History maternal grandfather- lung ca maternal grandmother- heart failure Social History Patient works at [employer] Not a smoker, drinker, no illicit drug use. Physical Exam Vital Signs Vital Signs Date Time Temp Pulse Resp B/P (MAP) Pulse Ox O2 Delivery O2 Flow Rate FiO2 05/17/17 06:15 97.3 84 16 122/67 (85) 97 05/16/17 18:00 98.1 84 17 133/62 (85) 96 Physical Exam GENERAL: This is a well-nourished, well-developed patient, child like. SKIN: No rashes, ecchymoses or lesions. Cool and dry. HEAD: Atraumatic. Normocephalic. No temporal or scalp tenderness. EYES: Pupils slightly dilated equal round and reactive. Extraocular motions intact. No scleral icterus. No injection or drainage. ENT: Nose without bleeding, purulent drainage or septal hematoma. Throat without erythema. Airway patent. NECK: Trachea midline. No JVD, supple, nontender. CARDIOVASCULAR: Regular rate and rhythm without murmurs, gallops, or rubs. RESPIRATORY: Clear to auscultation. Breath sounds equal bilaterally. No wheezes , rales, or rhonchi. GASTROINTESTINAL: Abdomen soft, non-tender, nondistended. MUSCULOSKELETAL: Extremities without clubbing, cyanosis, or edema. No joint tenderness, effusion, or edema noted. No calf tenderness. Negative Homans sign bilaterally. NEUROLOGICAL: Awake and alert oriented to self, place and thinks it is still April. Motor and sensory grossly within normal limits. Five out of 5 muscle strength in all muscle groups. Moves all extremities without difficulty, ambulating in knight. Normal speech. Result Diagram: 05/14/1782905/14/17829 Assessment and Plan Assessment and Plan 42-year-old male with history of autism spectrum admitted to medical psychiatry unit due to impulsive and dangerous behaviors. Medical team has been consult to due to elevated CK levels. Elevated CK - Possibly secondary to recent trial of Thorazine, this has now been discontinued as well as akathisia - CK on 05/15 979--->953 - No reports of recent trauma, falls, or statin use - Renal function stable last checked on 05/14 - We will provide oral rehydration and encourage by mouth fluids - Recheck levels as well as renal function tomorrow Autism spectrum with intermittent explosive disorder - Autism chronic, insomnia and mood medications being adjusted by psychiatry team - Recently started on propranolol for akathisia DVT prop. -ambulating Discussed Condition With Patient discussed with , nursing, and mother at length. Michelle Dawson May 17, 2017 12:08
[2017-05-17 18:00] VITALS: BP 115/66; PULSE 84; RESP 16; TEMP 97.8; O2SAT 97
[2017-05-17] MEDS: diphenhydrAMINE HCL 50 MG CAP PO PRN (21:13)
[2017-05-18] MEDS: hydrOXYzine HCL 50 MG TAB PO PRN (03:40)
[2017-05-18 05:28] LABS: BICARBONATE 28.4 MEQ/L (21.0-32.0); CALCIUM 9.2 MG/DL (8.5-10.1); CREATININE 0.93 MG/DL (0.60-1.30)
[2017-05-18] MEDS: PROPRANOLOL HCL 10 MG TAB PO SCH ×3 (05:32→20:36)
[2017-05-18 05:50] VITALS: BP 110/55; PULSE 70; RESP 18; TEMP 94.8; O2SAT 96
--- NOTE | 2017-05-18 08:09 | HHI.PR ---
Subjective Remarks 42-year old male with PMH significant for autism currently admitted in Medical psychiatric unit due to intermittent explosive disorder with mild rhabdomyolysis. Patient seen and examined in his broom eating breakfast. He denies any fevers, chills, nausea, vomiting, headaches, trouble urination or diarrhea. He does not voice any complaints, has been drinking fluids as recommended. Objective Vitals Vital Signs Date Time Temp Pulse Resp B/P (MAP) Pulse Ox O2 Delivery O2 Flow Rate FiO2 05/18/17 05:50 94.8 70 18 110/55 (73) 96 05/17/17 18:00 97.8 84 16 115/66 (82) 97 I/O 05/17/17 05/17/17 05/17/17 05/18/17 05/18/17 05/18/17 07:00 15:00 23:00 07:00 15:00 23:00 Intake Total 600 ml 120 ml 240 ml Balance 600 ml 120 ml 240 ml Intake Oral 600 ml 120 ml 240 ml # Voids 2 4 3 # Bowel Movements 1 Result Diagram: 05/14/17 0830 05/18/17 0440 Objective Remarks GENERAL: This is a well-nourished, well-developed patient, in no apparent distress. SKIN: No rashes, ecchymoses or lesions. Cool and dry. HEAD: Atraumatic. Normocephalic. EYES: Pupils equal round and reactive. Extraocular motions intact. No scleral icterus. No injection or drainage. ENT: Nose without bleeding, purulent drainage or septal hematoma. Airway patent. NECK: Trachea midline. CARDIOVASCULAR: Regular rate and rhythm without murmurs, gallops, or rubs. RESPIRATORY: Clear to auscultation. Breath sounds equal bilaterally. No wheezes , rales, or rhonchi. GASTROINTESTINAL: Abdomen soft, non-tender, nondistended. MUSCULOSKELETAL: Extremities without clubbing, cyanosis, or edema. No joint tenderness, effusion, or edema noted. NEUROLOGICAL: Awake and alert oriented to self, place. Motor and sensory grossly within normal limits. Five out of 5 muscle strength in all muscle groups. Normal speech. A/P Problem List: (1) Intermittent explosive disorder ICD Code: F63.81 - Intermittent explosive disorder Status: Acute (2) Autism spectrum disorder ICD Code: F84.0 - Autistic disorder Status: Chronic (3) Elevated creatine kinase level ICD Code: R74.8 - Abnormal levels of other serum enzymes Status: Acute Assessment and Plan 42-year-old male with history of autism spectrum admitted to medical psychiatry unit due to impulsive and dangerous behaviors. Medical team has been consult to due to elevated CK levels. Elevated CK - Possibly secondary to recent trial of Thorazine, which was discontinued as well as akathisia - CK on 05/15 979--->953--->388 - No reports of recent trauma, falls, or statin use - Renal function stable - Continue oral fluids - CK trending down. Autism spectrum with intermittent explosive disorder - Autism chronic, insomnia and mood medications being adjusted by psychiatry team - Recently started on propranolol for akathisia DVT prop. -ambulating Michelle Dawson May 18, 2017 08:09
[2017-05-18] MEDS: LURASIDONE 40 MG TAB PO SCH (08:35)
[2017-05-18] MEDS: clonazePAM 0.5 MG TAB PO SCH ×2 (08:35→20:36)
[2017-05-18] MEDS: FAMOTIDINE 20 MG TAB PO SCH (08:35)
[2017-05-18] MEDS: DIVALPROEX SODIUM E.R. 500 MG TAB PO SCH ×2 (08:35→20:37)
[2017-05-18] MEDS: BENZTROPINE MESYLATE 1 MG TAB PO SCH ×2 (08:35→20:37)
--- NOTE | 2017-05-18 09:37 | HHI.PYPN ---
Subjective Remarks Patient seen for follow-up, chart review. Discussion she staff reported the patient slept poorly last evening about 3 hours and was found patient this morning; CK level trending down. Patient was found ambulating around the unit was was redirected back to his room for interview. Patient states that he is feeling "okay" when asked if he slept well last evening he states yes. Patient reports feeling well with medication denies any adverse drug reactions. When asked if patient normally paces when he's home he states yes will need to be confirmed with mother. Patient reports having visited by his mother and her mother's friend last evening we states went well. Patient noted to be more engaging and less confused today but as per nursing continues to have moments of confusion at times require more concrete direction. Review of Systems Except as stated in HPI: all other systems reviewed are Neg Mental Status Examination Appearance: Appropriate Consciousness: Alert Orientation: Person, Place, Date/Time Motor Activity: Normal gait (noted to be ambulating well) Speech: Hesitant, Slow Language: Adequate Fund of Knowledge: Inadequate Attention and Concentration: Inadequate Memory: Impaired Mood: Appropriate Affect: Blunt (slightly) Thought Process & Associations: Other (concrete) Thought Content: Appropriate Hallucination Type: None Delusion Type: None Suicidal Ideation: No Suicidal Plan: No Suicidal Intention: No Homicidal Ideation: No Homicidal Plan: No Homicidal Intention: No Insight: Fair Judgment: Adequate Results Labs Labs reviewed Test 05/18/17 04:40 Blood Urea Nitrogen 16 MG/DL Creatinine 0.93 MG/DL Random Glucose 81 MG/DL Calcium Level 9.2 MG/DL Sodium Level 141 MEQ/L Potassium Level 4.3 MEQ/L Chloride Level 105 MEQ/L Carbon Dioxide Level 28.4 MEQ/L Anion Gap 8 MEQ/L Estimat Glomerular Filtration Rate 90 ML/MIN Total Creatine Kinase 388 U/L Creatine Kinase MB 2.9 NG/ML Creatine Kinase MB % 0.7 % Vitals/IOs Vital Signs Date Time Temp Pulse Resp B/P (MAP) Pulse Ox O2 Delivery O2 Flow Rate FiO2 05/18/17 05:50 94.8 70 18 110/55 (73) 96 Intake and Output 05/18/17 05/18/17 05/19/17 08:00 16:00 00:00 Intake Total 240 ml Balance 240 ml Assessment & Plan Problem List: (1) Intermittent explosive disorder ICD Codes: F63.81 - Intermittent explosive disorder (2) Extrapyramidal syndrome ICD Codes: G25.9 - Extrapyramidal and movement disorder, unspecified Status: Acute Assessment & Plan Patient at this time noted to be less disorganized, able to engage more appropriately during interview with less speech delay in response. Patient had poor sleep last evening about 3 hours. One of the main concern from the mother was a patient was not sleeping well at night that caused him to decompensate. Patient was sleeping well previously with Thorazine but is also noted to be sensitive to neuroleptics and was presenting with EPS while on Thorazine which has been now discontinued. Patient no longer noted with EPS symptoms aside from some mild akathisia which currently being treated with propranolol at this time started yesterday. We'll start trazodone 50 mg at bedtime to assist with sleep disturbance. Continue by mouth intake of fluids as CK is trending down now. Will obtain collateral from mother pertaining to her visit with her son last evening. Discharge planning in progress Justification for Cont. Inpt. At risk for decompensation at lower level of care Discharge Planning To be discharged back to mother's residence when psychiatrically stable Request HC Surrog/Guard Advoc?: Yes Jefferson Wolfe MD May 18, 2017 09:37
--- NOTE | 2017-05-18 12:16 | HHI.PR ---
Addendum to Inpatient Note Addendum Reason: Additional Documentation Additional Information pt with rhabdo, mild improved significantly overnight with po hydration needs po hydration, water jar offer to patient frequently will sign off the case medically cleared King Pruett MD May 18, 2017 12:16
[2017-05-18 18:00] VITALS: BP 120/56; PULSE 79; RESP 17; TEMP 97.5; O2SAT 98
[2017-05-18] MEDS ORDERED: traZODone HCL 50 MG TAB PO SCH (21:00)
[2017-05-19] MEDS: PROPRANOLOL HCL 10 MG TAB PO SCH ×3 (05:40→20:53)
[2017-05-19 06:09] VITALS: BP 102/57; PULSE 73; RESP 16; TEMP 97.5; O2SAT 96
[2017-05-19] MEDS: LURASIDONE 40 MG TAB PO SCH (07:44)
[2017-05-19] MEDS: FAMOTIDINE 20 MG TAB PO SCH (07:44)
[2017-05-19] MEDS: clonazePAM 0.5 MG TAB PO SCH ×2 (07:44→20:52)
[2017-05-19] MEDS: BENZTROPINE MESYLATE 1 MG TAB PO SCH ×2 (07:44→20:53)
[2017-05-19] MEDS: DIVALPROEX SODIUM E.R. 500 MG TAB PO SCH ×2 (07:44→20:52)
[2017-05-19] MEDS: ACETAMINOPHEN 325 MG TAB PO PRN (07:59)
--- NOTE | 2017-05-19 08:08 | HHI.PR ---
Subjective Remarks 42-year old male with PMH significant for autism currently admitted in Medical psychiatric unit due to intermittent explosive disorder with mild rhabdomyolysis. Patient seen and examined in his room eating breakfast, he is calm and cooperative. Complaints of back pain, spoke with nurse who states he just received something for pain. Nurse states patient had a good night with no acute issues. Patient denies fevers, chills, nausea, vomiting, issues with voiding or moving bowels. Objective Vitals Vital Signs Date Time Temp Pulse Resp B/P (MAP) Pulse Ox O2 Delivery O2 Flow Rate FiO2 05/19/17 06:09 97.5 73 16 102/57 (72) 96 05/18/17 18:00 97.5 79 17 120/56 (77) 98 I/O 05/18/17 05/18/17 05/18/17 05/19/17 05/19/17 05/19/17 07:00 15:00 23:00 07:00 15:00 23:00 Intake Total 240 ml 240 ml 720 ml 240 ml Balance 240 ml 240 ml 720 ml 240 ml Intake Oral 240 ml 240 ml 720 ml 240 ml # Voids 3 3 2 Result Diagram: 05/18/17 0440 Objective Remarks GENERAL: This is a well-nourished, well-developed patient, in no apparent distress. SKIN: No rashes, ecchymoses or lesions. Cool and dry. HEAD: Atraumatic. Normocephalic. EYES: Pupils equal round and reactive. Extraocular motions intact. No scleral icterus. No injection or drainage. ENT: Nose without bleeding, purulent drainage or septal hematoma. Airway patent. NECK: Trachea midline. CARDIOVASCULAR: Regular rate and rhythm without murmurs, gallops, or rubs. RESPIRATORY: Clear to auscultation. Breath sounds equal bilaterally. No wheezes , rales, or rhonchi. GASTROINTESTINAL: Abdomen soft, non-tender, nondistended. MUSCULOSKELETAL: Extremities without clubbing, cyanosis, or edema. No joint tenderness, effusion, or edema noted. NEUROLOGICAL: Awake and alert oriented to self, place. Motor and sensory grossly within normal limits. Five out of 5 muscle strength in all muscle groups. Normal speech. A/P Problem List: (1) Intermittent explosive disorder ICD Code: F63.81 - Intermittent explosive disorder Status: Acute (2) Autism spectrum disorder ICD Code: F84.0 - Autistic disorder Status: Chronic (3) Elevated creatine kinase level ICD Code: R74.8 - Abnormal levels of other serum enzymes Status: Acute Assessment and Plan 42-year-old male with history of autism spectrum admitted to medical psychiatry unit due to impulsive and dangerous behaviors. Medical team has been consult to due to elevated CK levels. Elevated CK - Possibly secondary to recent trial of Thorazine, which was discontinued as well as akathisia - CK on 05/15 979--->953--->388 - No reports of recent trauma, falls, or statin use - Renal function stable - Continue oral fluids - Recheck CK tomorrow Autism spectrum with intermittent explosive disorder - Autism chronic, insomnia and mood medications being adjusted by psychiatry team - On propranolol for akathisia DVT prop. -ambulating Michelle Dawson May 19, 2017 08:08
--- NOTE | 2017-05-19 09:22 | HHI.PR ---
Subjective Remarks NO NEW COMPLAINTS SEEN IN THE ROOM WITH HIS RN MOVING AROUND QUITE WELL Objective Vitals Vital Signs Date Time Temp Pulse Resp B/P (MAP) Pulse Ox O2 Delivery O2 Flow Rate FiO2 05/19/17 06:09 97.5 73 16 102/57 (72) 96 05/18/17 18:00 97.5 79 17 120/56 (77) 98 I/O 05/18/17 05/18/17 05/18/17 05/19/17 05/19/17 05/19/17 07:00 15:00 23:00 07:00 15:00 23:00 Intake Total 240 ml 240 ml 720 ml 240 ml Balance 240 ml 240 ml 720 ml 240 ml Intake Oral 240 ml 240 ml 720 ml 240 ml # Voids 3 3 2 Result Diagram: 05/18/17 0440 Other Results Laboratory Tests Test 05/16/17 11:12 05/18/17 04:40 Total Creatine Kinase 953 U/L 388 U/L Creatine Kinase MB 3.7 NG/ML 2.9 NG/ML Creatine Kinase MB % 0.4 % 0.7 % Valproic Acid (Depakene) Level 81 MCG/ML Blood Urea Nitrogen 16 MG/DL Creatinine 0.93 MG/DL Random Glucose 81 MG/DL Calcium Level 9.2 MG/DL Sodium Level 141 MEQ/L Potassium Level 4.3 MEQ/L Chloride Level 105 MEQ/L Carbon Dioxide Level 28.4 MEQ/L Anion Gap 8 MEQ/L Estimat Glomerular Filtration Rate 90 ML/MIN Objective Remarks GENERAL: Awake alert talkative and cooperative no complaints during exam SKIN: Warm and dry. HEAD: Atraumatic. Normocephalic. EYES: Pupils equal and round. No scleral icterus. No injection or drainage. Extraocular muscles intact ENT: No nasal bleeding or discharge. Mucous membranes pink and moist. Tongue is midline NECK: Trachea midline. No JVD. Supple CARDIOVASCULAR: Regular rate and rhythm. S1-S2 no S3 or S4 RESPIRATORY: No accessory muscle use. Clear to auscultation. Breath sounds equal bilaterally. GASTROINTESTINAL: Abdomen soft, non-tender, nondistended. Hepatic and splenic margins not palpable. MUSCULOSKELETAL: Extremities without clubbing, cyanosis, or edema. No obvious deformities. NEUROLOGICAL: Awake and alert. No obvious cranial nerve deficits. Motor grossly within normal limits. Five out of 5 muscle strength in the arms and legs. Normal speech. PSYCHIATRIC: INAppropriate mood and affect; insight and judgment ABnormal. Procedures NONE Medications and IVs Current Medications Lorazepam (Ativan) 1 mg Q6H PRN PO MODERATE TO SEVERE ANXIETY Last administered on 05/17/17 02:19; Start 05/06/17 at 12:30 Lorazepam (Ativan Inj) 1 mg Q6H PRN IM MODERATE TO SEVERE ANXIETY Last administered on 05/14/17 21:20; Start 05/06/17 at 12:30 Diphenhydramine HCl (Benadryl) 50 mg Q6H PRN PO For mild anxiety and/or EPS Last administered on 05/17/17 21:13; Start 05/06/17 at 12:30 Diphenhydramine HCl (Benadryl Inj) 50 mg Q6H PRN IM For mild anxiety and/or EPS Last administered on 05/15/17 04:41; Start 05/06/17 at 12:30 Acetaminophen (Tylenol) 650 mg Q4H PRN PO Pain 1-5 or Temp >101F Last administered on 05/19/17 07:59; Start 05/06/17 at 12:30 Magnesium Hydroxide (Milk Of Magnesia Liq) 30 ml DAILY PRN PO CONSTIPATION; Start 05/06/17 at 12:30 Al Hydrox/Mg Hydrox/Simethicone (Mag-Al Plus Susp Liq) 30 ml Q6H PRN PO DYSPEPSIA Last administered on 05/07/17 16:25; Start 05/06/17 at 12:30 Clonazepam (KlonoPIN) 2 mg HS PO Last administered on 05/11/17 21:46; Start 05/06/17 at 21:00; Stop 05/12/17 at 11:46; Status DC Divalproex Sodium (Depakote Er) 500 mg BID PO Last administered on 05/09/17 20:35; Start 05/06/17 at 21:00; Stop 05/10/17 at 09:15; Status DC Famotidine (Pepcid) 20 mg DAILY PO Last administered on 05/19/17 07:44; Start 05/06/17 at 12:45 Lurasidone HCl (Latuda) 40 mg BID PO Last administered on 05/15/17 08:55; Start 05/06/17 at 21:00; Stop 05/15/17 at 13:08; Status DC Hydroxyzine HCl (Atarax) 50 mg Q6H PRN PO ANXIETY Last administered on at 03:40; Start 05/07/17 at 08:00 Ondansetron HCl (Zofran Odt) 4 mg Q6H PRN PO NAUSEA OR VOMITING Last administered on 05/07/17 18:30; Start 05/07/17 at 18:30 Chlorpromazine (Thorazine) 100 mg HS PO Last administered on 05/11/17 21:47; Start 05/09/17 at 21:00; Stop 05/12/17 at 09:47; Status DC Divalproex Sodium (Depakote Er) 500 mg BID PO Last administered on 05/14/17 08:47; Start 05/10/17 at 09:15; Stop 05/14/17 at 19:28; Status DC Chlorpromazine (Thorazine) 50 mg HS PO Last administered on 05/12/17 20:17; Start 05/12/17 at 21:00; Stop 05/13/17 at 16:17; Status DC Clonazepam (KlonoPIN) 1 mg HS PO Last administered on 05/12/17 20:17; Start 05/12/17 at 21:00; Stop 05/13/17 at 16:17; Status DC Chlorpromazine (Thorazine) 25 mg HS PO Last administered on 05/13/17 21:43; Start 05/13/17 at 21:00; Stop 05/14/17 at 15:27; Status DC Clonazepam (KlonoPIN) 0.5 mg HS PO Last administered on 05/15/17 21:59; Start 05/13/17 at 21:00; Stop 05/16/17 at 09:47; Status DC Miscellaneous (Pill Splitter) 1 ea UNSCH PRN OTHER SEE LABEL COMMENTS; Start 05/13/17 at 17:00 Chlorpromazine (Thorazine) 25 mg HS PO ; Start 05/14/17 at 21:00; Stop at 21:00; Status DC Benztropine Mesylate (Cogentin) 1 mg ONCE ONCE PO Last administered on 17:30; Start 05/14/17 at 17:30; Stop 05/14/17 at 17:31; Status DC Benztropine Mesylate (Cogentin) 0.5 mg HS PO ; Start 05/14/17 at 21:00; Stop 05/14/17 at 21:00; Status DC Divalproex Sodium (Depakote Er) 500 mg DAILY PO Last administered on 05/16/17at 09:10; Start 05/15/17 at 09:00; Stop 05/16/17 at 09:47; Status DC Divalproex Sodium (Depakote Er) 250 mg HS PO Last administered on 05/15/17t 21 :59; Start 05/14/17 at 21:00; Stop 05/16/17 at 09:47; Status DC Benztropine Mesylate (Cogentin) 0.5 mg BID PO Last administered on 05/19/17at 07: 44; Start 05/14/17 at 21:00 Lurasidone HCl (Latuda) 40 mg DAILY PO Last administered on 05/19/17at 07:44; Start 05/16/17 at 09:00 Benztropine Mesylate (Cogentin) 1 mg ONCE ONCE PO Last administered on t 13:15; Start 05/15/17 at 13:15; Stop 05/15/17 at 13:16; Status DC Benztropine Mesylate (Cogentin) 1 mg Q8HR PRN PO Extrapyramidal symptoms; Start 05/15/17 at 13:15 Clonazepam (KlonoPIN) 0.5 mg BID PO Last administered on 05/19/17at 07:44; Start 05/16/17 at 21:00 Divalproex Sodium (Depakote Er) 500 mg BID PO Last administered on 05/19/17at 07: 44; Start 05/16/17 at 21:00 Propranolol HCl (Inderal) 10 mg Q8HR PO Last administered on 05/19/17at 05:40; Start 05/17/17 at 10:00 Trazodone HCl (Desyrel) 50 mg HS PO Last administered on 05/18/17at 20:37; Start 05/18/17 at 21:00 A/P Problem List: (1) Intermittent explosive disorder ICD Code: F63.81 - Intermittent explosive disorder Status: Acute (2) Autism spectrum disorder ICD Code: F84.0 - Autistic disorder Status: Chronic (3) Elevated creatine kinase level ICD Code: R74.8 - Abnormal levels of other serum enzymes Status: Acute Assessment and Plan 42-year-old male with history of autism spectrum admitted to medical psychiatry unit due to impulsive and dangerous behaviors. Medical team has been consult to due to elevated CK levels. Elevated CK - Possibly secondary to recent trial of Thorazine, which was discontinued as well as akathisia - CK on 05/15 979--->953--->388 - No reports of recent trauma, falls, or statin use - Renal function stable - Continue oral fluids - Recheck CK ON 1-6 Autism spectrum with intermittent explosive disorder - Autism chronic, insomnia and mood medications being adjusted by psychiatry team - On propranolol for akathisia DVT prop. -ambulating Ramy Morgan DO May 19, 2017 09:22
--- NOTE | 2017-05-19 14:37 | HHI.PYPN ---
Subjective Remarks Patient seen for follow up; chart reviewed. Discussion she staff reported patient had trazodone last evening to help him sleep which does not help but noted to be cooperative and eating well. Patient was found in his room, cooperative stating that he slept very well last evening although contrary report nursing staff. He states feeling "better", denies any perceptual disturbances or delusions at this time. He states that he visited with mom yesterday which went well. Patient was taken to mental health court today which senior gis analyst granted continuance. Manufacturing Specialist spoke with patient's mother discussed treatment plan and agree to further hospitalization for stabilization. Review of Systems Except as stated in HPI: all other systems reviewed are Neg Mental Status Examination Appearance: Appropriate Consciousness: Alert Orientation: Person, Place, Date/Time Motor Activity: Normal gait (noted to be ambulating well) Speech: Hesitant, Slow Language: Adequate Fund of Knowledge: Inadequate Attention and Concentration: Inadequate Memory: Impaired Mood: Appropriate Affect: Blunt (slightly) Thought Process & Associations: Other (concrete) Thought Content: Appropriate Hallucination Type: None Delusion Type: None Suicidal Ideation: No Suicidal Plan: No Suicidal Intention: No Homicidal Ideation: No Homicidal Plan: No Homicidal Intention: No Insight: Fair Judgment: Adequate Results Vitals/IOs Vital Signs Date Time Temp Pulse Resp B/P (MAP) Pulse Ox O2 Delivery O2 Flow Rate FiO2 05/19/17 06:09 97.5 73 16 102/57 (72) 96 Intake and Output 05/19/17 05/19/17 05/20/17 08:00 16:00 00:00 Intake Total 240 ml 240 ml Balance 240 ml 240 ml Assessment & Plan Problem List: (1) Intermittent explosive disorder ICD Codes: F63.81 - Intermittent explosive disorder (2) Extrapyramidal syndrome ICD Codes: G25.9 - Extrapyramidal and movement disorder, unspecified Status: Acute Assessment & Plan Patient at this time noted to be very concrete secondary to autism but denies any physical disturbances noted to have less akathisia, more engaging in interview compared to previous encounters with less response delay. Patient easily redirectable. Patient continues with poor sleep which has been one of the primary concerns with patient's mother having this be in a primary trigger for his decompensation. Will discontinue trazodone and add zolpidem 5 mg by mouth at bedtime with upper titration as needed. Continue with the medications. Discharge planning in progress Justification for Cont. Inpt. At risk for further decompensation if at lower level of care Discharge Planning Return back to mother's residence when psychiatrically stable Request HC Surrog/Guard Advoc?: Yes Jefferson Wolfe MD May 19, 2017 14:37
[2017-05-19 17:36] VITALS: BP 101/56; PULSE 70; RESP 18; TEMP 97.7; O2SAT 96
[2017-05-19] MEDS: ZOLPIDEM TARTRATE 5 MG TAB PO SCH (20:52)
[2017-05-20] MEDS: PROPRANOLOL HCL 10 MG TAB PO SCH ×3 (05:27→20:46)
[2017-05-20 06:04] VITALS: BP 106/50; PULSE 70; RESP 17; TEMP 97.9; O2SAT 96
--- NOTE | 2017-05-20 07:55 | HHI.PR ---
Subjective Remarks 42-year old male with PMH significant for autism currently admitted in Medical psychiatric unit due to intermittent explosive disorder with mild rhabdomyolysis. Patient seen and examined in room eating breakfast and walking around. He has no complains, denies muscle aches, trouble voiding, headache N/V/ D. Objective Vitals Vital Signs Date Time Temp Pulse Resp B/P (MAP) Pulse Ox O2 Delivery O2 Flow Rate FiO2 05/20/17 06:04 97.9 70 17 106/50 (68) 96 05/19/17 17:36 97.7 70 18 101/56 (71) 96 I/O 05/19/17 05/19/17 05/19/17 05/20/17 05/20/17 05/20/17 07:00 15:00 23:00 07:00 15:00 23:00 Intake Total 240 ml 480 ml 1800 ml 0 ml Balance 240 ml 480 ml 1800 ml 0 ml Intake Oral 240 ml 480 ml 1800 ml 0 ml # Voids 2 7 2 Result Diagram: 05/18/17 0440 Objective Remarks GENERAL: This is a well-nourished, well-developed patient, in no apparent distress. SKIN: No rashes, ecchymoses or lesions. Cool and dry. HEAD: Atraumatic. Normocephalic. EYES: Pupils equal round and reactive. Extraocular motions intact. No scleral icterus. No injection or drainage. ENT: Nose without bleeding, purulent drainage or septal hematoma. Airway patent. NECK: Trachea midline. CARDIOVASCULAR: Regular rate and rhythm without murmurs, gallops, or rubs. RESPIRATORY: Clear to auscultation. Breath sounds equal bilaterally. No wheezes , rales, or rhonchi. GASTROINTESTINAL: Abdomen soft, non-tender, nondistended. MUSCULOSKELETAL: Extremities without clubbing, cyanosis, or edema. No joint tenderness, effusion, or edema noted. NEUROLOGICAL: Awake and alert oriented to self, place. Motor and sensory grossly within normal limits. Five out of 5 muscle strength in all muscle groups. Normal speech. Procedures NONE A/P Problem List: (1) Intermittent explosive disorder ICD Code: F63.81 - Intermittent explosive disorder Status: Acute (2) Autism spectrum disorder ICD Code: F84.0 - Autistic disorder Status: Chronic (3) Elevated creatine kinase level ICD Code: R74.8 - Abnormal levels of other serum enzymes Status: Acute Assessment and Plan 42-year-old male with history of autism spectrum admitted to medical psychiatry unit due to impulsive and dangerous behaviors. Medical team has been consult to due to elevated CK levels. Elevated CK - Possibly secondary to recent trial of Thorazine, which was discontinued as well as akathisia - CK on 05/15 979--->953--->388 - No reports of recent trauma, falls, or statin use - Renal function stable - Continue oral fluids - CK pending Autism spectrum with intermittent explosive disorder - Autism chronic, insomnia and mood medications being adjusted by psychiatry team - On propranolol for akathisia DVT prop. -ambulating Michelle Dawson May 20, 2017 07:55
[2017-05-20] MEDS: DIVALPROEX SODIUM E.R. 500 MG TAB PO SCH ×2 (08:23→20:46)
[2017-05-20] MEDS: clonazePAM 0.5 MG TAB PO SCH ×2 (08:23→20:46)
[2017-05-20] MEDS: FAMOTIDINE 20 MG TAB PO SCH (08:23)
[2017-05-20] MEDS: BENZTROPINE MESYLATE 1 MG TAB PO SCH ×2 (08:23→20:48)
[2017-05-20] MEDS: LURASIDONE 40 MG TAB PO SCH (08:23)
--- NOTE | 2017-05-20 09:46 | HHI.PYPN ---
Subjective Remarks Patient seen for follow-up, chart reviewed. Discussion she staff reported the patient slept 6 hours last evening and noted more alert today. Patient was found lying in hospital bed watching television noted to have significant decrease in pacing, noted be calm and cooperative. Patient reports having slept well last evening reports that his mood has been good denies any physical complaints denies any perceptual disturbances. Patient noted to be more alert and engaging in interview with decrease in speech latency. Patient denies any perceptual disturbances, denies feeling depressed, manic or psychotic symptoms at this time. Review of Systems Except as stated in HPI: all other systems reviewed are Neg Mental Status Examination Appearance: Appropriate Consciousness: Alert Orientation: Person, Place, Date/Time Motor Activity: Normal gait (noted to be ambulating well) Speech: Hesitant, Slow Language: Adequate Fund of Knowledge: Inadequate Attention and Concentration: Inadequate Memory: Impaired Mood: Appropriate Affect: Blunt (slightly), Other (more reactive today) Thought Process & Associations: Linear, Other (concrete) Thought Content: Appropriate Hallucination Type: None Delusion Type: None Suicidal Ideation: No Suicidal Plan: No Suicidal Intention: No Homicidal Ideation: No Homicidal Plan: No Homicidal Intention: No Insight: Fair Judgment: Adequate Results Labs Labs reviewed Test 05/20/17 07:27 Total Creatine Kinase 87 U/L Vitals/IOs Vital Signs Date Time Temp Pulse Resp B/P (MAP) Pulse Ox O2 Delivery O2 Flow Rate FiO2 05/20/17 06:04 97.9 70 17 106/50 (68) 96 Intake and Output 05/20/17 05/20/17 05/21/17 08:00 16:00 00:00 Intake Total 240 ml Balance 240 ml Assessment & Plan Problem List: (1) Intermittent explosive disorder ICD Codes: F63.81 - Intermittent explosive disorder (2) Extrapyramidal syndrome ICD Codes: G25.9 - Extrapyramidal and movement disorder, unspecified Status: Acute Assessment & Plan Age at this time noted to have less akathisia tolerate medications well, having had 6 hours of sleep last evening and labs reported decrease in CK level. We' ll continue current treatment for now. Continue to monitor sleep pattern and mood and behavior. Discharge planning in progress Justification for Cont. Inpt. At risk for further decompensation if at lower level of care Discharge Planning To be discharged back home with mother when psychiatrically stable Request HC Surrog/Guard Advoc?: Yes Jefferson Wolfe MD May 20, 2017 09:46
[2017-05-20 18:00] VITALS: BP 132/65; PULSE 82; RESP 17; TEMP 97.9; O2SAT 96
[2017-05-20] MEDS: ZOLPIDEM TARTRATE 5 MG TAB PO SCH (20:45)
[2017-05-21 05:36] VITALS: BP 117/57; PULSE 68; RESP 16; TEMP 98.5; O2SAT 97
[2017-05-21] MEDS: PROPRANOLOL HCL 10 MG TAB PO SCH ×3 (05:40→21:22)
[2017-05-21 08:11] LABS: AUTOMATED NEUTROPHIL # 3.9 TH/MM3 (1.8-7.7); BASOPHIL % 0.3 % (0.0-2.0); EOSINOPHIL # 0.1 TH/MM3 (0-0.4); HEMOGLOBIN 14.4 GM/DL (13.0-17.0); LYMPH % 29.7 % (9.0-44.0); MEAN CELL VOLUME 87.4 FL (80.0-100.0); MEAN CORPUSCULAR HEMOGLOBIN 29.9 PG (27.0-34.0); MEAN CORPUSCULAR HGB CONC 34.3 % (32.0-36.0); MEAN PLATELET VOLUME 8.8 FL (7.0-11.0); MONOCYTE # 0.7 TH/MM3 (0-0.9); PLATELET COUNT 235 TH/MM3 (150-450); WHITE BLOOD COUNT 6.7 TH/MM3 (4.0-11.0)
[2017-05-21 08:34] LABS: ALBUMIN 3.6 GM/DL (3.4-5.0); AST (GOT) 9 U/L (15-37); BICARBONATE 27.4 MEQ/L (21.0-32.0); BLOOD UREA NITROGEN 15 MG/DL (7-18); CALCIUM 8.7 MG/DL (8.5-10.1); CHLORIDE 106 MEQ/L (98-107); GLOMERULAR FILTRATION RATE 107 ML/MIN (>89); GLUCOSE,RANDOM 79 MG/DL (74-106); MAGNESIUM 2.1 MG/DL (1.5-2.5); SODIUM (NA) 139 MEQ/L (136-145)
[2017-05-21 08:37] LABS: ALKALINE PHOSPHATASE 41 U/L (45-117); ALT (GPT) 20 U/L (12-78); PHOSPHORUS 2.7 MG/DL (2.5-4.9); TOTAL BILIRUBIN ADULT 0.2 MG/DL (0.2-1.0); TOTAL PROTEIN 6.4 GM/DL (6.4-8.2)
[2017-05-21] MEDS: DIVALPROEX SODIUM E.R. 500 MG TAB PO SCH ×2 (09:00→21:22)
[2017-05-21] MEDS: clonazePAM 0.5 MG TAB PO SCH ×2 (09:00→21:22)
[2017-05-21] MEDS: BENZTROPINE MESYLATE 1 MG TAB PO SCH ×2 (09:00→21:22)
[2017-05-21] MEDS: LURASIDONE 40 MG TAB PO SCH (09:00)
[2017-05-21] MEDS: FAMOTIDINE 20 MG TAB PO SCH (09:00)
--- NOTE | 2017-05-21 13:09 | HHI.PYPN ---
Subjective Remarks No changes Review of Systems Except as stated in HPI: all other systems reviewed are Neg Mental Status Examination Appearance: Appropriate Consciousness: Alert Orientation: Person, Place, Date/Time Motor Activity: Normal gait (noted to be ambulating well) Speech: Hesitant, Slow Language: Adequate Fund of Knowledge: Inadequate Attention and Concentration: Inadequate Memory: Impaired Mood: Appropriate Affect: Blunt (slightly), Other (more reactive today) Thought Process & Associations: Linear, Other (concrete) Thought Content: Appropriate Hallucination Type: None Delusion Type: None Suicidal Ideation: No Suicidal Plan: No Suicidal Intention: No Homicidal Ideation: No Homicidal Plan: No Homicidal Intention: No Insight: Fair Judgment: Adequate Results Labs Test 05/21/17 07:30 White Blood Count 6.7 TH/MM3 Red Blood Count 4.80 MIL/MM3 Hemoglobin 14.4 GM/DL Hematocrit 42.0 % Mean Corpuscular Volume 87.4 FL Mean Corpuscular Hemoglobin 29.9 PG Mean Corpuscular Hemoglobin Concent 34.3 % Red Cell Distribution Width 13.0 % Platelet Count 235 TH/MM3 Mean Platelet Volume 8.8 FL Neutrophils (%) (Auto) 58.0 % Lymphocytes (%) (Auto) 29.7 % Monocytes (%) (Auto) 10.0 % Eosinophils (%) (Auto) 2.0 % Basophils (%) (Auto) 0.3 % Neutrophils # (Auto) 3.9 TH/MM3 Lymphocytes # (Auto) 2.0 TH/MM3 Monocytes # (Auto) 0.7 TH/MM3 Eosinophils # (Auto) 0.1 TH/MM3 Basophils # (Auto) 0.0 TH/MM3 CBC Comment DIFF FINAL Differential Comment Blood Urea Nitrogen 15 MG/DL Creatinine 0.80 MG/DL Random Glucose 79 MG/DL Total Protein 6.4 GM/DL Albumin 3.6 GM/DL Calcium Level 8.7 MG/DL Phosphorus Level 2.7 MG/DL Magnesium Level 2.1 MG/DL Alkaline Phosphatase 41 U/L Aspartate Amino Transf (AST/SGOT) 9 U/L Alanine Aminotransferase (ALT/SGPT) 20 U/L Total Bilirubin 0.2 MG/DL Sodium Level 139 MEQ/L Potassium Level 4.1 MEQ/L Chloride Level 106 MEQ/L Carbon Dioxide Level 27.4 MEQ/L Anion Gap 6 MEQ/L Estimat Glomerular Filtration Rate 107 ML/MIN Total Creatine Kinase 81 U/L Vitals/IOs Vital Signs Date Time Temp Pulse Resp B/P (MAP) Pulse Ox O2 Delivery O2 Flow Rate FiO2 05/21/17 05:36 98.5 68 16 117/57 (77) 97 Intake and Output 05/21/17 05/21/17 05/22/17 08:00 16:00 00:00 Intake Total 480 ml Balance 480 ml Assessment & Plan Problem List: (1) Intermittent explosive disorder ICD Codes: F63.81 - Intermittent explosive disorder (2) Extrapyramidal syndrome ICD Codes: G25.9 - Extrapyramidal and movement disorder, unspecified Status: Acute Assessment & Plan Estimated LOS: days. Reported placement issue. Justification for Cont. Inpt. Likely to decompensate at lower level of care. Request HC Surrog/Guard Advoc?: Yes John Maier MD May 21, 2017 13:09
[2017-05-21 18:00] VITALS: BP 114/57; PULSE 74; RESP 16; TEMP 98.8; O2SAT 96
[2017-05-21] MEDS: ZOLPIDEM TARTRATE 5 MG TAB PO SCH (21:22)
[2017-05-22] MEDS: PROPRANOLOL HCL 10 MG TAB PO SCH ×3 (06:00→21:57)
[2017-05-22 06:47] VITALS: BP 106/55; PULSE 69; RESP 16; TEMP 98.1; O2SAT 96
[2017-05-22] MEDS: DIVALPROEX SODIUM E.R. 500 MG TAB PO SCH ×2 (09:46→21:56)
[2017-05-22] MEDS: FAMOTIDINE 20 MG TAB PO SCH (09:46)
[2017-05-22] MEDS: clonazePAM 0.5 MG TAB PO SCH ×2 (09:46→21:57)
[2017-05-22] MEDS: LURASIDONE 40 MG TAB PO SCH (09:46)
[2017-05-22] MEDS: BENZTROPINE MESYLATE 1 MG TAB PO SCH ×2 (09:46→21:56)
[2017-05-22] MEDS: ZOLPIDEM TARTRATE 5 MG TAB PO SCH (21:56)
[2017-05-23] MEDS: PROPRANOLOL HCL 10 MG TAB PO SCH ×3 (06:11→22:12)
[2017-05-23 06:32] VITALS: BP 117/73; PULSE 57; RESP 16; TEMP 97.8; O2SAT 99
[2017-05-23] MEDS: clonazePAM 0.5 MG TAB PO SCH ×2 (08:19→22:13)
[2017-05-23] MEDS: DIVALPROEX SODIUM E.R. 500 MG TAB PO SCH ×2 (08:19→22:13)
[2017-05-23] MEDS: FAMOTIDINE 20 MG TAB PO SCH (08:19)
[2017-05-23] MEDS: LURASIDONE 40 MG TAB PO SCH (08:19)
[2017-05-23] MEDS: BENZTROPINE MESYLATE 1 MG TAB PO SCH ×2 (08:20→22:13)
--- NOTE | 2017-05-23 11:13 | HHI.PYPN ---
Subjective Remarks Psychiatric progress note for May 22, 2017. Patient seen at bedside. Medical record reviewed. Case discussed with nurse. No changes. Review of Systems ROS Limitations: Clinical Condition Except as stated in HPI: all other systems reviewed are Neg Mental Status Examination Appearance: Appropriate Consciousness: Alert Orientation: Person, Place, Date/Time Motor Activity: Normal gait (noted to be ambulating well) Speech: Hesitant, Slow Language: Adequate Fund of Knowledge: Inadequate Attention and Concentration: Inadequate Memory: Impaired Mood: Appropriate Affect: Blunt (slightly), Other (more reactive today) Thought Process & Associations: Linear, Other (concrete) Thought Content: Appropriate Hallucination Type: None Delusion Type: None Suicidal Ideation: No Suicidal Plan: No Suicidal Intention: No Homicidal Ideation: No Homicidal Plan: No Homicidal Intention: No Insight: Fair Judgment: Adequate Results Vitals/IOs Vital Signs Date Time Temp Pulse Resp B/P (MAP) Pulse Ox O2 Delivery O2 Flow Rate FiO2 05/23/17 06:32 97.8 57 16 117/73 (88) 99 Intake and Output 05/23/17 05/23/17 05/24/17 08:00 16:00 00:00 Intake Total 240 ml Balance 240 ml Assessment & Plan Problem List: (1) Intermittent explosive disorder ICD Codes: F63.81 - Intermittent explosive disorder (2) Extrapyramidal syndrome ICD Codes: G25.9 - Extrapyramidal and movement disorder, unspecified Status: Acute Assessment & Plan Estimated LOS: days. Continue current treatment plan and recommend placement at [facility] instead of with mother. Justification for Cont. Inpt. Likely to decompensate a lower level of care. Request HC Surrog/Guard Advoc?: Yes John Maier MD May 23, 2017 11:13
--- NOTE | 2017-05-23 16:35 | PD.TTN ---
Patient Problems 1. Discharge planning 2. Medication compliance 3. Knowledge deficit 4. Lack of coping skills Progress Toward Goals Provider Present: Dr. Joycelyn Wolfe Provider Input: 05/23/2017; patient sleep has improved and will probably be ready for dc by 05/24/2017 Patient is continuing to be monitored on the unit. Patient is compliant with medications and Nurse(s) Input: 05/23/2017; patient's sleep has improved, he is eating and taking his medication Patient has been compliant with medications and has not shown significant behavioral issues. Patient was confused and disoriented but is redirectable. Psychiatric Counselors Present: VERA Smith, Stephanie David [facility] Psych Therapist Input: 05/23/2017; counselor will ensure patient is set with outpatient service Patient will return to reside with mother once patient is stablized. Patient continues to be montiored on the unit and has not shown significant behavioral issues. Group Spec/RT/OT/MONTALVO Present: Taco Tran OT Group Spec/RT/OT/MONTALVO Input: 05/23/2017; per OT patient has good group attendance, and participation. Patient participates in some groups. Discharge Plan Patient will return home to mother once stablized. Documentation Scribe: VERA Smith Sandra LMHC May 23, 2017 16:35
--- NOTE | 2017-05-23 16:36 | HHI.PYPN ---
Subjective Remarks Patient seen for follow-up, chart reviewed. Discussion her sister reported the patient has not been a behavioral issue, they, pleasant with staff, and slept well last night (6 hours). Patient was found walking in the hallway noted to be calm and cooperative interview today. Patient reports having slept "real good" last night, denies having multiple awakenings last evening but did have some over the weekend. Patient denies any adverse progress from medications, was able to respond adequately to interview, no thought or speech latency noted. Patient denies any perceptual disturbances or delusions at this time. Review of Systems Except as stated in HPI: all other systems reviewed are Neg Mental Status Examination Appearance: Appropriate Consciousness: Alert Orientation: Person, Place, Date/Time Motor Activity: Normal gait (noted to be ambulating well) Speech: Hesitant, Slow Language: Adequate Fund of Knowledge: Inadequate Attention and Concentration: Inadequate Memory: Impaired Mood: Appropriate Affect: Appropriate Thought Process & Associations: Linear, Other (concrete) Thought Content: Appropriate Hallucination Type: None Delusion Type: None Suicidal Ideation: No Suicidal Plan: No Suicidal Intention: No Homicidal Ideation: No Homicidal Plan: No Homicidal Intention: No Insight: Fair Judgment: Adequate Results Vitals/IOs Vital Signs Date Time Temp Pulse Resp B/P (MAP) Pulse Ox O2 Delivery O2 Flow Rate FiO2 05/23/17 06:32 97.8 57 16 117/73 (88) 99 Intake and Output 05/23/17 05/23/17 05/24/17 08:00 16:00 00:00 Intake Total 240 ml 240 ml Balance 240 ml 240 ml Assessment & Plan Problem List: (1) Intermittent explosive disorder ICD Codes: F63.81 - Intermittent explosive disorder (2) Extrapyramidal syndrome ICD Codes: G25.9 - Extrapyramidal and movement disorder, unspecified Status: Resolved Assessment & Plan Age at this time noted to be reactive with good appropriate responses during interview, no EPS noted. Patient did sleep much better last evening about 6 hours but had decreased sleep over the weekend. We'll increase sober to 10 mg by mouth at bedtime. Continue with the medications. Discharge planning in progress Justification for Cont. Inpt. At risk for further decompensation if at lower level of care Discharge Planning Return back to his mother's residence Request HC Surrog/Guard Advoc?: Yes Jefferson Wolfe MD May 23, 2017 16:36
[2017-05-23 18:21] VITALS: BP 119/59; PULSE 65; RESP 16; TEMP 98.2; O2SAT 98
[2017-05-23] MEDS ORDERED: ZOLPIDEM TARTRATE 10 MG TAB PO SCH (21:00)
[2017-05-24] MEDS: PROPRANOLOL HCL 10 MG TAB PO SCH ×3 (06:00→09:53)
[2017-05-24 06:03] VITALS: BP 99/65; PULSE 57; RESP 16; TEMP 97.8; O2SAT 96
[2017-05-24] MEDS: FAMOTIDINE 20 MG TAB PO SCH (09:49)
[2017-05-24] MEDS: BENZTROPINE MESYLATE 1 MG TAB PO SCH (09:50)
[2017-05-24] MEDS: DIVALPROEX SODIUM E.R. 500 MG TAB PO SCH (09:50)
[2017-05-24] MEDS: LURASIDONE 40 MG TAB PO SCH (09:50)
[2017-05-24] MEDS: clonazePAM 0.5 MG TAB PO SCH (09:50)
[2017-05-24 09:54] VITALS: BP 99/64
[2017-05-24] MEDS ORDERED: CLON.5 PO (11:32)
[2017-05-24] MEDS ORDERED: PROP10TA6 PO (11:32)
[2017-05-24] MEDS ORDERED: LURA40 PO (11:32)
[2017-05-24] MEDS ORDERED: AMBI10TA PO (11:32)
[2017-05-24] MEDS ORDERED: FAMO20TA2 PO (11:32)
[2017-05-24] MEDS ORDERED: Benztropine PO (11:32)
[2017-05-24] MEDS ORDERED: DEPA500T3 PO (11:32)
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
== END 2017-05-24 14:00 | disposition home or self-care (01) | DRG 883 ==
LOC: NEPJ 11:41 → NEDA 12:23 → H4EA 15:30 → H260 05-10 07:34 → H4EA 05-14 09:55 → H260 05-22 11:57
PROVIDERS: ADMIT Student in an Organized Health Care Education/Training Program; ATTEND Student in an Organized Health Care Education/Training Program
DX: F63.81 Intermittent explosive disorder (principal); M62.82 Rhabdomyolysis; F84.0 Autistic disorder; G47.00 Insomnia, unspecified; F79 Unspecified intellectual disabilities; G25.71 Drug induced akathisia; T43.95XA Adverse effect of unspecified psychotropic drug, initial encounter; F41.9 Anxiety disorder, unspecified; M54.9 Dorsalgia, unspecified
CPT/HCPCS: 80048; 80053; 80061; 80164; 82306; 82550; 82552; 82607; 83036; 83735; 84100; 84443; 85025; 93005; J1200; J2060; Q0163